=== PATIENT | male | born 1965 | race Caucasian/White ===

== ENCOUNTER 2024-07-12 13:35 | Inpatient (IN) ==
[2024-07-12 14:04] LABS: iSTAT Creatinine 1.4 mg/dl (0.6-1.3); iSTAT Hemoglobin 15.6 g/dl (14.0-18.0); iSTAT Ionized Calcium 1.17 mmol/l (1.12-1.32); iSTAT Potassium 4.3 mmol/L (3.3-5.0)
--- NOTE | 2024-07-12 14:11 | CT Scan Report ---
CT head/brain wo con CLINICAL HISTORY: seizures. TECHNIQUE: Multiple axial CT images of the head were obtained without contrast. A dose lowering tech nique was utilized adhering to the principles of ALARA. CT DOSE: 625.8 mGy.cm COMPARISON: 09/01/2015 FINDINGS: There is a 5 cm area of high density centered in the region of a prior right-sided choroid plexus mass or AVM. The hypodensity likely represents a combination of embolization coils, glue, and calcification. This causes extensive spray artifact at that level, limiting evaluation. No intracrani al hemorrhage seen. No mass effect, midline shift, or hydrocephalus. No skull fracture seen. There is a mucous retention cyst in the left maxillary sinus. IMPRESSION: No acute findings seen. ACT 112: Negative or not required by law. The above report was generated using voice recognition software. It may contain grammatical, syntax o r spelling errors. Electronically signed by: Nixon Sales M.D. 07/12/2024 2:09 PM
[2024-07-12 14:29] LABS: Basophils # (auto) 0.03 K/uL (0.00-0.20); Basophils % (auto) 0.4 %; Eosinophils # (auto) 0.01 K/uL (0.00-0.50); Eosinophils % (auto) 0.1 %; Hematocrit (blood only) 45.5 % (42.0-52.0); Hemoglobin 15.2 g/dl (14.0-18.0); Immature Granulocytes # (auto) 0.03 K/uL (0.01-0.20); Immature Granulocytes % (auto) 0.4 %; Lymphocytes # (auto) 0.68 K/uL (1.20-3.40); Lymphocytes % (auto) 9.6 %; Mean Corpuscular Hemoglobin 26.7 pg (25.0-34.0); Mean Corpuscular Hgb Conc 33.4 g/dL (32.0-36.0); Mean Corpuscular Volume 79.8 fL (80.0-100.0); Monocytes # (auto) 0.36 K/uL (0.11-0.59); Monocytes % (auto) 5.1 %; Neutrophils # (auto) 5.99 K/uL (1.40-6.50); Neutrophils % (auto) 84.4 %; Platelet Count 165 K/uL (130-400); RDW Coefficient of Variation 13.6 % (11.5-14.5); RDW Standard Deviation 38.5 fL (36.4-46.3)
[2024-07-12 14:46] LABS: Base Excess VBG -8.2 mEq/L; HCO3 VBG 16 mmol/L; Oxygen Saturation VBG 95.1 %; PCO2 VBG 30 mmHg (38-50); PO2 VBG 71 mmHg; pH VBG 7.34 (7.36-7.41)
[2024-07-12 14:47] LABS: Albumin Globulin Ratio 1.2 (0.9-2); Albumin Level 4.1 gm/dl (3.4-5.0); BUN Creatinine Ratio 23.1 (10-20); Bilirubin,Total 1.1 mg/dl (0.2-1.0); Calcium 9.5 mg/dl (8.6-10.3); Creatinine Clr Calc Pharmacy 61.4 ml/min; Globulin 3.3 gm/dl (2.5-4.0); Potassium 4.5 mmol/L (3.5-5.1); Total Protein 7.4 gm/dl (6.0-8.3)
--- NOTE | 2024-07-12 15:12 | Emergency Department Note ---
Impression & Plan Seizure, Acute confusion, High anion gap metabolic acidosis ED Provider Note NAME: JIMY MAKI AGE: 59 SEX: M : 1965 ARRIVES VIA: Ambulance INFORMANT: Patient, ED PROVIDER(S): Sadaf Zarco MD CHIEF COMPLAINT: Seizure HPI: This is a 59-year-old male presenting for seizure. Patient is with his stepfather who states that he has had previous AVM and seizure disorder. He notes that he has not had a seizure in over 6 years until the last 1 week. He notes he has had multiple seizure the past few days. Last seizure was last night. Patient been confused throughout the day. Unable to walk at this time. Does not follow commands ROS: See above HPI for pertinent positives & negatives. A total of 10 systems reviewed and were otherwise negative. PAST MEDICAL HISTORY: See Below PAST SURGICAL HISTORY: See Below FAMILY HISTORY: See Below SOCIAL HISTORY: See Below HOME MEDICATIONS: See Below ALLERGIES: See Below VITALS: See Below PHYSICAL EXAMINATION: General: resting comfortably in no acute distress Head: Normocephalic and atraumatic Eyes: Normal inspection Ear, nose, throat: Normal external exam Neck: Normal range of motion Respiratory: lungs clear to auscultation bilaterally Cardiovascular: Regular rate/rhythm, no murmur GI: soft, nontender, no guarding or rebound Extremities: nontender, moves all extremities Neuro: Patient is awake, arousable, does not follow commands, moves right upper and lower extremity spontaneously, some movement of the left upper and lower extremity Skin: Warm, dry, and intact MEDICAL DECISION MAKING: This is a 59-year-old male presenting for possible seizure. Patient at this time does appear altered, not moving left side is much as right side. He does not follow commands. Will do screening head CT, basic blood work. -No leukocytosis or anemia noted. VBG shows 7.34/30. Electrolytes within normal limits however there is an anion gap of over 22. Creatinine 1.43. Will get a respiratory panel, lactic acid level. -Consider seizure, stroke, Tate's paralysis -Vital signs are reviewed and are surprisingly within normal limits -Respiratory panel shows rhino/enterovirus -CTs of the head, CTA head/neck do not reveal acute process -ECG independently interpreted by me with normal sinus rhythm, rate of 98, normal axis, normal [place], normal QRS, normal QTc, no ST segment elevations consistent with STEMI criteria -Overall patient's workup here is reassuring however he still is altered with possible left lower extremity weakness. Will admit for further seizure/stroke/TIA workup. Differential diagnosis: Seizure, status elliptica's, stroke, TIA, Tate's paralysis, meningitis Independent History obtained from: Stepfather Diagnostics interpreted by me: ECG: See above Cardiac Monitoring: An order was placed for continuous cardiac monitoring. The monitor shows a rate of 92 with sinus rhythm. Past Med/Surg History Problem List (Updated 07/12/24 @ 20:46 by Sadaf Zarco MD) High anion gap metabolic acidosis (Acute) Acute confusion (Acute) Seizure (Acute) Metabolic acidosis AVM (arteriovenous malformation) Breakthrough seizure Tinea pedis Status post partial amputation of foot Loss of sensation History of diabetic ulcer of foot Diabetic peripheral neuropathy associated with type 2 diabetes mellitus Acute renal failure (ARF) (Acute) H/O repair of right rotator cuff (Chronic) Amputated toe (Chronic) "right great toe due to osteomyelitis" Dyslipidemia (Chronic) HTN (hypertension) (Chronic) Diabetes mellitus (Chronic) Medical History Hx of diabetic foot ulcer Gait instability uses cane and walker "due to mobility issues from my AVM" History of seizure "only happened once, this is when they found out he had an AVM" Shakes "due to his AVM" Sleep apnea does not use his device anymore AVM (arteriovenous malformation) brain does not f/u w/specialist Neuropathy Anxiety Diabetes mellitus, type 2 Dyslipidemia Hypertension Surgical History Hx of repair of right rotator cuff History of amputation of toe rt great toe History of bronchoscopy Hx of blepharoplasty bilateral Social History Smoking Status: Never smoker Second Hand Exposure: No; Do You Dip or Chew Tobacco: No; Hx Alcohol Use: Yes Alcohol type: beer Hx Substance Use: No Preferred Language: Yakut Communication Ability: Effective Market Reporter Required: No Beliefs That Will Affect Care: None Current Living Situation: Parent Feels Safe at Home: Yes Assistive Devices: Cane, Glasses and Walker Allergies Allergies Allergy/AdvReac Type Severity Reaction Status Date / Time No Known Drug Allergies Allergy Unknown DENIES Verified 09/01/23 07:03 ALLERGIES Home Meds Home Medications Medication Instructions Recorded Confirmed aspirin 81 mg capsule 81 mg PO QPM 08/30/23 07/12/24 empagliflozin 25 mg tablet 25 mg PO DAILY 07/12/24 07/12/24 (Jardiance) Results & Data (ED) Vital Signs Vital Signs - 24 hr 07/12/24 13:43 07/12/24 13:51 07/12/24 14:05 Temperature 37.1 C Temperature Source Oral Pulse Rate 94 H 98 H Pulse Rate [Apical] Respiratory Rate 16 Respiratory Effort / Characteristics Blood Pressure 118/79 Blood Pressure [Right Arm] Blood Pressure Mean 92 Blood Pressure Mean [Right Arm] Blood Pressure Position [Right Arm] Pulse Oximetry 97 97 Oxygen Delivery Method Room Air Room Air Sepsis Recent Fever Within 48 Hours No Sepsis New/Unexplained Change in Mental Status N/A Sepsis Action Taken by Nursing No Action Required 07/12/24 14:05 07/12/24 16:00 07/12/24 17:41 Temperature 37.1 C Temperature Source Oral Pulse Rate 101 H Pulse Rate [Apical] 95 H 100 H Respiratory Rate 15 22 Respiratory Effort / Characteristics Non-Labored Spontaneous Non-Labored Spontaneous Blood Pressure Blood Pressure [Right Arm] 118/79 136/84 Blood Pressure Mean Blood Pressure Mean [Right Arm] 92 101 Blood Pressure Position [Right Arm] Lying Lying Pulse Oximetry 96 95 Oxygen Delivery Method Room Air Room Air Sepsis Recent Fever Within 48 Hours Sepsis New/Unexplained Change in Mental Status Sepsis Action Taken by Nursing Laboratory Data 07/12/24 13:47 07/12/24 13:47 Lab Results 07/12/24 07/12/24 07/12/24 Range/Units 13:47 13:52 14:40 WBC 7.10 (4.8-10.8) K/ul RBC 5.70 (4.70-6.10) M/uL Hgb 15.2 (14.0-18.0) g/dl POC Hgb 15.6 (14.0-18.0) g/dl Hct 45.5 (42.0-52.0) % POC Hct 46 (42-52) % MCV 79.8 L (80.0-100.0) fL MCH 26.7 (25.0-34.0) pg MCHC 33.4 (32.0-36.0) g/dL RDW Std Deviation 38.5 (36.4-46.3) fL RDW Coeff of Brain 13.6 (11.5-14.5) % Plt Count 165 (130-400) K/uL MPV 9.0 L (9.4-12.4) fL Immature Gran % (Auto) 0.4 % Neut % (Auto) 84.4 % Lymph % (Auto) 9.6 % [place] % (Auto) 5.1 % Eos % (Auto) 0.1 % Baso % (Auto) 0.4 % Neut # (Auto) 5.99 (1.40-6.50) K/uL Lymph # (Auto) 0.68 L (1.20-3.40) K/uL [place] # (Auto) 0.36 (0.11-0.59) K/uL Eos # (Auto) 0.01 (0.00-0.50) K/uL Baso # (Auto) 0.03 (0.00-0.20) K/uL Immature Gran # (Auto) 0.03 (0.01-0.20) K/uL VBG pH 7.34 L (7.36-7.41) VBG pCO2 30 L (38-50) mmHg VBG pO2 71 mmHg VBG HCO3 16 mmol/L VBG O2 Saturation 95.1 % VBG Base Excess -8.2 mEq/L POC Sodium 138 (135-144) mmol/L Sodium 140 (136-145) mmol/L POC Potassium 4.3 (3.3-5.0) mmol/L Potassium 4.5 (3.5-5.1) mmol/L POC Chloride 103 (101-112) mmol/L Chloride 100 (98-107) mmol/L Carbon Dioxide 18 L (21-32) mmol/L POC Total CO2 19 L (24-31) mmol/L Anion Gap 22 H (3-11) POC Anion Gap 21.0 (16-25) mmol/L POC BUN 34 H (7-18) mg/dl BUN 33 H (6-23) mg/dl Creatinine 1.43 H (0.6-1.4) mg/dl POC Creatinine 1.4 H (0.6-1.3) mg/dl Est Cr Clr Drug Dosing 61.4 ml/min eGFR 56.44 BUN/Creatinine Ratio 23.1 H (10-20) Glucose 198 H (70-99(Fasting)) mg/dl POC Glucose (other) 207 H (70-99) mg/dl Lactate (0.4-2.0) mmol/L Calcium 9.5 (8.6-10.3) mg/dl POC Ioniz Calcium Eric 1.17 (1.12-1.32) mmol/l Total Bilirubin 1.1 H (0.2-1.0) mg/dl AST 18 (13-39) U/L ALT 9 (7-52) U/L Alkaline Phosphatase 84 (34-104) U/L Total Protein 7.4 (6.0-8.3) gm/dl Albumin 4.1 (3.4-5.0) gm/dl Globulin 3.3 (2.5-4.0) gm/dl Albumin/Globulin Ratio 1.2 (0.9-2) Ethyl Alcohol mg/dL (<10.0) mg/dl Adenovirus (PCR) (NotDetected) B. pertussis DNA (PCR) (NotDetected) B.parapertussis DNA PCR (NotDetected) C. pneumoniae DNA (PCR) (NotDetected) Coronavirus OC43 (PCR) (NotDetected) Coronavirus HKU1 (PCR) (NotDetected) Coronavirus 229E (PCR) (NotDetected) SARS-CoV-2 (PCR) (NotDetected) Coronavirus NL63 (PCR) (NotDetected) Human Metapneumovir PCR (NotDetected) Influenza Type A (PCR) (NotDetected) Influenza Type B (PCR) (NotDetected) M. pneumoniae (PCR) (NotDetected) Parainfluenza 1 (PCR) (NotDetected) Parainfluenza 2 (PCR) (NotDetected) Parainfluenza 3 (PCR) (NotDetected) Parainfluenza 4 (PCR) (NotDetected) RSV (PCR) (NotDetected) Entero/Rhino (PCR) (NotDetected) 07/12/24 07/12/24 Range/Units 15:09 15:26 WBC (4.8-10.8) K/ul RBC (4.70-6.10) M/uL Hgb (14.0-18.0) g/dl POC Hgb (14.0-18.0) g/dl Hct (42.0-52.0) % POC Hct (42-52) % MCV (80.0-100.0) fL MCH (25.0-34.0) pg MCHC (32.0-36.0) g/dL RDW Std Deviation (36.4-46.3) fL RDW Coeff of Brain (11.5-14.5) % Plt Count (130-400) K/uL MPV (9.4-12.4) fL Immature Gran % (Auto) % Neut % (Auto) % Lymph % (Auto) % [place] % (Auto) % Eos % (Auto) % Baso % (Auto) % Neut # (Auto) (1.40-6.50) K/uL Lymph # (Auto) (1.20-3.40) K/uL [place] # (Auto) (0.11-0.59) K/uL Eos # (Auto) (0.00-0.50) K/uL Baso # (Auto) (0.00-0.20) K/uL Immature Gran # (Auto) (0.01-0.20) K/uL VBG pH (7.36-7.41) VBG pCO2 (38-50) mmHg VBG pO2 mmHg VBG HCO3 mmol/L VBG O2 Saturation % VBG Base Excess mEq/L POC Sodium (135-144) mmol/L Sodium (136-145) mmol/L POC Potassium (3.3-5.0) mmol/L Potassium (3.5-5.1) mmol/L POC Chloride (101-112) mmol/L Chloride (98-107) mmol/L Carbon Dioxide (21-32) mmol/L POC Total CO2 (24-31) mmol/L Anion Gap (3-11) POC Anion Gap (16-25) mmol/L POC BUN (7-18) mg/dl BUN (6-23) mg/dl Creatinine (0.6-1.4) mg/dl POC Creatinine (0.6-1.3) mg/dl Est Cr Clr Drug Dosing ml/min eGFR BUN/Creatinine Ratio (10-20) Glucose (70-99(Fasting)) mg/dl POC Glucose (other) (70-99) mg/dl Lactate 1.6 (0.4-2.0) mmol/L Calcium (8.6-10.3) mg/dl POC Ioniz Calcium Eric (1.12-1.32) mmol/l Total Bilirubin (0.2-1.0) mg/dl AST (13-39) U/L ALT (7-52) U/L Alkaline Phosphatase (34-104) U/L Total Protein (6.0-8.3) gm/dl Albumin (3.4-5.0) gm/dl Globulin (2.5-4.0) gm/dl Albumin/Globulin Ratio (0.9-2) Ethyl Alcohol mg/dL < 10.0 (<10.0) mg/dl Adenovirus (PCR) Not Detected (NotDetected) B. pertussis DNA (PCR) Not Detected (NotDetected) B.parapertussis DNA PCR Not Detected (NotDetected) C. pneumoniae DNA (PCR) Not Detected (NotDetected) Coronavirus OC43 (PCR) Not Detected (NotDetected) Coronavirus HKU1 (PCR) Not Detected (NotDetected) Coronavirus 229E (PCR) Not Detected (NotDetected) SARS-CoV-2 (PCR) Not Detected (NotDetected) Coronavirus NL63 (PCR) Not Detected (NotDetected) Human Metapneumovir PCR Not Detected (NotDetected) Influenza Type A (PCR) Not Detected (NotDetected) Influenza Type B (PCR) Not Detected (NotDetected) M. pneumoniae (PCR) Not Detected (NotDetected) Parainfluenza 1 (PCR) Not Detected (NotDetected) Parainfluenza 2 (PCR) Not Detected (NotDetected) Parainfluenza 3 (PCR) Not Detected (NotDetected) Parainfluenza 4 (PCR) Not Detected (NotDetected) RSV (PCR) Not Detected (NotDetected) Entero/Rhino (PCR) DETECTED A (NotDetected) Administered Medications Sodium Bicarbonate 75 meq/ (Dextrose) 1,075 mls @ 80 mls/hr IV .[id number] MARIANO Stop: 07/13/24 09:26 Last Admin: 07/12/24 20:31 Dose: 80 mls/hr Documented By: SYDNEY Levetiracetam (Levetiracetam 500 Mg/5 Ml Vial) 500 mg IV Q12H MARIANO Stop: 08/11/24 18:59 Last Admin: 07/12/24 19:41 Dose: 500 mg Documented By: AN Discontinued Medications Sodium Chloride (Nss) 1,000 mls @ 999 mls/hr IV .[id number] ONE Stop: 07/12/24 17:00 Last Infusion: 07/12/24 18:27 Dose: Infused Documented By: Admin: 07/12/24 16:15 Dose: 999 mls/hr Documented By: IZABEL Ioversol (Optiray 320 125ml) 120 ml IV ONCE ONE Stop: 07/12/24 15:59 Last Admin: 07/12/24 15:59 Dose: 120 ml Documented By: ADELAIDE Levetiracetam (Levetiracetam 500 Mg/5 Ml Vial) 500 mg IV NOW STA Stop: 07/12/24 20:08 Last Admin: 07/12/24 20:30 Dose: 500 mg Documented By: AN Imaging Data Radiologist's Impression: Head CT 07/12/24 13:49 CT head/brain wo con CLINICAL HISTORY: seizures. TECHNIQUE: Multiple axial CT images of the head were obtained without contrast. A dose lowering technique was utilized adhering to the principles of ALARA. CT DOSE: 625.8 mGy.cm COMPARISON: 09/01/2015 FINDINGS: There is a 5 cm area of high density centered in the region of a prior right-sided choroid plexus mass or AVM. The hypodensity likely represents a combination of embolization coils, glue, and calcification. This causes extensive spray artifact at that level, limiting evaluation. No intracranial hemorrhage seen. No mass effect, midline shift, or hydrocephalus. No skull fracture seen. There is a mucous retention cyst in the left maxillary sinus. IMPRESSION: No acute findings seen. ACT 112: Negative or not required by law. The above report was generated using voice recognition software. It may contain grammatical, syntax or spelling errors. Electronically signed by: Nixon Sales M.D. 07/12/2024 2:09 PM Head CTA 07/12/24 15:12 Technique: Axial computed tomography images were obtained of the brain after the administration of intravenous contrast according to the CT angiogram protocol Comparison is made to the head CT dated 09/01/2015 Findings: Again seen is an apparent large vascular malformation within the right parietal lobe and right lateral vertical, with numerous embolization coils within it that produced surrounding artifact. There are some enlarged feeder vessels in the right vertex There is mild calcified plaque within the cavernous and supraclinoid segments of the internal carotid arteries bilaterally, without stenosis No definite stenosis is seen of the anterior, middle, or posterior cerebral artery circulations. 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 The remainder of the right anterior cerebral artery is supplied through the anterior communicating artery. The visualized vertebral arteries and the basilar artery appear unremarkable Impression: 1. No definite change in a large vascular malformation involving the right parietal lobe and right lateral ventricle, likely an arteriovenous malformation 2. No definite stenosis of the intracranial arteries Electronically signed by Maikel Farmer 07-12-2024 4:07 PM Neck CTA 07/12/24 15:12 Technique: Axial computed tomography images were obtained of the neck after the administration of intravenous contrast according to the CT angiogram protocol Findings: There are mild stenoses of the distal common carotid arteries bilaterally. There is a mild stenosis of the proximal right internal carotid artery with approximately 30% diameter narrowing. The remainder of the internal carotid arteries appear patent bilaterally. No stenosis of the external carotid arteries is seen The vertebral arteries are patent bilaterally with no significant stenosis seen. 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 Impression: Mild stenoses of the distal CCA and of the proximal right ICA Electronically signed by Maikel Farmer 07-12-2024 4:09 PM Discharge Plan Visit Data Chief Complaint: Seizure Stated Complaint: SEIZURE ED Provider: Sadaf Zarco Discharge Problem: Seizure, Acute confusion, High anion gap metabolic acidosis Patient Disposition: Admitted As Inpatient Discharge Instructions Interventions: ED Discharge Assessment Last Done: 07/12/24 19:55
[2024-07-12] MEDS: OPTIRAY 320 125ml IV ONE (15:59)
--- NOTE | 2024-07-12 16:07 | CT Scan Report ---
Technique: Axial computed tomography images were obtained of the brain after the administration of intravenous contrast according to the CT angiogram protocol Comparison is made to the head CT dated 09/01/2015 Findings: Again seen is an apparent large vascular malformation within the right parietal lobe and right lateral vertical, with numerous embolization coils within it that produced surrounding artifact. There are some enlarged feeder vessels in the right vertex There is mild calcified plaque within the cavernous and supraclinoid segments of the internal carotid arteries bilaterally, without stenosis No definite stenosis is seen of the anterior, middle, or posterior cerebral artery circulations. 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 The remainder of the right anterior cerebral artery is supplied through the anterior communicating artery. The visualized vertebral arteries and the basilar artery appear unremarkable Impression: 1. No definite change in a large vascular malformation involving the right parietal lobe and right lateral ventricle, likely an arteriovenous malformation 2. No definite stenosis of the intracranial arteries Electronically signed by Maikel Farmer 07-12-2024 4:07 PM
--- NOTE | 2024-07-12 16:10 | CT Scan Report ---
Technique: Axial computed tomography images were obtained of the neck after the administration of intravenous contrast according to the CT angiogram protocol Findings: There are mild stenoses of the distal common carotid arteries bilaterally. There is a mild stenosis of the proximal right internal carotid artery with approximately 30% diameter narrowing. The remainder of the internal carotid arteries appear patent bilaterally. No stenosis of the external carotid arteries is seen The vertebral arteries are patent bilaterally with no significant stenosis seen. 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 Impression: Mild stenoses of the distal CCA and of the proximal right ICA Electronically signed by Maikel Farmer 07-12-2024 4:09 PM
[2024-07-12] MEDS: SODIUM CHLORIDE 0.9% 1,000 ML IV ONE (16:15)
[2024-07-12 16:20] LABS: Adenovirus PCR Not Detected (NotDetected); Bordetella parapertussis PCR Not Detected (NotDetected); Bordetella pertussis PCR Not Detected (NotDetected); Chlamydia pneumoniae PCR Not Detected (NotDetected); Coronavirus 229E PCR Not Detected (NotDetected); Coronavirus CoV-2 (COVID19)PCR Not Detected (NotDetected); Coronavirus HKU1 PCR Not Detected (NotDetected); Coronavirus NL63 PCR Not Detected (NotDetected); Coronavirus OC43PCR Not Detected (NotDetected); Human Metapneumovirus PCR Not Detected (NotDetected); Influenza A PCR Not Detected (NotDetected); Influenza B PCR Not Detected (NotDetected); Mycoplasma pneumoniae PCR Not Detected (NotDetected); Parainfluenza Virus 1 PCR Not Detected (NotDetected); Parainfluenza Virus 2 PCR Not Detected (NotDetected); Parainfluenza Virus 3 PCR Not Detected (NotDetected); Parainfluenza Virus 4 PCR Not Detected (NotDetected); Respiratory Syncytial VirusPCR Not Detected (NotDetected); Rhinovirus/Enterovirus PCR DETECTED (NotDetected)
--- NOTE | 2024-07-12 18:39 | History & Physical Report ---
Date of Service July 12, 2024 Assessment & Plan (1) Breakthrough seizure: (2) AVM (arteriovenous malformation): (3) Metabolic acidosis: Plan: 59-year-old male with history of AVM, seizure, diabetes type 2, CKD stage III, interstitial lung disease, obstructive sleep apnea presenting with breakthrough seizures since yesterday. Breakthrough seizure AVM Not on any antiseizure medications at home CTA chest showing 5 cm hypodensity, right choroid plexus, consistent with AVM Brain MRI ordered EEG ordered Keppra 1 g IV now Keppra 500 Milligrams IV twice daily starting tomorrow Neurology consulted N.p.o. for now Seizure precautions Metabolic acidosis with high anion gap pH 7.3, CO2 30, pO2 71, bicarb 16 Lactic acid normal, BSG 201, alcohol negative Discussed with electrician telephone Dr. Gagnon, likely secondary to seizure Although lactic acid is normal, may take a while to rise as per nephro Recommend to start D5 water with 75 mmol of bicarb Repeat BMP tomorrow History of diabetes type 2 Patient reports he is not taking Jardiance or any other medications for diabetes Check A1c Insulin sliding scale for now CKD stage III Creatinine slightly elevated at 1.43 Monitor closely History of obstructive sleep apnea Interstitial lung disease Will verify if patient uses BiPAP DVT prophylaxis SCDs for now CODE STATUS Full code per patient Disposition Will need PT and OT evaluation Lives with family at home History of Present Illness Chief Complaint: Breakthrough seizures Since yesterday Primary Care Provider: David Nicole MD 59-year-old male with history of AVM, seizure, diabetes type 2, CKD stage III, interstitial lung disease, obstructive sleep apnea presenting with breakthrough seizures since yesterday. History obtained from patient's stepfather Sriram over the phone, permission obtained from patient who was trying to answer questions but was a poor historian. As per his stepfather, patient has been having more left-sided leg weakness lately. Leg weakness has been attributed to his right sided AVM. Weakness has progressed to the point that the patient fell twice on Wednesday as his leg gave out. Yesterday, patient while in bed was noted to have stiffening of the whole body, arms straightened up, and was shaking all of his extremities. This lasted for a few minutes. Patient was staring in space while the episode was occurring. He was tired, weak after the incident. Since that episode, patient was apparently noted to have multiple episodes, around 20 of generalized stiffening, and slurring of words. At the ER, patient was also noted to have 1 episode of generalized shaking which lasted for a few seconds. CT head showed a 5 cm area of high density in the right choroid plexus. CT angiogram head and neck showing mild stenosis of the distal CCA and proximal right ICA. On my exam, patient was seen resting in bed, sleeping but easily awakened, appears tired but trying to answer some questions. He was not oriented to place, but oriented to person. Denies headache, dizziness, chest pain, shortness of breath abdominal pain, focal weakness or numbness Allergies Allergy/AdvReac Type Severity Reaction Status Date / Time No Known Drug Allergies Allergy Unknown DENIES Verified 09/01/23 07:03 ALLERGIES Home Medications Medication Instructions Recorded Confirmed Type amlodipine 5 mg tablet 5 mg PO QPM 08/30/23 09/01/23 History aspirin 81 mg capsule 81 mg PO QPM 08/30/23 09/01/23 History atorvastatin 40 mg tablet 40 mg PO HS 08/30/23 09/01/23 History empagliflozin 12.5 mg-metformin 1 tab PO BID 08/30/23 09/01/23 History 1,000 mg tablet (Synjardy) escitalopram oxalate 10 mg tablet 10 mg PO QPM 08/30/23 09/01/23 History (Lexapro) gabapentin 400 mg capsule 400 mg PO TID 08/30/23 09/01/23 History insulin aspart U-100 100 unit/mL 4 unit subcut QPM 08/30/23 09/01/23 History (3 mL) subcutaneous pen (Novolog FlexPen U-100 Insulin aspart) insulin degludec 100 46 unit subcut HS 08/30/23 09/01/23 History unit-liraglutide 3.6 mg/mL(3 mL) subcutaneous pen (Xultophy 100/3.6) losartan 25 mg tablet 25 mg PO QPM 08/30/23 09/01/23 History nortriptyline 10 mg capsule 30 mg PO HS 08/30/23 09/01/23 History trazodone 100 mg tablet 100 mg PO HS PRN Sleep 08/30/23 09/01/23 History Past Med/Surg History Problem List (Updated 07/12/24 @ 18:48 by Bereket Cole MD) Metabolic acidosis AVM (arteriovenous malformation) Breakthrough seizure Tinea pedis Status post partial amputation of foot Loss of sensation History of diabetic ulcer of foot Diabetic peripheral neuropathy associated with type 2 diabetes mellitus Acute renal failure (ARF) (Acute) H/O repair of right rotator cuff (Chronic) Amputated toe (Chronic) "right great toe due to osteomyelitis" Dyslipidemia (Chronic) HTN (hypertension) (Chronic) Diabetes mellitus (Chronic) Medical History Hx of diabetic foot ulcer Gait instability uses cane and walker "due to mobility issues from my AVM" History of seizure "only happened once, this is when they found out he had an AVM" Shakes "due to his AVM" Sleep apnea does not use his device anymore AVM (arteriovenous malformation) brain does not f/u w/specialist Neuropathy Anxiety Diabetes mellitus, type 2 Dyslipidemia Hypertension Surgical History Hx of repair of right rotator cuff History of amputation of toe rt great toe History of bronchoscopy Hx of blepharoplasty bilateral Social History Smoking Status: Never smoker Second Hand Exposure: No; Do You Dip or Chew Tobacco: No; Hx Alcohol Use: Yes Alcohol type: beer Hx Substance Use: No Preferred Language: Bulgarian Communication Ability: Effective Hydro Excavation Operator Required: No Beliefs That Will Affect Care: None Current Living Situation: Parent Feels Safe at Home: Yes Assistive Devices: Cane, Glasses and Walker Review of Systems Review of Systems: all noted and negative except for above Physical Exam Physical Exam: General- oriented x 1-2, not in distress, speaks in sentences with no effort or accessory muscle use Appears weak Head- atraumatic Eyes- PERRL, EOMI, anicteric ENT- oropharynx clear Neck- supple, no JVD, no adenopathy, no thyromegaly; carotids +2/2, no bruits appreciated Lungs- clear to auscultation bilaterally, no rales/wheezes Heart- normal rate, regular rhythm; no murmur, no gallop, no rub appreciated Abdomen- normal bowel sounds, nondistended, soft, nontender, no masses or hepatosplenomegaly Extremities- no pretibial edema, no calf tenderness; peripheral pulses intact Right foot-absent great toe Neuro- Somewhat drowsy, oriented x 1-2; CN 2-12 grossly intact; motor 5/5 bilaterally;sensation 100% on all extremities; no other gross focal neurologic deficits Skin- warm & dry Results & Data Results & Data Vital Signs (Past 12 Hours) Vital Signs Temp Pulse Pulse Resp BP BP Pulse Ox 07/12/24 18:00 102 H 18 128/71 96 07/12/24 17:41 101 H 07/12/24 16:00 100 H 22 136/84 95 07/12/24 14:05 37.1 C 95 H 15 118/79 96 07/12/24 14:05 97 07/12/24 13:51 98 H 07/12/24 13:43 37.1 C 94 H 16 118/79 97 O2 Del Method 07/12/24 18:00 Room Air 07/12/24 17:41 07/12/24 16:00 Room Air 07/12/24 14:05 Room Air 07/12/24 14:05 Room Air 07/12/24 13:51 07/12/24 13:43 Room Air all noted and reviewed including below Code Status & VTE Plan VTE Prophylaxis Plan VTE Prophylaxis will be ordered: Yes
[2024-07-12] MEDS: levETIRAcetam 500 MG/5 ML VIAL IV SCH (19:41)
[2024-07-12] MEDS ORDERED: levETIRAcetam 500 MG/5 ML VIAL IV STA (19:55)
[2024-07-12] MEDS ORDERED: DEXTROSE 50% 50 ML SYRINGE IV PRN (19:55)
[2024-07-12] MEDS ORDERED: GLUCAGON FOR INJ 1 MG VIAL SQ PRN (19:55)
[2024-07-12] MEDS ORDERED: CARBOHYDRATES FOR HYPOGLYCEMIA PO PRN (19:55)
[2024-07-12] MEDS ORDERED: GLUCOSE 40% GEL 15 GM TUBE PO PRN (19:55)
[2024-07-12] MEDS ORDERED: LORazepam 2 MG/1 ML VIAL IV PRN (19:55)
[2024-07-12] MEDS ORDERED: GLUCOSE 10 TAB/TUBE PO PRN (19:55)
[2024-07-12 20:02] LABS: Appearance Urine Clear (Clear); Bacteria Urine Automated None Seen (None Seen); Bilirubin Urine Negative (Negative); Blood Urine Trace (Negative); Cast Urine Automated 0-2 /lpf (0-2); Color Urine Yellow; Epithelial Cell Urine Auto 0-2 /hpf (0-2); Glucose Urine UA 3+ (Negative); Ketones Urine 3+ (Negative); Leukocyte Esterase Urine Negative (Negative); Nitrite Urine Negative (Negative); Protein Urine 2+ (Negative); RBC Urine Automated 0-2 /hpf (0-2); Specific Gravity Urine > 1.045 (1.000-1.030); Urobilinogen Urine Negative (Negative); WBC Urine Automated 0-5 /hpf (0-5)
[2024-07-12] MEDS: levETIRAcetam 500 MG/5 ML VIAL IV STA (20:30)
[2024-07-12] MEDS: SODIUM BICARBONATE 8.4% 75 MEQ in DEXTROSE 5% 1,000 ML IV SCH (20:31)
[2024-07-12] MEDS: INSULIN ASPART PER UNIT CHARGE SC SCH (20:46)
[2024-07-12 21:26] LABS: Amphetamines+Metham, Urine Neg (Neg); Barbiturates, Urine Neg (Neg); Benzodiazepine, Urine Neg (Neg); Cocaine, Urine Neg (Neg); Fentanyl, Urine Neg (Neg); MDMA (Ecstacy), Urine Neg (Neg); Marijuana, Urine Neg (Neg); Methadone, Urine Neg (Neg); Opiate, Urine Neg (Neg); Phencyclidine, Urine Neg (Neg)
--- OUTSIDE RECORDS SUMMARY | 2024-07-12 22:18 | External Medical Summary ---
Author Name Unknown Address Unknown Organization [id number]:[facility] [place] - [address] [place] [address] Laboratory Report Ordering Provider Test Date Status STEPHANIE MENENDEZ 03/29/2024 14:29:24 Final Observation Date Value Abnormality Reference (Units ) Status HbA1C 03/29/2024 14:29:24 12.2 Above high normal 4. 0-5.6 (%) Final The use of HbA1c to monitor glycemic status is based on normal hemoglobin and HbA composition. This test should not be used in patients with abnormal hemoglobin that affects the half life of the red blood cell or the in vivo glycation rates. Glucose, estimated average 03/29/2024 14:29:24 303 Above high normal <126 (mg/dL) Antonino lemons Performing Location [facility] [place] - [address] [facility] [id number]
--- OUTSIDE RECORDS SUMMARY | 2024-07-12 22:18 | External Medical Summary | Summary of Care ---
Author Name Unknown Organization [facility] Address [address] [place] [address] Phone [phone] Care Team Providers Care Brand Mgr Name Role Phone David Nicole MD Primary Care Provider [phone] Reason for Visit * Reason Comments Return Visit 6 month return Encounter Details Date Type Department Care Team (Latest Contact Info) Description 03/29/2024 1:40 PM EDT Office Visit [facility] [address] [place] [address] David Nicole MD [address] [place] [phone] Type 2 diabetes mellitus with hemoglobin A1c goal of less than 7.0% ([facility])*; Diabetic polyneuropathy associated with type 2 diabetes mellitus ([facility]); Chronic kidney disease, stage 3a ([facility]); DM type 2 nursing care encounter ([facility]); 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 90 Tab 3 02/29/2020 Active Atorvastatin Calcium 40 MG Oral Tablet (Lipitor) Take 1 Tablet by mouth in the morning. 90 Tablet 3 09/27/2023 Active OneTouch Verio w/Device Kit Use up to 4 times a day E11.9 1 Kit 10/27/2023 Active OneTouch Verio In Vitro Strip (Glucose Blood) Use up to 4 times a day E11.9 100 Strip 11 10/27/2023 Active Empagliflozin 25 MG Oral Tablet (Jardiance)Indica tions:Type 2 diabetes mellitus with hemoglobin A1c goal of less than 7.0% (HCC) Take 1 Tablet by mouth in the morning. 90 Tablet 3 03/29/2024 Active Synjardy XR 12.5-1000 MG Oral Tablet Extended Release 24 Hour (Empagliflozin-me tFORMIN HCl ER) Take 1 Tablet by mouth in the morning and 1 Tablet before bedtime. 180 Tablet 3 09/27/2023 03/29/2024 Discontinued (Discharged) documented as of this encounter (statuses as of 03/30/2024) Active Problems Problem Noted Date Diagnosed Date Depression with anxiety 09/27/2023 Chronic kidney disease, stage 3a 12/17/2020 Overview: Per CKD protocol ILD (interstitial lung disease) 11/03/2020 Flaccid hemiplegia 11/03/2020 Diabetic polyneuropathy asso ciated with type 2 diabetes mellitus 11/03/2020 Acquired absence of right great toe 12/05/2018 MEETA on CPAP 11/11/2015 Overview: CPAP 9-15 cwp [facility] Cerebral AVM 09/02/2015 Type 2 diabetes mellitus wit h hemoglobin A1c goal of less than 8.0% 07/04/2014 Overview: ICD-10 update of inactive term HTN, goal below 130/80 07/04/2014 Dyslipidemia 07/04/2014 documented as of this encounter (statuses as of 03/30/2024) Resolved Problems Problem Noted Date Diagnosed Date Resolved Date Type 2 diabetes mellitus wit h stage 3a chronic kidney disease and hypertension 11/12/2020 09/26/2023 Overview: Per CKD protocol Recurrent major depressive disorder 02/29/2020 09/27/2023 Hypertension in stage 3 lunchroom mother carmita kidney disease due to type 2 diabetes mellitus 09/12/2018 11/14/2020 Overview: Per CKD protocol #1 DM type 2 with diabetic peripheral neuropathy 08/29/19 19 09/26/2023 Type 2 diabetes mellitus wit h chronic kidney disease and hypertension 08/29/2018 09/13/2018 Overview: Per CKD protocol #1 Severe obesity with body mas s index (BMI) of 35.0 to 39.9 with serious comorbidity 04/05/2017 Overview: Per Obesity protocol #1 ICD-10 update of inactive diagnosis AVM (arteriovenous malformation) 10/30/2015 03/24/2017 Overview: S/p stage II embolization Kidney disease, chronic, sta ge III (GFR 30-59 ml/min) 09/09/2015 10/12/2018 Overview: Per CKD protocol #1 Seizure 09/01/2015 12/18/2016 Brain lesion 09/01/2015 03/24/2017 Obesity, Class II, BMI 35-39 .9, isolated (see actual BMI) 03/10/2015 09/27/2023 Overview: Per Obesity protocol #1 Diabetic neuropathy 10/02/2014 08/29/19 19 Lagophthalmos, unspecified 05/22/2005 0 03/24/2017 documented as of this encounter (statuses as of 03/30/2024) Immunizations Name Administration Dates Next Due Hepatitis B, 20+ yrs 06/21/2017,03/24/2017,12/18 Pneumococcal Polysaccharide PPV23 (Pneumovax) 10/02/2014 Seasonal Influenza, PF, 6 M & above, IM , (FluLaval or Fluzone) 03/20/2021,02/29/2020,07/13/2019,05/23,06/24/2017 TDAP (age 10 and older)(Boostrix) 07/04/2014 documented as of this encounter Social History Tobacco Use Types Packs/Day Years Used Date Smoking Tobacco: Never Smokeless Tobacco: Never Tobacco Cessation:Counseling Given: Not Answered Alcohol Use Standard Drinks/Week Comments No 0 (1 standard drink = 0.6 oz pur e alcohol) PHQ-2 Answer Date Recorded PHQ-2 Score 0 02/29/2020 Hunger Vital Sign Answer Date Recorded Worried About Running Out of Food in the Last Ye ar Never true 02/29/2020 Ran Out of Food in the Last Year Never true 02/29/2020 Utilities Answer Date Recorded Do you have trouble paying y our heating, water, or electric bill? (Adult - for ages 18 years and over) Not on file 12/21/2023 Is your family able to pay t he heat, water, or electric bill? (Household - for ages 0-17 years) Not on file 12/21/2023 Does your family have access to good internet? (Household - for ages 0-17 years) Not on file 12/21/2023 Social Connections Answer Date Recorded How often do you feel lonely or isolated from those around you? (Adult - for ages 18 years and over) Not on file 12/21/2023 Sex and Gender Information Value Date Recorded Sex Assigned at Male 03/29/2024 1:52 PM EDT Gender Identity Male 03/29/2024 1:52 PM EDT Sexual Orientation Straight 03/29/2024 1: 52 PM EDT Job Start Date Occupation Industry Not on file Not on file Not on file documented as of this encounter Last Filed Vital Signs Vital Sign Reading Time Taken Comments Blood Pressure 110/72 03/29/2024 1:49 PM EDT Pulse 94 03/29/2024 1:49 PM EDT Temperature - - Respiratory Rate 16 03/29/2024 1:49 PM EDT Oxygen Saturation 99% 03/29/2024 1:49 PM EDT Inhaled Oxygen Concentration - - Weight - - Height - - Body Mass Index - - documented in this encounter Functional Status Functional Status Response Date of Assess ment Are you deaf or do you have serious difficulty h earing? No 03/02/2016 Are you blind or do you have serious difficulty seeing, even when wearing glasses? No 03/02/2016 Do you have serious difficul ty walking or climbing stairs? (5 years old or older) No 03/02/2016 Do you have difficulty dress ing or bathing? (5 years old or older) No 03/02/2016 Because of a physical, menta l, or emotional condition, do you have difficulty doing errands alone such as visiting a doctor s office or shopping? (15 years old or older) No 03/02/20 16 Cognitive Status Response Date of Assessm ent Because of a physical, menta l, or emotional condition, do you have serious difficulty concentrating, remembering, or making decisions? (5 years old or older) No 03/02/2016 documented as of this encounter Patient Instructions * Patient Instructions* Adalberto CORTES Mathews - 03/29/2024 2:20 PM EDT Diabetes: Keeping Feet Healthy Inspect your feet every day for signs of a problem. Diabetes can damage nerves in your feet and cause neuropathy. This condition makes it hard for you to feel injuries or sore spots. Diabetes can also change blood flow, making it harder for small problems, like a blister, to heal properly. In fact, minor injuries can quickly become serious infections that send you to the hospital. Practice self-care to protect your feet and keep them healthy. Take Special Care Inspect your feet daily for problems such as redness, blisters, cracks, dry skin, or numbness. Use a mirror to see the bottoms of your feet. Or, ask for help. Manage your diabetes. Monitor and control your blood sugar. Take all your medications as prescribed. Avoid walking barefoot, even indoors. Wash your feet with warm water and mild soap. Dry well, especially between toes. Dont treat corns or calluses yourself. Talk to your doctor or improvement intern (a doctor who specializes in foot care) if you need assistance trimming your toenails. Use moisturizing cream or lotion if you have dry skin, but dont use it between toes. Dont use heating pads on your feet. If you have neuropathy, you could get a burn and not feel it. Stop smoking. Smoking restricts blood flow and can make it harder for wounds to heal. Have Regular Checkups Foot problems can develop quickly. So be sure to follow your healthcare teams schedule for regular checkups. During office visits, take off your shoes and socks as soon as you get in the exam room. Ask your healthcare provider to examine your feet for problems. This will make it easier to find and treat small skin irritations before they get worse. Regular checkups can also help keep track of the blood flow and feeling in your feet. If you have neuropathy, you may need to have checkups more often. Wear Proper Footwear Wearing proper footwear is very important. If areas of your feet have been damaged by too much pressure, your healthcare provider may recommend changing your footwear. In some cases, avoiding high heels or tight work boots may be all thats needed. Or, your healthcare provider may recommend special shoes or custom inserts. These help protect your feet and keep existing irritations from getting worse. If you need special footwear, ask your healthcare provider if you qualify for [facility] diabetic shoe program. Make Sure Shoes and Socks Fit Any pair of shoes--new or old--should feel comfortable as soon as you put them on. There shouldnt be any rubbing when you walk. Wear the right shoe for any activity. For instance, a running shoe is designed to keep your feet injury-free while jogging. Buy shoes at the end of the day, when your feet are larger. Make sure they provide support without feeling too loose. Make sure your socks fit, t oo. Wear soft, seamless, well-padded socks for activity. Cotton or microfiber socks are best to help to absorb sweat. To protect your feet, avoid shoes that are open-toed or open-heeled. If you have questions about what kinds of shoes and socks are best, talk to your healthcare team. Get Regular Exercise Regular exercise improves blood flow in your feet. It also increases foot strength and flexibility.Gentle exercises, like walking or riding a stationary bicycle, are best. You can also do special foot exercises. Just be sure to talk with your healthcare provider before starting any exercise program. Also mention if any exercise causes pain, redness, or other signs of foot problems. Note: If you have any kind of break in the skin of your foot or ankle, keep the area clean. Then call your doctor--especially if the area doesnt appear to be healing. [id number] [employer] [address] [place] [address], [place] [address]. All rights reserved. This information is not intended as a substitute for professional medical care. Always follow your healthcare professional's instructions. documented in this encounter Progress Notes * David Nicole MD - 03/30/2024 12:31 AM EDT SUBJECTIVE: Faisal Ghosh is a 58 year old male. Chief Complaint Patient presents with Return Visit 6 month return HPI: Medically complex disabled male in a wheelchair here for follow up. He stopped his diabetes medication awhile ago. He says that he can't have cataract surgery because they refused due to his A1c. He says that "the doctor got mad at me for drinking an iced tea and told me there was no way they wouldfix my cataracts. Feels fine. Needs updated labs today. BP at goal. Patient Active Problem List Diagnosis Type 2 diabetes mellitus with hemoglobin A1c goal of less than 8.0% ([facility]) HTN, goal below 130/80 Dyslipidemia Cerebral AVM MEETA on CPAP Acquired absence of right great toe ([facility]) ILD (interstitial lung disease) ([facility]) Flaccid hemiplegia ([facility]) Diabetic polyneuropathy associated with type 2 diabetes mellitus ([facility]) Chronic kidney disease, stage 3a ([facility]) Depression with anxiety Current Outpatient Medications Medication Sig Dispense Refill Empagliflozin 25 MG Oral Tablet (Jardiance) Take 1 Tablet by mouth in the morning. 90 Tablet 3 aspirin enteric coated 81 MG TBEC Take 1 Tab by mouth daily. 90 Tab 3 Atorvastatin Calcium 40 MG Oral Tablet (Lipitor) Take 1 Tablet by mouth in the morning. 90 Tablet 3 OneTouch Verio w/Device Kit Use up to 4 times a day E11.9 1 Kit 0 OneTouch Verio In Vitro Strip (Glucose Blood) Use up to 4 times a day E11.9 100 Strip 11 No current facility-administered medications for this visit. Allergy: Review of patient's allergies indicates: No Known Allergies OBJECTIVE: BP 110/72 | Pulse 94 | Resp 16 | SpO2 99% Gen: nad, in wheelchair, wearing sunglasses Lungs: ctab Heart: rrr, no mrg Ext: no c/c/e Skin: no rashes ASSESSMENT AND PLAN: (E11.9) Type 2 diabetes mellitus with hemoglobin A1c goal of less than 7.0% ([facility]) (primary encounter diagnosis) Plan: HEMOGLOBIN A1C, Empagliflozin 25 MG Oral Tablet (Jardiance) -check labs today (E11.42) Diabetic polyneuropathy associated with type 2 diabetes mellitus ([facility]) Plan: ALBUMIN / CREATININE RATIO, URINE (N18.31) Chronic kidney disease, stage 3a ([facility]) Plan: HGB, RENAL FUNCTION PANEL, CANCELED: PHOSPHORUS (E11.9) DM type 2 nursing care encounter ([facility]) Plan: DIABETES FOOT EXAM (I69.854) 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 No other complaints were offered at this time. David Nicole MD * Bisi Glover LPN - 03/29/2024 2:20 PM EDT DM Foot Exam completed today. Provider aware. Bisi Glover LPN Socks and Shoes Removed for Annual Diabetic Foot Screening RIGHT FOOT: No Reddened, Cracking, Or Open Areas Noted. RIGHT Dorsalis Pedis Pulse: Palpable RIGHT Posterior Tibial Pulse: Palpable RIGHT Monofilament:Patient reports feeling monofilament pressure on plantar surface of foot LEFT FOOT: No Reddened, Cracking or Open Areas Noted. LEFT Dorsalis Pedis Pulse: Palpable LEFT Posterior Tibial Pulse: Palpable LEFT Monofilament:Patient reports feeling monofilament pressure on plantar surface of foot Do you need diabetic shoes: No documented in this encounter Nursing Notes * Bisi Glover LPN - 03/29/2024 1:49 PM EDT The patient has been properly identified by confirmation of name and date of . Chief Complaint Patient presents with Return Visit 6 month return documented in this encounter Plan of Treatment Pending Results Name Type Priority Associated Diagnoses Date /Time RENAL FUNCTION PANEL Lab Routine Chronic kidney disease, stage 3a (HCC) 03/29/2024 2:29 PM EDT HEMOGLOBIN A1C Lab Routine Type 2 diabetes mellitus with hemoglobin A1c goal of less than 7.0% (HCC) 03/29/2024 2:29 PM EDT Scheduled Orders Name Type Priority Associated Diagnoses Orde r Schedule RENAL FUNCTION PANEL Lab Routine Chronic kidney disease, stage 3a (HCC) Expected: 03/29/2024 (Approximate), Expires: 03/29/2025 HEMOGLOBIN A1C Lab Routine Type 2 diabetes mellitus with hemoglobin A1c goal of less than 7.0% (HCC) Expected: 03/29/2024 (Approximate), Expires: 03/29/2025 Health Maintenance Due Date Last Done Comments Colonoscopy 2010 Fecal Occult Blood Test 2010 Sigmoidoscopy 2010 Pneumococcal Vaccine: Pediatrics (0 to 5 Years) and At-Risk Patients (6 to 64 Years) (2 of 2 - PCV) 10/03/2015 10/02/2014 Cologuard 07/09/2020 07/09/2017, 07/06/2017 Colorectal Cancer Screening 07/09/2020 CKD PHOS USE SMARTSET 10039 01/28/202201/03, 02/23/2020, 09/01/2018, Additional history exists Diabetic Eye Exam 03/20/2022 03/20/2021, , 01/30/2015, Additional history exists Influenza Vaccine (FLU shot) (#1) 2024 03/20/2021, 02/29/2020, 07/13/2019, Additional history exists GFR 03/29/2024 09/27/2023, 01/03, 10/30/2020, Additional history exists HbA1c 03/29/2024 09/27/2023, 01/03, 10/30/2020, Additional history exists DTap/Tdap Vaccines (2 - Td or Tdap) 07/04/2024 07/04/2014 B-12 09/26/2024 09/27/2023, 02/03, 09/01/2018, Additional history exists Albumin/Creatinine Ratio 03/29/2025 024, 10/29/2020, 07/13/2019, Additional history exists CKD HGB USE SMARTSET 85001 03/29/202503/29, 10/30/2020, 10/30/2020, Additional history exists Depression Monitoring 03/29/2025 03/29/2024, 020 Diabetic Foot Exam 03/29/2025 03/29/2024, 0 01/28/2021, 07/13/2019, Additional history exists Lipid Panel 01/28/2026 01/28/2021, 02/03, 07/13/2019, Additional history exists Hepatitis B Vaccine Completed 06/21/2017, 03/24/2017, 12/18/2016 COVID-19 Vaccine Discontinued HPV (Gardasil) Vaccine Aged Out No lo nger eligible based on patient's age to complete this topic MENINGOCOCCAL (MENACTRA/MENVEO) Aged Out No longer eligible based on patient's age to complete this topic Zoster Vaccines Discontinued documented as of this encounter Medical Devices Implanted Type Area Pack Worker Supervisor Device Identifier Shelf Expiration Date Model / Serial / Lot Ev3 Jamaal 18 Liquid Embo System Implanted:Qty : 1 on 04/22/2016 by Laith Rosales MD at OR [facility] Tissue - Non Human N/A: Head [employer] 09/20/2018 [id number] / [id number] / [id number] Ev3 Jamaal 18 Liquid Embo System Implanted:Qty : 1 on 04/22/2016 by Laith Rosales MD at OR [facility] [place] Tissue - Non Human N/A: Head [employer] 09/20/2018 [id number] / [id number] / [id number] Ev3, [place] 34, Liquid Embolic Material, 1.5ml Implanted:Qty : 2 on 09/30/2015 by Laith Rosales MD at OR [facility] Left: Head 06/04/2018 [id number] / [id number] / [id number] Description:Left TEREZA Ev3, [place] 18, Liquid Embolic Material, 1.5ml Implanted:Qty : 1 on 09/30/2015 by Laith Rosales MD at OR [facility] Left: Head 04/08/2018 [id number] / [id number] / [id number] Description:Left TEREZA Jamaal 18, 1.5 Ml Ev3, Liquid Embolic Material Implanted:Qty : 1 on 10/30/2015 by Laith Rosales MD at OR [facility] Right: Head 04/08/2018 [id number] / [id number] / [id number] Description:TEREZA [place] 18, 1.5 Ml Ev3, Liquid Embolic Material Implanted:Qty : 1 on 10/30/2015 by Laith Rosales MD at OR [facility] [place] Right: Head [employer] 04/21/2018 [id number] / [id number] / [id number] Description:TEREZA Jamaal 18, 1.5 Ml Ev3, Liquid Embolic Material Implanted:Qty : 1 on 10/30/2015 by Laith Rosales MD at OR [facility] Right: Head [employer] 04/21/2018 [id number] / [id number] / [id number] Description:TEREZA [employer], Jamaal Ev3 18, 1.5 Ml, Liquid Embolic Material, Implanted:Qty : 1 on 03/02/2016 by Laith Rosales MD at OR [facility] Right: Head 09/09/2018 [id number] / [id number] / [id number] Description:TEREZA documented as of this encounter Results * HGB (03/29/2024 2:29 PM EDT) [facility] HGB 14.3 14.0 - 16.8 g/dL 03/29/2024 2:39 PM EDT LABORATORY [facility] [address] Blood Venous blood specimen / Unknown Venipuncture / Unknown 03/29/2024 2:29 PM EDT 03/29/2024 2:29 PM EDT David Nicole MD LAB BLOOD ORDERAB LES LABORATORY [facility] [address] [place] [address] * (ABNORMAL) ALBUMIN / CREATININE RATIO, URINE (03/29/2024 2:29 PM EDT) Albumin, Random Urine 7.00 mg/dL 03/29/2024 11:10 PM EDT LABORATORY [facility] Creatinine, Random Urine 25 mg/dL 03/29/2024 11:10 PM EDT LABORATORY [facility] Albumin / Creatinine Ratio, Urine 280(H) <30 mg/g Creat 03/29/2024 11:10 PM EDT LABORATORY [facility] Urine Urine specimen / Unknown Non-blood Collection / Unknown 03/29/2024 2:29 PM EDT 03/29/2024 2:29 PM EDT Narrative LABORATORY [facility] - 03/29/2024 11:10 PM EDT Normal: <30 mg/g creatinine High: 30-300 mg/g creatinine Very High: >300 mg/g creatinine Nephrotic: >2200 mg/g creatinine David Nicole MD LAB URINE ORDERAB LES LABORATORY [facility] [address] [place] [address] documented in this encounter Visit Diagnoses Diagnosis Type 2 diabetes mellitus with hemoglobin A1c goal of less than 7.0% ([facility])- Primary Diabetic polyneuropathy associated with type 2 diabetes mellitus (HCC) Chronic kidney disease, stage 3a ([facility]) DM type 2 nursing care encounter ([facility]) Type II or unspecified type diabetes mellitus without mention of complication, not stated as uncontrolled 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 Question Answer Comments Discussion of Advance Directives occurred with: Patient * Full Code Date Activated Date Inactivated Comments 03/03/2016 1:59 AM 03/03/2016 2:41 PM This order r eflects the patients wishes and were consensually agreed upon. Question Answer Comments Discussion of Advance Directives occurred with: Patient Does the patient have a Living Will? No Does the patient have Health Care Power of Attor ana? No * Full Code Date Activated Date Inactivated Comments 10/30/2015 11:58 AM 10/31/2015 5:25 PM This order reflects the patients wishes and were consensually agreed upon. Question Answer Comments Discussion of Advance Directives occurred with: Not Discussed * Full Code Date Activated Date Inactivated Comments 09/30/2015 12:45 PM 10/01/2015 2:43 PM Question Answer Comments Discussion of Advance Directives occurred with: Not Discussed Does the patient have a Living Will? No Does the patient have Health Care Power of Attor ana? No * Full Code Date Activated Date Inactivated Comments 09/30/2015 10:54 AM 09/30/2015 12:45 PM This order reflects the patients wishes and were consensually agreed upon. Care Teams Brand Mgr Relationship Specialty Start Date End Date David Nicole MD [address] [facility] [place] [id number] PCP - General Family Medicine 09/27/23 documented as of this encounter
--- OUTSIDE RECORDS SUMMARY | 2024-07-12 22:18 | External Medical Summary ---
Author Name Unknown Address Unknown Organization [id number]:LABORATORY [facility] [address] [place] [id number] Laboratory Report Ordering Provider Test Date Status STEPHANIE MENENDEZ 03/29/2024 14:29:24 Final Observation Date Value Abnormality Reference (Units ) Status Hemoglobin 03/29/2024 14:29:24 14.3 14.0-16.8 (g/dL) Final Performing Location LABORATORY [place] [address] [place] [id number]
--- OUTSIDE RECORDS SUMMARY | 2024-07-12 22:18 | External Medical Summary | Summary of Care ---
Author Name Unknown Organization [facility] Address [address] [place] [address] Phone [phone] Care Team Providers Care Pet Walker Name Role Phone David Nicole MD Primary Care Provider [phone] Reason for Visit * Reason Comments Outpatient Testing Encounter Details Date Type Department Care Team (Late st Contact Info) Description 03/29/2024 2:20 PM EDT Laboratory Laboratory, [facility] [address] [place] [address] [facility] [address] [place] [address] Diabetic polyneuropathy associated with type 2 diabetes mellitus ([facility]); Chronic kidney disease, stage 3a ([facility]); Type 2 diabetes mellitus with hemoglobin A1c goal of less than 7.0% ([facility]) Allergies No known active allergiesdocumented as of this encounter (statuses as of 03/29/2024) Medications Medication Sig Dispensed Refills Start Date End Date Status aspirin enteric coated 81 MG TBECIndications:Joseph ication (HCC) Take 1 Tab by mouth daily. [...] 10/27/2023 Active Empagliflozin 25 MG Oral Tablet (Jardiance)Indication s:Type 2 diabetes mellitus with hemoglobin A1c goal of less than 7.0% (HCC) Take 1 Tablet by mouth in the morning. 90 Tablet 3 03/29/2024 Active documented as of this encounter (statuses as of 03/29/2024) Active Problems Problem Noted Date Diagnosed Date Depression with anxiety 09/27/2023 Chronic kidney disease, stage 3a 12/17/2020 Overview: Per CKD protocol ILD (interstitial lung disease) 11/03/2020 Flaccid hemiplegia 11/03/2020 Diabetic polyneuropathy asso ciated with type 2 diabetes mellitus 11/03/2020 Acquired absence of right great toe 12/05/2018 MEETA on CPAP 11/11/2015 Overview: CPAP 9-15 cwp C Cerebral AVM 09/02/2015 Type 2 diabetes mellitus wit h hemoglobin A1c goal of less than 8.0% 07/04/2014 Overview: ICD-10 update of inactive term HTN, goal below 130/80 07/04/2014 Dyslipidemia 07/04/2014 documented as of this encounter (statuses as of 03/29/2024) Resolved Problems Problem Noted Date Diagnosed Date Resolved Date Type 2 diabetes mellitus wit h stage 3a chronic kidney disease and hypertension 11/12/2020 09/26/2023 Overview: Per CKD protocol Recurrent major depressive disorder 02/29/2020 09/27/2023 Hypertension in stage 3 labor mediator carmita kidney disease due to type 2 [...] as of this encounter (statuses as of 03/29/2024) Immunizations Name Administration Dates Next Due Hepatitis B, 20+ yrs 06/21/2017,03/24/2017,12/18 Pneumococcal Polysaccharide PPV23 (Pneumovax) 10/02/2014 Seasonal Influenza, PF, 6 M & above, IM , (FluLaval or Fluzone) 03/20/2021,02/29/2020,07/13/2019,05/23,06/24/2017 TDAP (age 10 and older)(Boostrix) 07/04/2014 documented as of this encounter Social History Tobacco Use Types Packs/Day Years Used Date Smoking Tobacco: Never Smokeless Tobacco: Never Alcohol Use Standard Drinks/Week Comments No 0 [...] on file documented as of this encounter Functional Status Functional Status Response [...] No 03/02/2016 documented as of this encounter Plan of Treatment Pending Results Name Type Priority Associated Diagnoses Date /Time ALBUMIN / CREATININE RATIO, URINE Lab Routine Diabetic polyneuropathy associated with type 2 diabetes mellitus (HCC) 03/29/2024 2:29 PM EDT RENAL FUNCTION PANEL Lab Routine Chronic kidney disease, stage 3a ([facility]) 03/29/2024 2:29 PM EDT HEMOGLOBIN A1C Lab Routine Type 2 diabetes mellitus with hemoglobin A1c goal of less than 7.0% ([facility]) 03/29/2024 2:29 PM EDT Health Maintenance Due Date Last Done Comments Colonoscopy 2010 Fecal Occult Blood Test 2010 Sigmoidoscopy 2010 Pneumococcal Vaccine: Pediatrics (0 to 5 Years) and At-Risk Patients (6 to 64 Years) (2 of 2 - PCV) 10/03/2015 10/02/2014 Cologuard 07/09/2020 07/09/2017, 07/06/2017 Colorectal Cancer Screening 07/09/2020 Albumin/Creatinine Ratio 10/29/2021 021, 07/13/2019, 03/24/2017, Additional history exists CKD HGB USE SMARTSET 03542 10/30/202103/29, 10/30/2020, 10/30/2020, Additional history exists CKD PHOS USE SMARTSET 06347 01/28/2022 072 01/2021, 02/23/2020, 09/01/2018, Additional history exists Diabetic Eye Exam 03/20/2022 03/20/2021, , 01/30/2015, Additional history exists Influenza Vaccine (FLU shot) (#1) 2024 03/20/2021, 02/29/2020, 07/13/2019, Additional history exists GFR 03/29/2024 09/27/2023, 01/03, 10/30/2020, Additional history exists HbA1c 03/29/2024 09/27/2023, 01/03, 10/30/2020, Additional history exists DTap/Tdap Vaccines (2 - Td or Tdap) 07/04/2024 07/04/2014 B-12 09/26/2024 09/27/2023, 02/03, 09/01/2018, Additional history exists Depression Monitoring 03/29/2025 03/29/2024, [...] this encounter Medical Devices Implanted Type Area Concrete Bucket Hooker Device Identifier Shelf Expiration Date Model / Serial / Lot Ev3 Bailey 18 Liquid Embo System Implanted:Qty : 1 on 04/22/2016 by Laith Rosales MD at [place] [facility] [place] - Non Human N/A: Head [employer] 09/20/2018 [id number] / [id number] / [id number] Jamaal 18 Liquid Embo System Implanted:Qty : 1 on 04/22/2016 by Laith Rosales MD at [place] [facility] [place] Tissue - Non Human N/A: Head [employer] 09/20/2018 [id number] / [id number] / [id number] Ev3, Jamaal 34, Liquid Embolic Material, 1.5ml Implanted:Qty : 2 on 09/30/2015 by Laith Rosales MD at [place] [facility] [place] Left: Head 06/04/2018 [id number] / [id number] / [id number] Description:Left TEREZA Ev3, Bailey 18, Liquid Embolic Material, 1.5ml Implanted:Qty : 1 on 09/30/2015 by Laith Rosales MD at [place] [facility] [place] Left: Head 04/08/2018 [id number] / [id number] / [id number] Description:Left TEREZA Bailey 18, 1.5 Ml Ev3, Liquid Embolic Material Implanted:Qty : 1 on 10/30/2015 by Laith Rosales MD at [place] [facility] [place] Right: Head 04/08/2018 [id number] / [id number] / [id number] Description:TEREZA Bailey 18, 1.5 Ml Ev3, Liquid Embolic Material Implanted:Qty : 1 on 10/30/2015 by Laith Rosales MD at [place] [facility] [place] Right: Head [employer] 04/21/2018 [id number] / [id number] / [id number] Description:TEREZA Jamaal 18, 1.5 Ml Ev3, Liquid Embolic Material Implanted:Qty : 1 on 10/30/2015 by Laith Rosales MD at [place] [facility] [place] Right: Head [employer] 04/21/2018 [id number] / [id number] / [id number] Description:TEREZA [employer], Jamaal Ev3 18, 1.5 Ml, Liquid Embolic Material, Implanted:Qty : 1 on 03/02/2016 by Laith Rosales MD at [place] [facility] [place] Right: Head 09/09/2018 [id number] / [id number] / [id number] Description:TEREZA documented as of this encounter Procedures Procedure Name Priority Date/Time Associated Diagnosis Comments HGB Routine 03/29/2024 2:29 PM EDT Chronic kidney disease, stage 3a (HCC) documented in this encounter Results * HGB (03/29/2024 2:29 PM EDT) HGB 14.3 14.0 - 16.8 g/dL 03/29/2024 2:39 PM EDT [facility] Blood Venous blood specimen / Unknown Venipuncture / Unknown 03/29/2024 2:29 PM EDT 03/29/2024 2:29 PM EDT David Nicole MD LAB BLOOD ORDERAB LES LAB[facility]AT[facility] [address] [place] [address] documented in this encounter Visit Diagnoses Diagnosis Diabetic polyneuropathy associated with type 2 diabetes mellitus (HCC) Chronic kidney disease, stage 3a (HCC) Type 2 diabetes mellitus with hemoglobin A1c goal of less than 7.0% (HCC) documented in this encounter Advance Directives [...] and were consensually agreed upon. Care Teams Pet Walker Relationship Specialty Start Date End Date David Nicole MD [address] [facility] [place] [id number] PCP - General Family Medicine 09/27/23 documented as of this encounter
--- OUTSIDE RECORDS SUMMARY | 2024-07-12 22:18 | External Medical Summary ---
Author Name Unknown Address Unknown Organization [id number]:LABORATORY [facility] - [facility] [address] [facility] [address] Laboratory Report Ordering Provider Test Date Status STEPHANIE MENENDEZ 03/29/2024 14:29:24 Final Observation Date Value Abnormality Reference (Units ) Status BUN 03/29/2024 14:29:24 21 Above high normal 6-20 (mg/dL) Final Creatinine 03/29/2024 14:29:24 1.3 Above high normal 0.6-1.2 (mg/dL) Final Glomerular filtration rate/1.73 sq M.predicted [Volume Rate/Area] in Serum, Plasma or Blood by Creatinine-based formula (CKD-EPI) 03/29/2024 14:29:24 65 >=60 (mL/min) Final eGFR is calculated based on the CKD-EPI 2020 equation. Sodium 03/29/2024 14:29:24 130 Below low normal 135 -146 (mmol/L) Final Potassium 03/29/2024 14:29:24 4.9 3.5-5.1 (m mol/L) Final Cl 03/29/2024 14:29:24 94 Below low normal 98- 107 (mmol/L) Final CO2 03/29/2024 14:29:24 27 22-32 (mmo l/L) Final Anion gap 03/29/2024 14:29:24 9 7-15 (mmol /L) Final Glucose 03/29/2024 14:29:24 314 Above high normal 70 -120 (mg/dL) Final Calcium 03/29/2024 14:29:24 9.7 8.4-10.2 ( mg/dL) Final Albumin 03/29/2024 14:29:24 4.1 3.8-5.0 (g /dL) Final Phosphate 03/29/2024 14:29:24 3.9 2.5-4.8 (m g/dL) Final Performing Location [facility]ORY [facility] [address] [facility] [address]
--- OUTSIDE RECORDS SUMMARY | 2024-07-12 22:18 | External Medical Summary ---
Author Name Unknown Address Unknown Organization [id number]:LABORATORY [facility] - [address] [place] [address] Laboratory Report Ordering Provider Test Date Status STEPHANIE MENENDEZ 03/29/2024 14:29:24 Final Normal: <30 mg/g creatinine< br/>High: 30-300 mg/g creatinine
Very High: >300 mg/g creatinine
Nephrotic: >2200 mg/g creatinine Observation Date Value Abnormality Reference (Units ) Status Albumin, Urine 03/29/2024 14:29:24 7.00 (mg/dL) Final Creatinine, Urine 03/29/2024 14:29:24 25 (mg/dL) Final Albumin/Creatinine [Mass Ratio] in Urine 03/29/2024 14:29:24 280 Above high normal <30 (mg/g Creat) Final Performing Location LABORATORY [facility] - [address] [address]
[2024-07-13 07:33] LABS: Basophils # (auto) 0.03 K/uL (0.00-0.20); Basophils % (auto) 0.4 %; Eosinophils # (auto) 0.01 K/uL (0.00-0.50); Eosinophils % (auto) 0.1 %; Hematocrit (blood only) 40.8 % (42.0-52.0); Hemoglobin 13.7 g/dl (14.0-18.0); Immature Granulocytes # (auto) 0.05 K/uL (0.01-0.20); Immature Granulocytes % (auto) 0.6 %; Lymphocytes # (auto) 1.13 K/uL (1.20-3.40); Lymphocytes % (auto) 14.2 %; Mean Corpuscular Hemoglobin 26.7 pg (25.0-34.0); Mean Corpuscular Hgb Conc 33.6 g/dL (32.0-36.0); Mean Corpuscular Volume 79.5 fL (80.0-100.0); Mean Platelet Volume 9.1 fL (9.4-12.4); Monocytes # (auto) 0.68 K/uL (0.11-0.59); Monocytes % (auto) 8.5 %; Neutrophils # (auto) 6.08 K/uL (1.40-6.50); Neutrophils % (auto) 76.2 %; Platelet Count 177 K/uL (130-400); RDW Coefficient of Variation 13.8 % (11.5-14.5); RDW Standard Deviation 39.7 fL (36.4-46.3); Red Blood Count 5.13 M/uL (4.70-6.10); White Blood Count 7.98 K/ul (4.8-10.8)
[2024-07-13 07:38] LABS: Albumin Globulin Ratio 1.4 (0.9-2); Albumin Level 3.8 gm/dl (3.4-5.0); BUN Creatinine Ratio 30.3 (10-20); Bilirubin,Total 1.1 mg/dl (0.2-1.0); Calcium 8.9 mg/dl (8.6-10.3); Creatinine Clr Calc Pharmacy 54.2 ml/min; Globulin 2.8 gm/dl (2.5-4.0); Magnesium 2.4 mg/dl (1.7-2.4); Potassium 3.9 mmol/L (3.5-5.1); Total Protein 6.6 gm/dl (6.0-8.3)
--- NOTE | 2024-07-13 07:45 | Electrocardiogram Report ---
Test Reason : Blood Pressure : */* mmHG Vent. Rate : 98 BPM Atrial Rate : 98 BPM P-R Int : 174 ms QRS Dur : 86 ms QT Int : 356 ms P-R-T Axes : 47 48 73 degrees QTcB Int : 454 ms Poor data quality, interpretation may be adversely affected Normal sinus rhythm Normal ECG When compared with ECG of 01-Sep-2015 03:54, Premature ventricular complexes are no longer Present Confirmed by Walter Kang ([id number]) on 07/13/2024 7:44:54 AM Referred By: REFERRED SELF Confirmed By: Walter Kang
[2024-07-13 09:00] LABS: Estimated Average Glucose 318 mg/dl; Hemoglobin A1C 12.7 % (4.5-5.6)
[2024-07-13] MEDS: ACETAMINOPHEN 325 MG TAB PO PRN (09:12)
[2024-07-13] MEDS: GABAPENTIN 100 MG CAP PO ONE (12:24)
--- NOTE | 2024-07-13 15:08 | Hospitalist Progress Note ---
Date of Service July 13, 2024 Assessment & Plan (1) Breakthrough seizure: (2) AVM (arteriovenous malformation): (3) Metabolic acidosis: Plan: 59-year-old male with history of AVM, seizure, diabetes type 2, CKD stage III, interstitial lung disease, obstructive sleep apnea presenting with breakthrough seizures since 1 day ago PR[employer]. Patient has been noticing left-sided leg weakness for few months, gradually progressive, attributed to his right AVM per patient's stepfather. He is being managed for the following: Breakthrough seizure AVM History of noncompliance Not on any antiseizure medications at home, Patient reports he was on seizure medication in the past, appears noncompliant, lost to follow-up with his previous neurology. 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 Brain MRI can't be done safely in this patient give CT and CTA head finding per radiology. EEG ordered, read pending. s/p loading dose Keppra at Presentation, continue with 500 mg twice a day Keppra. Neurology consulted, await further recommendation. Seizure precaution.Monitor and replete electrolytes. Patient will need to maintain follow-up with neurology and medication compliance upon discharge. Metabolic acidosis with high anion gap pH 7.3, CO2 30, pO2 71, bicarb 16 , lactic acid normal, BSG 201, alcohol negat liam at presentation. Admitting team discussed with utilities manager Dr. Gagnon, likely secondary to seizure status post IV fluid with bicarb, improving. Labs in AM. Rhinovirus URTI: Continue droplet precaution, continue supportive management, patient on room air. LUTS obstructive symptoms: started tamsulosin, if no improvement consider uro as inpt or OP. Likely chronic neuropathic pain x LLE: start gabapentin, uptitrate as appropriate. Other chronic medical conditions: Continue with/resume home meds as and when able Uncontrolled diabetes: Patient noncompliant with home medication, he is not taking Jardiance. A1c of 12.7. adult educator consult. Patient will need insulin, and resuming Jardiance at the time of discharge with close follow-up with diabetic clinic upon discharge. Sliding scale insulin while inpatient. CKD stage III: Baseline unknown, creatinine appears to be around 1.4-1.5 so far, which might be his baseline. Continue to follow labs. Obstructive sleep apnea/Interstitial lung disease: Patient noncompliant with BPAP. continue with BPAP as able. DVT prophylaxis: SCDs CODE STATUS: Full code Disposition: PT/OT, CM to assist with DC planning. Admission and Anticipated Discharge Date Admission Date: July 12, 2024 Subjective Patient was seen and examined at bedside. Patient was lying in bed, on room air, appears to be having neuropathic pain LLE. Patient complaints improving weakness of left limbs, continues to feel numb and tingly and painful LLE. Per RN, no new seizures after the ones witnessed in the ED. Will resume diet that patient is back to his baseline mentation. Patient denies sore throat/cough/chest pain. Patient's stepfather Galen Weiss was present at bedside who was also updated on plan of care. Patient appears to have followed up with [facility] salvador many years ago, he was on some seizure medications at that time, he stopped taking medications after some time by himself, he lost to follow-up with neurology after that. He appears to be noncompliant with his medications per patient's stepfather at bedside. Physical Exam Physical Exam: General- oriented x 3, not in distress, speaks in sentences with no effort or accessory muscle use Appears weak Head- atraumatic Eyes- PERRL, EOMI, anicteric ENT- oropharynx clear Neck- supple, no JVD, no adenopathy, no thyromegaly; carotids +2/2, no bruits appreciated Lungs- clear to auscultation bilaterally, no rales/wheezes Heart- normal rate, regular rhythm; no murmur, no gallop, no rub appreciated Abdomen- normal bowel sounds, nondistended, soft, nontender, no masses or hepatosplenomegaly Extremities- no pretibial edema, no calf tenderness; peripheral pulses intact Right foot-absent great toe Neuro- CN 2-12 grossly intact; motor 4/5 Lt limbs and 5/5 right limbs;sensation 100% on all extremities Skin- warm & dry Results & Data Results & Data Vital Signs (Past 12 Hours) Vital Signs Temp Pulse Pulse Resp BP Pulse Ox O2 Del Method 07/13/24 11:41 36.4 C L 85 18 112/71 95 Room Air 07/13/24 11:39 Room Air 07/13/24 07:48 36.8 C 82 16 110/70 96 Room Air 07/13/24 05:31 66 07/13/24 03:04 36.7 C 92 H 16 109/72 96 Room Air
[2024-07-13] MEDS: TAMSULOSIN HCL 0.4 MG CAP PO ONE (16:17)
[2024-07-13] MEDS: GABAPENTIN 100 MG CAP PO SCH (21:06)
[2024-07-14 06:06] LABS: Hematocrit (blood only) 39.6 % (42.0-52.0); Hemoglobin 13.4 g/dl (14.0-18.0); Mean Corpuscular Hemoglobin 27.2 pg (25.0-34.0); Mean Corpuscular Hgb Conc 33.8 g/dL (32.0-36.0); Mean Corpuscular Volume 80.5 fL (80.0-100.0); Platelet Count 148 K/uL (130-400); RDW Coefficient of Variation 13.5 % (11.5-14.5); RDW Standard Deviation 39.3 fL (36.4-46.3); Red Blood Count 4.92 M/uL (4.70-6.10)
[2024-07-14 06:27] LABS: BUN Creatinine Ratio 30.2 (10-20); Calcium 8.9 mg/dl (8.6-10.3); Creatinine Clr Calc Pharmacy 63.8 ml/min; Magnesium 2.4 mg/dl (1.7-2.4); Phosphorus 3.6 mg/dl (2.5-4.9); Potassium 3.4 mmol/L (3.5-5.1)
[2024-07-14] MEDS: POTASSIUM CHLORIDE CRTAB 20 MEQ TABCR PO STA (09:28)
[2024-07-14] MEDS: TAMSULOSIN HCL 0.4 MG CAP PO SCH (09:29)
--- NOTE | 2024-07-14 14:28 | Discharge Summary ---
Date of Service July 14, 2024 Admission HPI Per Admitting Provider 59-year-old male with history of AVM, seizure, diabetes type 2, CKD stage III, interstitial lung disease, obstructive sleep apnea presenting with breakthrough seizures since yesterday. History obtained from patient's stepfather Sriram over the phone, permission obtained from patient who was trying to answer questions but was a poor historian. As per his stepfather, patient has been having more left-sided leg weakness lately. Leg weakness has been attributed to his right sided AVM. Weakness has progressed to the point that the patient fell twice on Wednesday as his leg gave out. Yesterday, patient while in bed was noted to have stiffening of the whole body, arms straightened up, and was shaking all of his extremities. This lasted for a few minutes. Patient was staring in space while the episode was occurring. He was tired, weak after the incident. Since that episode, patient was apparently noted to have multiple episodes, around 20 of generalized stiffening, and slurring of words. At the ER, patient was also noted to have 1 episode of generalized shaking which lasted for a few seconds. CT head showed a 5 cm area of high density in the right choroid plexus. CT angiogram head and neck showing mild stenosis of the distal CCA and proximal right ICA. On my exam, patient was seen resting in bed, sleeping but easily awakened, appears tired but trying to answer some questions. He was not oriented to place, but oriented to person. Denies headache, dizziness, chest pain, shortness of breath abdominal pain, focal weakness or numbness Admission Exam Per Admitting Provider General- oriented x 1-2, not in distress, speaks in sentences with no effort or accessory muscle use Appears weak Head- atraumatic Eyes- PERRL, EOMI, anicteric ENT- oropharynx clear Neck- supple, no JVD, no adenopathy, no thyromegaly; carotids +2/2, no bruits appreciated Lungs- clear to auscultation bilaterally, no rales/wheezes Heart- normal rate, regular rhythm; no murmur, no gallop, no rub appreciated Abdomen- normal bowel sounds, nondistended, soft, nontender, no masses or hepatosplenomegaly Extremities- no pretibial edema, no calf tenderness; peripheral pulses intact Right foot-absent great toe Neuro- Somewhat drowsy, oriented x 1-2; CN 2-12 grossly intact; motor 5/5 bilaterally;sensation 100% on all extremities; no other gross focal neurologic deficits Skin- warm & dry Principal Diagnosis Breakthrough seizure AVM History of noncompliance Rhinovirus URTI Metabolic acidosis with high anion gap, resolved Discharge Exam General- oriented x 3, not in distress, speaks in sentences with no effort or accessory muscle use Appears weak Head- atraumatic Eyes- PERRL, EOMI, anicteric ENT- oropharynx clear Neck- supple, no JVD, no adenopathy, no thyromegaly; carotids +2/2, no bruits appreciated Lungs- clear to auscultation bilaterally, no rales/wheezes Heart- normal rate, regular rhythm; no murmur, no gallop, no rub appreciated Abdomen- normal bowel sounds, nondistended, soft, nontender, no masses or hepatosplenomegaly Extremities- no pretibial edema, no calf tenderness; peripheral pulses intact Right foot-absent great toe Neuro- CN 2-12 grossly intact; motor 4/5 Lt limbs and 5/5 right limbs;sensation 100% on all extremities Skin- warm & dry Discharge Data Allergies Allergy/AdvReac Type Severity Reaction Status Date / Time No Known Drug Allergies Allergy Unknown DENIES Verified 09/01/23 07:03 ALLERGIES Consultations 07/12/24 17:25 ED Decision to Admit Stat 07/12/24 19:55 Consult Neurology Routine 07/12/24 20:10 HIM [Consult Health Information Management] Routine Ordered Studies 07/12/24 13:49 CT head/brain wo con Stat 07/12/24 15:12 CTA head w con [CT angio head w con] Stat CTA neck with con [CT angio neck with con] Stat Hospital Course (1) Breakthrough seizure: (2) AVM (arteriovenous malformation): (3) Metabolic acidosis: 59-year-old male with history of AVM, seizure, diabetes type 2, CKD stage III, interstitial lung disease, obstructive sleep apnea presenting with breakthrough seizures since 1 day ago [employer]. Patient has been noticing left-sided leg weakness for few months, gradually progressive, attributed to his right AVM per patient's stepfather. He is being managed for the following: Breakthrough seizure AVM History of noncompliance Not on any antiseizure medications at home, Patient reports he was on seizure medication in the past, appears noncompliant, lost to follow-up with his previous neurology. 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 Brain MRI can't be done safely in this patient give CT and CTA head finding per radiology. EEG ordered, read pending. s/p loading dose Keppra at presentation, continue with 500 mg twice a day Keppra. Neurology consulted, d/w neurology 07/14 recommends Transfer to tertiary [facility] for neurosurgery evaluation. Seizure precaution.Monitor and replete electrolytes. No new seizures after the ones noted in ED presentation. [place] [facility] spoke with transfer line and discussed the case with neurosurgery on-call, patient has been accepted, paperwork done, patient awaiting transfer to [facility] Patient and his stepfather are aware. Patient will need to maintain follow-up with neurology and medication compliance upon discharge. Metabolic acidosis with high anion gap: Noted at presentation, likely secondary to seizure. Status post IV fluid with bicarb. Resolved. Rhinovirus URTI: Continue droplet precaution, continue supportive management, patient on room air. LUTS obstructive symptoms: started tamsulosin, straight cath prn, usg bladder q6h or prn, if no improvement consider uro as inpt or OP. Likely chronic neuropathic pain x LLE: start gabapentin, uptitrate as appropriate.pt reports improvement in LLE numb/tingling pain today. Other chronic medical conditions: Continue with/resume home meds as and when able Uncontrolled diabetes: Patient noncompliant with home medication, he is not taking Jardiance. A1c of 12.7. wellness educator consult. Patient will need insulin, and resuming Jardiance at the time of discharge with close follow-up with diabetic clinic upon discharge. Sliding scale insulin while inpatient. CKD stage III: Baseline unknown, creatinine appears to be around 1.4-1.5 so far, which might be his baseline. Continue to follow labs. Obstructive sleep apnea/Interstitial lung disease: Patient noncompliant with BPAP. continue with BPAP as able. DVT prophylaxis: SCDs CODE STATUS: Full code Disposition: awaiting transfer to [facility] Paperwork was done. Home Health Attestation I certify that this patient is under my care and that I, or a physicians oral surgery assistant working with me, had a face to-face encounter that meets the home health [id number] encounter requirements with this patient. The encounter with the patient was in whole, or in part, for the following medical condition, which is the primary reason for home health care (list medical condition): I certify that, based on my findings, the following services are medically necessary home health services: My clinical findings support the need for the above services because: Further, I certify that my clinical findings support that this patient is homebound (i.e. absences from home require considerable and taxing effort and are for medical reasons or rastafari services or infrequently or of short duration when for other reasons) because: Certification for Home Health Services: Based on the above findings, I certify that this patient is confined to the home and needs intermittent fci care, physical therapy and/or speech therapy or continues to need occupational therapy. The patient is under my care, and I have initiated the establishment of the plan of care. This patient will be followed by a physician who will periodically review the plan of care. Total Time Total Time Spent Total Time Spent (In Minutes): 55 Discharge Plan Discharge Items Patient Disposition: Transfer Acute Care Hospital Reason For Visit: BREAKTHROUGH SEIZURE Discharge Diagnosis: Breakthrough seizure AVM History of noncompliance Rhinovirus URTI Metabolic acidosis with high anion gap, resolved Activity: As commented below Activity Comment: As per tertiary [facility] recommendation. Non-emergency contact: Primary Care Provider Call non-emergency contact if: you have any medication questions Follow-up/Referrals: David Nicole MD [Primary Care Provider] - Diet: Carb Consistent or DM2 Diet Texture: Dental soft (bite-sized) Addtl Attending Provider Instructions: You are being discharged to [facility] for neurosurgical evaluation. Your prior to arrival home medication will be continued as it is in the med rec, your current inpatient medications will be copied and pasted here for the sake of comparison at [facility]. Current Inpatient Medications Acetaminophen (Acetaminophen 325 Mg Tab) 650 mg PO Q4H PRN PRN Reason: Pain or Fever Stop: 08/11/24 19:54 Last Admin: 07/13/24 09:12 Dose: 650 mg Dextrose (Dextrose 50% 50 Ml Syringe) 25 - 50 ml IV UD PRN; Protocol PRN Reason: Hypoglycemia Protocol Stop: 08/11/24 19:54 Gabapentin (Gabapentin 100 Mg Cap) 100 mg PO TID [facility] Stop: 08/12/24 20:59 Last Admin: 07/14/24 09:29 Dose: 100 mg Glucagon (Glucagon For Inj 1 Mg Vial) 1 mg SQ UD PRN; Protocol PRN Reason: Hypoglycemia Protocol Stop: 08/11/24 19:54 Glucose (Glucose 40% Gel 15 Gm Tube) 15 - 30 gm PO UD PRN; Protocol PRN Reason: Hypoglycemia Protocol Stop: 08/11/24 19:54 Glucose (Glucose 10 Tab/Tube) 4 - 8 tab PO UD PRN; Protocol PRN Reason: Hypoglycemia Protocol Stop: 08/11/24 19:54 Insulin Aspart (Insulin Aspart Per Unit Charge) 0 units SC ACHS MARIANO Stop: 08/11/24 20:59 Last Admin: 07/14/24 13:02 Dose: 4 units Levetiracetam (Levetiracetam 500 Mg/5 Ml Vial) 500 mg IV Q12H MARIANO Stop: 08/11/24 18:59 Last Admin: 07/14/24 06:28 Dose: 500 mg Lorazepam (Lorazepam 2 Mg/1 Ml Vial) 1 mg IV Q4H PRN PRN Reason: seizure Stop: 08/11/24 19:54 Miscellaneous (Carbohydrates For Hypoglycemia ) 15 - 30 gm PO UD PRN PRN Reason: Hypoglycemia Protocol Stop: 08/11/24 19:54 Tamsulosin HCl (Tamsulosin Hcl 0.4 Mg Cap) 0.4 mg PO QAM [facility] Stop: 08/13/24 08:59 Last Admin: 07/14/24 09:29 Dose: 0.4 mg Pending Studies at Discharge: No Stand-Alone Forms: [facility] Skilled Items Patient informed of condition?: Yes DNR: No Discharge Level of Care: Other Communicable Disease: No Discharge Prognosis: Other Lines: Peripheral IV Urinary Catheter: No Medications and DC Order Prescriptions: Continued aspirin 81 mg Capsule 81 mg PO QPM Jardiance 25 mg tablet 25 mg PO DAILY Discharge Orders: Discharge Order (Routine); Ordered 07/14/24 Ordered By: Aries Lewis Admission Data Admit Date/Time: 07/12/24 17:57 Attending Provider: Aries Lewis Admit Provider: Bereket Cole Primary Care Provider: Bonnie,David J. Other Providers: Bereket Cole; Purvi Willis; Drew Otero; Purvi Molina; Nixon Saunders; Balbir Yap; Christiano Mares; David Gong; Wilma Roth; Raheem Carlisle; Davi Pavon; Maurice Lopez; Mustapha Brambila; Marisela Bell; Alessandra Pascal; David Melendez; Bisi Miranda
--- NOTE | 2024-07-14 14:56 | Neurology Consultation ---
Date of Consultation July 14, 2024 Assessment & Plan (1) Seizure: Recommend continue Keppra BID Recommend EEG Provide seizure precautions Utilize benzodiazepines emergently for any breakthrough clinical seizure like activity Continue frequent neurological assessments Obtain stat CT brain without contrast for any acute neurological decline Continue to monitor/control blood pressure & blood glucose Continue to monitor telemetry closely Continue to monitor renal and hepatic function, keep euvolemic OK from neurology perspective for VTE prophylaxis PT/OT/SLT to eval and treat No Driving Per [place] state law following seizure (2) AVM (arteriovenous malformation): Hx AVM in Right Parietal lobe Recommend NSG/endovascular consultation (3) Stroke-like symptom: Reports ongoing LLE weakness Possibly secondary to intracranial pathology surrounding AVM Unable to obtain MRI Recommend DAPT for at least 3 weeks Recommend high dose statin therapy indefinitely if tolerated Telehealth Consultation Telehealth Information Telehealth Information: I performed this visit using a real-time telehealth connection between my location and the patients location ([facility]). After connecting through interactive tele-video, patient was identified by name and date of and/or wristband check.Patient (or authorized healthcare goodwill representative) was informed that this was a telemedicine visit and it was being conducted confidentially over secure lines. My office door was closed and no one else was present in the room with me.Patient (or authorized healthcare goodwill representative) provided consent to proceed with the visit, expressed an understanding of privacy and security of the telemedicine visit, and gave permission to have a hospital goodwill representative in the room in order to assist with the visit and to conduct portions of the visit, as needed. I informed the patient (or authorized healthcare goodwill representative) that I reviewed their record a nd presented the opportunity for them to ask any questions regarding the visit today. The patient agreed to participate. History of Present Illness Reason for Consultation: Seizure Requesting Physician: Dr. Lewis Attending Physician: Aries Lewis MD History of Present Illness 59yo male with known hx of AVM seizure DM, CKD MEETA presented following episode of seizure. He was reportedly on anti seizure medicine in the past but was not recently taking antiseizure meds prior to admission. He has been initiated on Keppra. He reports ongoing LLE weakness, his family believes may be secondary to his known AVM. He has undergone CT brain without contrast, personally reviewed, revealing no overt evidence of hemorrhage. CT angiographic studies of head and neck, also personally reviewed, reveal no overt evidence of large vessel occlusion or significant/flow limiting stenosis. There is large area approx 5cm AVM right parietal lobes with evidence of coiling. He is unable to undergo MRI. I have performed televideo consultation. He is alert & oriented; able to answer all questions appropriately, name objects on televideo monitor, repeat phrases and perform complex/embedded commands without deficit. Noted LLE weakness. He denies SI/HI. He is agreeable to continue Keppra and follow up outpatient Neurology. Family at bedside seeking NSG/endovascular consultation at [facility]. All questions answered. Allergies Allergy/AdvReac Type Severity Reaction Status Date / Time No Known Drug Allergies Allergy Unknown DENIES Verified 09/01/23 07:03 ALLERGIES Home Medications Medication Instructions Recorded Confirmed Type aspirin 81 mg capsule 81 mg PO QPM 08/30/23 07/12/24 History empagliflozin 25 mg tablet 25 mg PO DAILY 07/12/24 07/12/24 History (Jardiance) Patient History Medical History Hx of diabetic foot ulcer Gait instability uses cane and walker "due to mobility issues from my AVM" History of seizure "only happened once, this is when they found out he had an AVM" Shakes "due to his AVM" Sleep apnea does not use his device anymore AVM (arteriovenous malformation) brain does not f/u w/specialist Neuropathy Anxiety Diabetes mellitus, type 2 Dyslipidemia Hypertension Surgical History Hx of repair of right rotator cuff History of amputation of toe rt great toe History of bronchoscopy Hx of blepharoplasty bilateral Social History Smoking Status: Never smoker Second Hand Exposure: No; Do You Dip or Chew Tobacco: No; Hx Alcohol Use: Yes Alcohol type: beer Hx Substance Use: No Preferred Language: Jamaican Communication Ability: Effective Parent Educator Required: No Beliefs That Will Affect Care: None Current Living Situation: Family Current Living Situation Comment: step-son Galen Feels Safe at Home: Yes Assistive Devices: Cane and Walker Physical Exam Neurological Examination: Mental Status: Awake and alert. Oriented to person, place, and time. Fluency naming repetition and comprehension appear grossly intact. Affect remains appropriate. CN testing: I: Denies changes in ability to smell II:Reports no changes in visual acuity III/IV/: No evidence of gaze preference, hippus, nystagmus or roving eye movements V: Facial sensation reportedly grossly intact to light touch bilaterally VII: Facial movements appear without evidence of asymmetry VIII: Hearing appears grossly intact to loud voice bilaterally IX/X: Palate appears to elevate symmetrically XI: Shoulder shrug appears symmetric/ grossly intact bilaterally XII: Tongue protrudes midline without evidence of biting Motor exam: Strength appears grossly intact/symmetric in all extremities Sensory: Sensation is reportedly grossly intact throughout Coordination: Deferred Reflexes: Deferred Gait: Deferred Results & Data Vital Signs (Past 12 Hours) Vital Signs Temp Pulse Pulse Resp BP Pulse Ox O2 Del Method 07/14/24 11:10 36.3 C L 83 20 141/74 H 97 Room Air 07/14/24 07:48 36.6 C 85 20 132/78 97 Room Air 07/14/24 07:14 79 Laboratory Results Abnormal lab results 07/13/24 07/13/24 07/14/24 Range/Units 16:54 20:48 05:48 Hgb 13.4 L (14.0-18.0) g/dl Hct 39.6 L (42.0-52.0) % MPV 9.0 L (9.4-12.4) fL Potassium 3.4 L (3.5-5.1) mmol/L BUN 39 H (6-23) mg/dl BUN/Creatinine Ratio 30.2 H (10-20) Glucose 151 H (70-99(Fasting)) mg/dl POC Glucose 176 H 211 H (70-99) mg/dl 07/14/24 07/14/24 Range/Units 08:05 11:54 Hgb (14.0-18.0) g/dl Hct (42.0-52.0) % MPV (9.4-12.4) fL Potassium (3.5-5.1) mmol/L BUN (6-23) mg/dl BUN/Creatinine Ratio (10-20) Glucose (70-99(Fasting)) mg/dl POC Glucose 154 H 263 H (70-99) mg/dl Medications Administered Home Medications Medication Instructions Recorded Confirmed Last Taken aspirin 81 mg capsule 81 mg PO QPM 08/30/23 07/12/24 07/11/24 empagliflozin 25 mg tablet 25 mg PO DAILY 07/12/24 07/12/24 Unknown (Jardiance) Active Medications Generic Name Dose Route Start Last Admin Trade Name Adrian PRN Reason Stop Dose Admin Acetaminophen 650 mg 07/12/24 19:55 07/13/24 09:12 Acetaminophen 325 Mg Tab PO 08/11/24 19:54 650 mg Q4H PRN Administration Pain or Fever Gabapentin 100 mg 07/13/24 21:00 07/14/24 09:29 Gabapentin 100 Mg Cap PO 08/12/24 20:59 100 mg TID MARIANO Administration Insulin Aspart 0 units 07/12/24 21:00 07/14/24 13:02 Insulin Aspart Per Unit Charge SC 08/11/24 20:59 4 units ACHS MARIANO Administration Levetiracetam 500 mg 07/12/24 19:00 07/14/24 06:28 Levetiracetam 500 Mg/5 Ml Vial IV 08/11/24 18:59 500 mg Q12H MARIANO Administration Tamsulosin HCl 0.4 mg 07/14/24 09:00 07/14/24 09:29 Tamsulosin Hcl 0.4 Mg Cap PO 08/13/24 08:59 0.4 mg QAM MARIANO Administration
== END 2024-07-14 17:02 | disposition short-term general hospital (02) | DRG 100 ==
LOC: ED 13:35 → EDINP 17:57 → SUATTDRO 17:57 → 2N 19:55

== ENCOUNTER 2025-03-12 16:11 | Inpatient (IN) ==
[2025-03-12 17:06] LABS: Hematocrit (blood only) 35.9 % (42.0-52.0); Hemoglobin 12.0 g/dl (14.0-18.0); Immature Granulocytes # (auto) 0.01 K/uL (0.01-0.20); Immature Granulocytes % (auto) 0.2 %; Mean Corpuscular Hemoglobin 26.0 pg (25.0-34.0); Mean Corpuscular Volume 77.9 fL (80.0-100.0); Platelet Count 177 K/uL (130-400); RDW Standard Deviation 39.6 fL (36.4-46.3); Red Blood Count 4.61 M/uL (4.70-6.10); White Blood Count 4.59 K/ul (4.8-10.8)
[2025-03-12 17:43] LABS: Alanine Aminotransferase 12 U/L (7-52); Albumin Globulin Ratio 1.0 (0.9-2); Alkaline Phosphatase 102 U/L (34-104); Anion Gap 7 (3-11); Bilirubin,Total 0.7 mg/dl (0.2-1.0); Blood Urea Nitrogen 25 mg/dl (6-23); Calcium 8.9 mg/dl (8.6-10.3); Carbon Dioxide 26 mmol/L (21-32); Chloride 92 mmol/L (98-107); Globulin 3.6 gm/dl (2.5-4.0); Glucose 457 mg/dl (70-99(Fasting)); Potassium 4.8 mmol/L (3.5-5.1); Sodium 125 mmol/L (136-145); Total Protein 7.3 gm/dl (6.0-8.3)
--- NOTE | 2025-03-12 19:00 | XRay Report ---
Exam: X-ray right toes limited to the right fourth toe. Reason for exam: Fourth digit toe ulceration. Previous studies: None FINDINGS: There is marked soft tissue swelling. There is active bone destruction of the distal phalanx consistent with acute osteomyelitis and overlying soft tissue ulceration. The middle and proximal phalanges appear intact at this time. IMPRESSION: Extensive acute osteomyelitis involving the distal phalanx of the right fourth toe. Electronically signed by Nixon Art 03-12-2025 6:59 PM
[2025-03-12] MEDS ORDERED: VANCOMYCIN CONSULT ACTIVE PRN (19:24)
[2025-03-12] MEDS: PIPERACILLIN/TAZOBACTAM 4.5 GM/100 ML BAG IV ONE (20:14)
[2025-03-12] MEDS: SODIUM CHLORIDE 0.9% 1,000 ML IV ONE ×2 (20:52→22:52)
[2025-03-12] MEDS: VANCOMYCIN HCL 1,750 MG in SODIUM CHLORIDE 0.9% 500 ML IV ONE (20:52)
--- NOTE | 2025-03-12 21:34 | History & Physical Report ---
Date of Service March 12, 2025 Assessment & Plan (1) Acute hyponatremia: (2) Diabetic peripheral neuropathy associated with type 2 diabetes mellitus: (3) Osteomyelitis: Plan 59 y/o male with PMH of HTN, DM2, anxiety/depression, seizures here due to acute right fourth toe osteomyelitis #Osteomyelitis - right distal phalanx of the fourth toe - Patient with history of uncontrolled DM. Patient with right 4th toe ulceration. Noticed toe going black 2 days ago. hx of osteomyelitis s/p amputation on right toe - Foot Xray - Extensive acute osteomyelitis - No leukocytosis, Hgb low at 12.0, sodium 125 , Cr 1.15 - continue Vancomycin IV and Zosyn IV - Blood culture ordered - Podiatry consulted - NPO at midnight - CBC, CMP, PT/ INR am #Hypotonic hyponatremia? - Pseudohyponatremia - Sodium on admission- 125, corrected sodium- 135 - Serum/urine osmolality ordered - s/p 1 L NSS, will give another bolus - continue hydration LR 125 ml/hr - Labs am DM 2 - Last A1C: 13.9 on 12/27. sugars on 400 on admission. - Home regimen: Lantus 23 units daily - Previously on Jardiance- pt non complaint - SSI CF 50 CR 20 - Pharmacy consulted #Seizures - continue Keppra 1,00 BID and gabapentin - past history of right cerebral AVM HTN - continue losartan and amlodipine - On aspirin, will held for now for possible surgical intervention History of CKD creatinine baseline around 1.3 -Creatinine at baseline on admission Hyperlipidemia Continue statin Anxiety continue Lexapro DVT prophylaxis: SCDs Disposition: Medsurge History of Present Illness Primary Care Provider: David Nicole MD 59 y/o male with PMH of HTN, DM2, anxiety/depression, seizures here due to acute right fourth toe osteomyelitis. Patient have history of diabetes, on Lantus 23units. Patient states he is complaint to medications. He noticed the toe turned black two days ago. Denied any pain to the toe. Denied any trauma. Denied any fevers, any chills. Denied any chest pain, SOB, palpitations. Denied any abdominal pain, nausea or vomiting. He was discharge from hospital on 12/2024 to SNF due to seizures. Denied any recent seizures. Ed course: placed on IV zosyn/ IV vancomycin. 1 L NSS Allergies Allergy/AdvReac Type Severity Reaction Status Date / Time No Known Allergies Allergy Verified 03/12/25 19:46 Home Medications Medication Instructions Recorded Confirmed Type aspirin 81 mg capsule 81 mg PO DAILY 08/30/23 03/12/25 History acetaminophen 325 mg tablet 650 mg PO DAILY 12/08/24 03/12/25 History amlodipine 5 mg tablet 5 mg PO DAILY 12/08/24 03/12/25 History calcium carbonate 500 mg PO DAILY 12/08/24 03/12/25 History docusate sodium 50 mg capsule 50 mg PO DAILY 12/08/24 03/12/25 History escitalopram oxalate 10 mg tablet 10 mg PO DAILY 12/08/24 03/12/25 History (Lexapro) levetiracetam 500 mg tablet 1,000 mg PO BID 12/08/24 03/12/25 History (Keppra) losartan 25 mg tablet 25 mg PO DAILY 12/08/24 03/12/25 History nortriptyline 10 mg capsule 10 mg PO HS 12/08/24 03/12/25 History sennosides 8.6 mg capsule (senna) 8.6 mg PO HS 12/08/24 03/12/25 History trazodone 100 mg tablet 100 mg PO HS 12/08/24 03/12/25 History ferrous gluconate 324 mg (38 mg 324 mg PO BIDM #30 tabs 12/15/24 03/12/25 Rx iron) tablet insulin glargine 100 unit/mL 28 unit (0.28 mL) subcut QAM #10 mL 12/15/24 03/12/25 Rx subcutaneous solution (Lantus U-100 Insulin) ascorbic acid (vitamin C) 500 mg 500 mg PO BID 03/12/25 03/12/25 History tablet (Vitamin C) atorvastatin 80 mg tablet 80 mg PO HS 03/12/25 03/12/25 History diclofenac sodium 1 % topical gel 4 g topical TID PRN Pain 03/12/25 03/12/25 History gabapentin 300 mg capsule 300 mg PO TID 03/12/25 03/12/25 History zinc acetate 50 mg (zinc) capsule 50 mg PO DAILY 03/12/25 03/12/25 History Past Med/Surg History Problem List (Updated 03/12/25 @ 22:18 by Clint Allen MD) Osteomyelitis Axillary abscess Acute hyponatremia (Acute) Acute hyperglycemia (Acute) Seizure (Acute) Stroke-like symptom Acute confusion (Acute) Seizure (Acute) Metabolic acidosis Breakthrough seizure Tinea pedis Status post partial amputation of foot Loss of sensation History of diabetic ulcer of foot Diabetic peripheral neuropathy associated with type 2 diabetes mellitus Acute renal failure (ARF) (Acute) H/O repair of right rotator cuff (Chronic) Amputated toe (Chronic) "right great toe due to osteomyelitis" Dyslipidemia (Chronic) HTN (hypertension) (Chronic) Medical History Hx of diabetic foot ulcer Gait instability uses cane and walker "due to mobility issues from my AVM" History of seizure "only happened once, this is when they found out he had an AVM" Shakes "due to his AVM" Sleep apnea does not use his device anymore AVM (arteriovenous malformation) brain does not f/u w/specialist Neuropathy Anxiety Diabetes mellitus, type 2 Dyslipidemia Hypertension Surgical History Hx of repair of right rotator cuff History of amputation of toe rt great toe History of bronchoscopy Hx of blepharoplasty bilateral Social History Smoking Status: Never smoker Second Hand Exposure: No; Do You Dip or Chew Tobacco: No; Hx Alcohol Use: Yes Alcohol type: beer Hx Substance Use: No Preferred Language: Polish Communication Ability: Effective Sugar Presser Required: No Beliefs That Will Affect Care: None Current Living Situation: Family Current Living Situation Comment: pt lives with step dad Other Information That Helps Us Care for You: No Feels Safe at Home: Yes Safety Concerns: Feels Safe At This Time Assistive Devices: Glasses Review of Systems Review of Systems: as per hpi Physical Exam Constitutional: well developed and well nourished; no acute distress Eyes: PERRL, conjunctivae normal, anicteric sclerae Respiratory: normal respiratory effort, lungs clear to auscultation Cardiovascular: RRR, no murmur, no edema Gastrointestinal (Abdomen): normal bowel sounds, soft, nontender, no hepatosplenomegaly Musculoskeletal: Extremities: extremities normal to inspection, strength 5/5 throughout and + foot abnormality (right fourth toe w ulceration, gangrenous) Right Results & Data Results & Data Vital Signs (Past 12 Hours) Vital Signs Temp Pulse Resp BP Pulse Ox O2 Del Method 03/12/25 16:14 36.7 C 88 18 121/73 96 Room Air Code Status & VTE Plan VTE Prophylaxis Plan VTE Prophylaxis will be ordered: Yes Supervising Physician Co-Signing Physician Notes Attending addendum: I have physically seen this patient, have supervised the medical residents activities, and agree with the H&P unless as otherwise noted. Assessment and Plan: The patient is a 59-year-old male with past medical history including hypertension, uncontrolled diabetes mellitus, anxiety/depression, seizures, diabetic peripheral neuropathy, history of acute renal failure, history of amputated toe, dyslipidemia, and hypertension. He presents to the emergency department with complaint of a discolored right fourth toe that he noted turning black 2 days ago Acute osteomyelitis right fourth toe distal phalanx- X-ray of right foot shows extensive osteomyelitis involving the right fourth toe distal phalanx Continue vancomycin IV and Zosyn IV begun in the ED Follow blood culture and sensitivity N.p.o. after midnight Serial CBC with differential, CMP and coags in the a.m. Consult podiatry Uncontrolled diabetes mellitus- Most recent hemoglobin A1c on 12/27 was 13.9 Glucose on admission 457 Continue Lantus 23 units subcu daily Sliding scale as noted Pharmacy consult placed Hyponatremia/pseudohyponatremia- Sodium 125 on admission Corrected sodium 135 Serum and urine osmolality ordered and pending Status post 1 L normal saline bolus from the ED Will receive another 1 L bolus Maintenance fluids of LR at 125 mL/h Repeat laboratories in a.m. Seizure disorder/history of right cerebral AVM- Continue Keppra and gabapentin Hypertension/CKD- Continue losartan and amlodipine, and aspirin Creatinine stable at 1.3, his baseline Follow serially Hyperlipidemia- Continue atorvastatin Anxiety/depression- Continue trazodone, nortriptyline, gabapentin, Lexapro Resident Activity Tracking Resident Involvement: Resident Care Provided Care Provided: Adult Hospital Medicine
--- NOTE | 2025-03-12 22:46 | Emergency Department Note ---
Impression & Plan Acute osteomyelitis of toe, Acute hyponatremia ED Provider Note NAME: JIMY MAKI AGE: 59 SEX: M : 1965 ARRIVES VIA: Walk-In INFORMANT: Patient, ED PROVIDER(S): Sadaf Zarco MD CHIEF COMPLAINT: Right third toe wound HPI: This is a 59-year-old male history of diabetes, diabetic neuropathy with previous amputation of toes presenting for right fourth toe wound. Patient notes that he was feeling well until yesterday. He notes the toe is now black. He has history of diabetic neuropathy and does not feel the pain. He reports no fevers, chills, nausea, vomiting. Reports no trauma ROS: See above HPI for pertinent positives & negatives. A total of 10 systems reviewed and were otherwise negative. PAST MEDICAL HISTORY: See Below PAST SURGICAL HISTORY: See Below FAMILY HISTORY: See Below SOCIAL HISTORY: See Below HOME MEDICATIONS: See Below ALLERGIES: See Below VITALS: See Below PHYSICAL EXAMINATION: General: resting comfortably in no acute distress, disheveled, chronically unwell appearing Head: Normocephalic and atraumatic Eyes: Normal inspection, extraocular muscles intact Ear, nose, throat: Normal external exam Neck: Normal range of motion Respiratory: lungs clear to auscultation bilaterally Cardiovascular: Regular rate/rhythm, no murmur GI: soft, nontender, no guarding or rebound Extremities: nontender, moves all extremities, necrotic appearing right fourth toe with right great toe Neuro: The patient awake and alert, appropriately conversive, no focal deficits, symmetric faces Skin: Warm, dry, and intact MEDICAL DECISION MAKING: This is a 59-year-old male presenting for right fourth toe wound. This toe appears necrotic with black eschar. It is slightly red as well. Concern for infection at this time. - No significant leukocytosis currently. Mild anemia is noted. Patient's blood work is concerning for hyponatremia to 125. - Hyperglycemia to 457 without DKA. - Extensive osteomyelitis involving the distal phalanx of the right fourth toe - Will start vancomycin and Zosyn - Care discussed with admitting hospitalist team for admission, Dr. Padilla Differential diagnosis: Osteomyelitis, cellulitis, abscess Diagnostics interpreted by me: ECG: None Cardiac Monitoring: An order was placed for continuous cardiac monitoring. The monitor shows a rate of 77 with sinus rhythm. Past Med/Surg History Problem List (Updated 03/13/25 @ 16:57 by Sadaf Zarco MD) Acute hyponatremia (Acute) Acute osteomyelitis of toe (Acute) Diabetic ulcer of toe of right foot with necrosis of bone Osteomyelitis Axillary abscess Acute hyponatremia (Acute) Acute hyperglycemia (Acute) Seizure (Acute) Stroke-like symptom Acute confusion (Acute) Seizure (Acute) Metabolic acidosis Breakthrough seizure Tinea pedis Status post partial amputation of foot Loss of sensation History of diabetic ulcer of foot Diabetic peripheral neuropathy associated with type 2 diabetes mellitus Acute renal failure (ARF) (Acute) H/O repair of right rotator cuff (Chronic) Amputated toe (Chronic) "right great toe due to osteomyelitis" Dyslipidemia (Chronic) HTN (hypertension) (Chronic) Medical History (Updated 03/13/25 @ 16:57 by Sadaf Zarco MD) Encounter for pre-operative examination Essential hypertension Chronic kidney disease, stage III (moderate) AVM (arteriovenous malformation) Diabetes mellitus Hx of diabetic foot ulcer Gait instability uses cane and walker "due to mobility issues from my AVM" History of seizure "only happened once, this is when they found out he had an AVM" Shakes "due to his AVM" Sleep apnea does not use his device anymore AVM (arteriovenous malformation) brain does not f/u w/specialist Neuropathy Anxiety Diabetes mellitus, type 2 Dyslipidemia Hypertension Surgical History Hx of repair of right rotator cuff History of amputation of toe rt great toe History of bronchoscopy Hx of blepharoplasty bilateral Social History Smoking Status: Never smoker Second Hand Exposure: No; Do You Dip or Chew Tobacco: No; Hx Alcohol Use: Yes Alcohol type: beer Hx Substance Use: No Preferred Language: Jamaican Communication Ability: Effective Eyeglass Lens Generator Required: No Beliefs That Will Affect Care: None Current Living Situation: Family Current Living Situation Comment: pt lives with step dad Other Information That Helps Us Care for You: No Feels Safe at Home: Yes Safety Concerns: Feels Safe At This Time Assistive Devices: Glasses Allergies Allergies Allergy/AdvReac Type Severity Reaction Status Date / Time No Known Allergies Allergy Verified 03/12/25 19:46 Home Meds Home Medications Medication Instructions Recorded Confirmed aspirin 81 mg capsule 81 mg PO DAILY 08/30/23 03/12/25 acetaminophen 325 mg tablet 650 mg PO DAILY 12/08/24 03/12/25 amlodipine 5 mg tablet 5 mg PO DAILY 12/08/24 03/12/25 calcium carbonate 500 mg PO DAILY 12/08/24 03/12/25 docusate sodium 50 mg capsule 50 mg PO DAILY 12/08/24 03/12/25 escitalopram oxalate 10 mg tablet 10 mg PO DAILY 12/08/24 03/12/25 (Lexapro) levetiracetam 500 mg tablet 1,000 mg PO BID 12/08/24 03/12/25 (Keppra) losartan 25 mg tablet 25 mg PO DAILY 12/08/24 03/12/25 nortriptyline 10 mg capsule 10 mg PO HS 12/08/24 03/12/25 sennosides 8.6 mg capsule (senna) 8.6 mg PO HS 12/08/24 03/12/25 trazodone 100 mg tablet 100 mg PO HS 12/08/24 03/12/25 ascorbic acid (vitamin C) 500 mg 500 mg PO BID 03/12/25 03/12/25 tablet (Vitamin C) atorvastatin 80 mg tablet 80 mg PO HS 03/12/25 03/12/25 diclofenac sodium 1 % topical gel 4 g topical TID PRN Pain 03/12/25 03/12/25 gabapentin 300 mg capsule 300 mg PO TID 03/12/25 03/12/25 zinc acetate 50 mg (zinc) capsule 50 mg PO DAILY 03/12/25 03/12/25 Previous Rx's Medication Instructions Recorded ferrous gluconate 324 mg (38 mg 324 mg PO BIDM #30 tabs 12/15/24 iron) tablet insulin glargine 100 unit/mL 28 unit (0.28 mL) subcut QAM #10 mL 12/15/24 subcutaneous solution (Lantus U-100 Insulin) Results & Data (ED) Vital Signs Vital Signs - 24 hr 03/12/25 16:14 03/12/25 21:36 Temperature 36.7 C Temperature Source Temporal Artery Scan Pulse Rate 88 83 Respiratory Rate 18 Respiratory Effort / Characteristics Non-Labored Respiratory Depth Normal Blood Pressure 121/73 Blood Pressure Mean 89 Pulse Oximetry 96 Oxygen Delivery Method Room Air Sepsis Recent Fever Within 48 Hours No Sepsis New/Unexplained Change in Mental Status No Sepsis Action Taken by Nursing No Action Required Laboratory Data 03/13/25 06:50 03/13/25 06:50 Lab Results 03/12/25 03/12/25 03/12/25 Range/Units 16:34 16:43 19:08 WBC 4.59 L (4.8-10.8) K/ul RBC 4.61 L (4.70-6.10) M/uL Hgb 12.0 L (14.0-18.0) g/dl Hct 35.9 L (42.0-52.0) % MCV 77.9 L (80.0-100.0) fL MCH 26.0 (25.0-34.0) pg MCHC 33.4 (32.0-36.0) g/dL RDW Std Deviation 39.6 (36.4-46.3) fL RDW Coeff of Brain 14.1 (11.5-14.5) % Plt Count 177 (130-400) K/uL MPV 8.8 L (9.4-12.4) fL Immature Gran % (Auto) 0.2 % Neut % (Auto) 65.6 % Lymph % (Auto) 18.7 % [place] % (Auto) 10.0 % Eos % (Auto) 4.8 % Baso % (Auto) 0.7 % Neut # (Auto) 3.01 (1.40-6.50) K/uL Lymph # (Auto) 0.86 L (1.20-3.40) K/uL [place] # (Auto) 0.46 (0.11-0.59) K/uL Eos # (Auto) 0.22 (0.00-0.50) K/uL Baso # (Auto) 0.03 (0.00-0.20) K/uL Immature Gran # (Auto) 0.01 (0.01-0.20) K/uL Sodium 125 L (136-145) mmol/L Potassium 4.8 (3.5-5.1) mmol/L Chloride 92 L (98-107) mmol/L Carbon Dioxide 26 (21-32) mmol/L Anion Gap 7 (3-11) BUN 25 H (6-23) mg/dl Creatinine 1.15 (0.6-1.4) mg/dl Est Cr Clr Drug Dosing Not Reportable eGFR 73.31 BUN/Creatinine Ratio 21.7 H (10-20) Glucose 457 H* (70-99(Fasting)) mg/dl POC Glucose 370 H* (70-99) mg/dl Osmolality 294 (280-300) mOsm/kg Calcium 8.9 (8.6-10.3) mg/dl Total Bilirubin 0.7 (0.2-1.0) mg/dl AST 14 (13-39) U/L ALT 12 (7-52) U/L Alkaline Phosphatase 102 (34-104) U/L Total Protein 7.3 (6.0-8.3) gm/dl Albumin 3.7 (3.4-5.0) gm/dl Globulin 3.6 (2.5-4.0) gm/dl Albumin/Globulin Ratio 1.0 (0.9-2) Administered Medications Acetaminophen (Acetaminophen 500 Mg Tab) 1,000 mg PO Q8H MARIANO Stop: 04/12/25 03:29 Last Admin: 03/13/25 12:03 Dose: 1,000 mg Documented By: jorge alberto Admin: 03/13/25 03:24 Dose: 1,000 mg Documented By: RUTH Amlodipine Besylate (Amlodipine Besylate 5 Mg Tab) 5 mg PO DAILY MARIANO Stop: 04/12/25 08:59 Last Admin: 03/13/25 09:49 Dose: 5 mg Documented By: jorge alberto Ascorbic Acid (Ascorbic Acid 500 Mg Tab) 500 mg PO BID MARIANO Stop: 04/12/25 00:29 Last Admin: 03/13/25 09:50 Dose: 500 mg Documented By: jorge alberto Admin: 03/13/25 01:55 Dose: 500 mg Documented By: MARQUISE Atorvastatin Calcium (Atorvastatin 40 Mg Tab) 80 mg PO HS MARIANO Stop: 04/12/25 00:29 Last Admin: 03/13/25 01:55 Dose: 80 mg Documented By: MARQUISE Calcium Carbonate (Calcium Carbonate 1250mg Tab) 1 tab PO DAILY MARIANO Stop: 04/12/25 08:59 Last Admin: 03/13/25 09:51 Dose: 1 tab Documented By: jorge alberto Docusate Sodium (Docusate Sodium Syrup 100 Mg/10 Ml c) 50 mg PO DAILY MARIANO Stop: 04/12/25 08:59 Last Admin: 03/13/25 09:50 Dose: 50 mg Documented By: jorge alberto Escitalopram Oxalate (Escitalopram Oxalate 10 Mg Tab) 10 mg PO DAILY MARIANO Stop: 04/12/25 08:59 Last Admin: 03/13/25 09:50 Dose: 10 mg Documented By: jorge alberto Ferrous Gluconate (Ferrous Gluconate 324 Mg Tab) 324 mg PO BIDM [facility] Stop: 04/12/25 07:59 Last Admin: 03/13/25 09:49 Dose: 324 mg Documented By: jorge alberto Gabapentin (Gabapentin 300 Mg Cap) 300 mg PO TID MARIANO Stop: 04/12/25 00:29 Last Admin: 03/13/25 14:02 Dose: 300 mg Documented By: jorge alberto Admin: 03/13/25 09:48 Dose: 300 mg Documented By: jorge alberto Admin: 03/13/25 01:55 Dose: 300 mg Documented By: MARQUISE Vancomycin HCl 1,000 mg/ (Sodium Chloride) 270 mls @ 200 mls/hr IV Q12H [facility] Stop: 04/24/25 08:59 Last Infusion: 03/13/25 10:00 Dose: Infused Documented By: jorge alberto Admin: 03/13/25 08:40 Dose: 200 mls/hr Documented By: jorge alberto Piperacillin Sod/Tazobactam Sod (Zosyn) 4.5 gm in 100 mls @ 25 mls/hr IV Q8H [facility]; Protocol Stop: 04/24/25 02:59 Last Infusion: 03/13/25 16:07 Dose: Infused Documented By: Admin: 03/13/25 12:04 Dose: 25 mls/hr Documented By: jorge alberto Infusion: 03/13/25 06:09 Dose: Infused Documented By: Admin: 03/13/25 02:43 Dose: 25 mls/hr Documented By: MARQUISE Levetiracetam (Levetiracetam 500 Mg Tab) 1,000 mg PO BID MARIANO Stop: 04/12/25 00:29 Last Admin: 03/13/25 09:48 Dose: 1,000 mg Documented By: jorge alberto Admin: 03/13/25 01:55 Dose: 1,000 mg Documented By: MARQUISE Losartan Potassium (Losartan Potassium 25 Mg Tab) 25 mg PO DAILY [facility] Stop: 04/12/25 08:59 Last Admin: 03/13/25 09:49 Dose: 25 mg Documented By: jorge alberto Melatonin (Melatonin 3 Mg Tab) 3 mg PO HS PRN PRN Reason: Sleep Stop: 04/12/25 00:29 Last Admin: 03/13/25 01:55 Dose: 3 mg Documented By: MARQUISE Nortriptyline HCl (Nortriptyline Hcl 10 Mg Cap) 10 mg PO HS [facility] Stop: 04/12/25 00:29 Last Admin: 03/13/25 02:44 Dose: 10 mg Documented By: MARQUISE Sennosides (Senna 8.6 Mg Tab) 8.6 mg PO HS MARIANO Stop: 04/12/25 00:29 Last Admin: 03/13/25 01:55 Dose: 8.6 mg Documented By: MARQUISE Trazodone HCl (Trazodone Hcl 100 Mg Tab) 100 mg PO HS MARIANO Stop: 04/12/25 00:29 Last Admin: 03/13/25 01:55 Dose: 100 mg Documented By: MARQUISE Zinc Sulfate (Zinc Sulfate 220 Mg Capsule) 220 mg PO DAILY MARIANO Stop: 04/12/25 08:59 Last Admin: 03/13/25 09:49 Dose: 220 mg Documented By: wnt Discontinued Medications Vancomycin HCl 1,750 mg/ (Sodium Chloride) 535 mls @ 200 mls/hr IV NOW ONE Stop: 03/12/25 22:04 Last Infusion: 03/13/25 00:02 Dose: Infused Documented By: Admin: 03/12/25 20:52 Dose: 200 mls/hr Documented By: BHARGAVI Piperacillin Sod/Tazobactam Sod (Zosyn) 4.5 gm in 100 mls @ 200 mls/hr IV NOW ONE; Protocol Stop: 03/12/25 19:53 Last Infusion: 03/12/25 20:50 Dose: Infused Documented By: Admin: 03/12/25 20:14 Dose: 200 mls/hr Documented By: BHARGAVI Sodium Chloride (Nss) 1,000 mls @ 999 mls/hr IV .Q1H1M ONE Stop: 03/12/25 21:30 Last Infusion: 03/12/25 22:15 Dose: Infused Documented By: Admin: 03/12/25 20:52 Dose: 999 mls/hr Documented By: BHARGAVI Sodium Chloride (Nss) 1,000 mls @ 999 mls/hr IV .Q1H1M ONE Stop: 03/12/25 22:35 Last Infusion: 03/13/25 00:02 Dose: Infused Documented By: Admin: 03/12/25 22:52 Dose: 999 mls/hr Documented By: BHARGAVI Lactated Ringer's (Lr) 1,000 mls @ 125 mls/hr IV .Q8H MARIANO Stop: 03/13/25 08:29 Last Infusion: 03/13/25 10:00 Dose: Infused Documented By: jorge alberto Admin: 03/13/25 01:59 Dose: 125 mls/hr Documented By: MARQUISE Insulin Aspart (Insulin Aspart Per Unit Charge) 0 units SC Q6 MARIANO Stop: 04/12/25 01:44 Last Admin: 03/13/25 12:03 Dose: 4 units Documented By: jorge alberto Co-signed By: MARINE Admin: 03/13/25 06:11 Dose: 3 units Documented By: MARQUISE Co-signed By: RUTH Admin: 03/13/25 01:55 Dose: 8 units Documented By: MARQUISE Co-signed By: ARELI Insulin Glargine (Lantus Per Unit Charge) 14 units SQ DAILY MARIANO Stop: 04/12/25 08:59 Last Admin: 03/13/25 08:41 Dose: 14 units Documented By: jorge alberto Co-signed By: MARINE Miscellaneous (Patient's Height &/Or Weight Needed) 1 each N/A Q2H STA Stop: 03/13/25 00:42 Last Admin: 03/13/25 02:01 Dose: 1 each Documented By: MARQUISE Imaging Data Radiologist's Impression: Toe X-Ray 03/12/25 16:19 Exam: X-ray right toes limited to the right fourth toe. Reason for exam: Fourth digit toe ulceration. Previous studies: None FINDINGS: There is marked soft tissue swelling. There is active bone destruction of the distal phalanx consistent with acute osteomyelitis and overlying soft tissue ulceration. The middle and proximal phalanges appear intact at this time. IMPRESSION: Extensive acute osteomyelitis involving the distal phalanx of the right fourth toe. Electronically signed by Nixon Art 03-12-2025 6:59 PM Discharge Plan Visit Data Chief Complaint: Toe Injury/Pain Stated Complaint: NECROSIS ON THIRD TOE ON RT FOOT ED Provider: Sadaf Zarco Discharge Problem: Acute osteomyelitis of toe, Acute hyponatremia Patient Disposition: Admitted As Inpatient Condition: Serious Discharge Instructions Interventions: ED Discharge Assessment Last Done: 03/13/25 00:31 Discharge Problem: Acute osteomyelitis of toe Qualifiers: Laterality: right Qualified Code(s): M86.171 - Other acute osteomyelitis, right ankle and foot
[2025-03-13] MEDS ORDERED: GLUCAGON FOR INJ 1 MG VIAL SQ PRN (00:30)
[2025-03-13] MEDS ORDERED: ONDANSETRON INJ 2 MG/ML 2 ML VIAL IV PRN ×2 (00:30→15:57)
[2025-03-13] MEDS ORDERED: GLUCOSE 10 TAB/TUBE PO PRN (00:30)
[2025-03-13] MEDS ORDERED: DEXTROSE 50% 50 ML SYRINGE IV PRN (00:30)
[2025-03-13] MEDS ORDERED: VANCOMYCIN CONSULT ACTIVE PRN (00:30)
[2025-03-13] MEDS ORDERED: PHARMACY GLYCEMIC MGMT CONSULT PRN (00:30)
[2025-03-13] MEDS ORDERED: GLUCOSE 40% GEL 15 GM TUBE PO PRN (00:30)
[2025-03-13] MEDS ORDERED: CARBOHYDRATES FOR HYPOGLYCEMIA PO PRN (00:30)
[2025-03-13] MEDS: levETIRAcetam 500 MG TAB PO SCH (01:55)
[2025-03-13] MEDS: GABAPENTIN 300 MG CAP PO SCH (01:55)
[2025-03-13] MEDS: SENNA 8.6 MG TAB PO SCH (01:55)
[2025-03-13] MEDS: INSULIN ASPART PER UNIT CHARGE SC SCH ×2 (01:55→18:23)
[2025-03-13] MEDS: MELATONIN 3 MG TAB PO PRN (01:55)
[2025-03-13] MEDS: ASCORBIC ACID 500 MG TAB PO SCH (01:55)
[2025-03-13] MEDS: ATORVASTATIN 40 MG TAB PO SCH (01:55)
[2025-03-13] MEDS: LACTATED RINGER'S 1,000 ML IV SCH (01:59)
[2025-03-13] MEDS: Patient's HEIGHT &/or WEIGHT Needed STA (02:01)
[2025-03-13] MEDS: PIPERACILLIN/TAZOBACTAM 4.5 GM/100 ML BAG IV SCH (02:43)
[2025-03-13] MEDS: NORTRIPTYLINE HCL 10 MG CAP PO SCH (02:44)
[2025-03-13] MEDS: ACETAMINOPHEN 500 MG TAB PO SCH (03:24)
--- NOTE | 2025-03-13 05:26 | Billing Data ---
Date of Service March 13, 2025 Coding Level of Care Code 58186 INT INP/OBS CARE
[2025-03-13 07:34] LABS: Hematocrit (blood only) 32.8 % (42.0-52.0); Hemoglobin 10.9 g/dl (14.0-18.0); Immature Granulocytes # (auto) 0.01 K/uL (0.01-0.20); Immature Granulocytes % (auto) 0.3 %; Mean Corpuscular Hemoglobin 26.4 pg (25.0-34.0); Mean Corpuscular Volume 79.4 fL (80.0-100.0); Platelet Count 153 K/uL (130-400); RDW Standard Deviation 40.7 fL (36.4-46.3); Red Blood Count 4.13 M/uL (4.70-6.10); White Blood Count 3.32 K/ul (4.8-10.8)
[2025-03-13 08:01] LABS: Alanine Aminotransferase 11.0 U/L (7-52); Albumin Globulin Ratio 1.0 (0.9-2); Alkaline Phosphatase 80.0 U/L (34-104); Anion Gap 5.0 (3-11); Bilirubin,Total 0.7 mg/dl (0.2-1.0); Blood Urea Nitrogen 23.0 mg/dl (6-23); Calcium 8.7 mg/dl (8.6-10.3); Carbon Dioxide 28.0 mmol/L (21-32); Chloride 103.0 mmol/L (98-107); Creatinine Clr Calc Pharmacy 74.2 ml/min; Globulin 3.1 gm/dl (2.5-4.0); Glucose 209.0 mg/dl (70-99(Fasting)); INR 1.0 (0.9-1.1); Magnesium 2.1 mg/dl (1.7-2.4); Partial Thromboplastin Time 27 Seconds (21-31); Potassium 3.8 mmol/L (3.5-5.1); Prothrombin Time 11.0 Seconds (9.0-12.0); Sodium 136.0 mmol/L (136-145); Total Protein 6.2 gm/dl (6.0-8.3)
[2025-03-13 08:28] LABS: Hemoglobin A1C 13.6 % (4.5-5.6)
--- NOTE | 2025-03-13 08:30 | Hospitalist Progress Note ---
Date of Service March 13, 2025 Assessment & Plan (1) Osteomyelitis: (2) Diabetic peripheral neuropathy associated with type 2 diabetes mellitus: Plan 59 y/o male with PMH of poorly controlled T2DM, diabetic peripheral neuropathy, HTN, hyperlipidemia, anxiety/depression, seizures, and history of treated right- sided cerebral AVM. He presented to the ED due to discoloration of his right fourth toe that he noticed turned black 2 days prior to admission. X-ray on admission revealed extensive acute osteomyelitis of the distal right fourth toe. He was admitted for management of such. #Osteomyelitis - right distal phalanx of the fourth toe - Patient with history of uncontrolled DM. Patient with right 4th toe ulceration. Noticed toe going black 2 days ago. Hx of osteomyelitis s/p amputation on right toe - Continue Vancomycin IV and Zosyn IV - Blood cultures pending - Podiatry consulted - going to the OR for right fourth toe amputation today 03/[address] Landers #Hypotonic hyponatremia | Pseudohyponatremia - Sodium on admission- 125, corrected sodium for hyperglycemia- 135. Serum osmolality normal, urine osmolality low - consistent with pseudohyponatremia - S/p 2 L NSS - Sodium improved and now WNL at 136 #T2DM - Home regimen of Lantus 28 units daily; patient reports compliance - BSG 457 on admission - A1c remains significantly elevated at 13.6% - Previously on Jardiance - pt non complaint - Pharmacy consulted - Requires significant blood sugar control especially in setting of acute wound to promote healing #Microcytic anemia-mild, stable from previous - Follow CBC, check iron studies - Takes oral iron supplement - Needs GI workup as an outpatient if not done previously #HTN - continue losartan and amlodipine - On aspirin, will held for now for possible surgical intervention #Seizures - past history of right cerebral AVM - continue Keppra 1,00 BID and gabapentin #History of CKD - Creatinine baseline around 1.3 - Renal function at baseline. Avoid nephrotoxic agents when possible #Hyperlipidemia - continue statin #Anxiety - continue Lexapro DVT prophylaxis: SCDs Disposition: Pending podiatry's input Admission and Anticipated Discharge Date Admission Date: March 12, 2025 Supervising Physician Co-Signing Physician Notes RANDI Supervision Note: I did not personally see or examine the patient today, but I verified all dunn points of RANDI Herrera's assessment and plan with the following exceptions/additions: None Subjective Patient seen and evaluated at bedside. He denies any pain in his right foot. We discussed his significantly elevated A1c of 13.6%. He states he takes both "insulin and pills" at home and reports compliance. We also discussed the results of his x-ray showing significant osteomyelitis and his antibiotic regimen. He has yet to be seen by podiatry but we discussed that he will likely require amputation of this toe. He is understanding. He denies any nausea, abdominal pain, chest pain, shortness of breath, headache. No acute complaints or concerns at this time. Review of Systems Review of Systems: All systems reviewed & are unremarkable except as noted in HPI & below Physical Exam Physical Exam: General: No acute distress, nondiaphoretic, well-developed, well-nourished. Skin: Warm, dry. No rashes or peripheral edema noted. Extremities: Right fourth distal toe with scaled gangrenous ulceration; no drainage noted. Cardiac: Regular rate and rhythm without murmurs gallops or rubs. Pulm: Clear to auscultation bilaterally without wheezes, rales or rhonchi. Normal respiratory effort. 97% on room air. Abdominal: Soft, nontender, nondistended. Bowel sounds present. Neuro: A&O x3. No focal neurological deficits. Results & Data Results & Data Vital Signs (Past 12 Hours) Vital Signs Temp Pulse Pulse Resp BP BP BP 03/13/25 07:35 97.3 F L 71 10 L 97/60 L 03/13/25 01:20 03/13/25 01:20 97.9 F 89 16 156/87 H 03/12/25 23:21 87 16 162/90 H 03/12/25 22:30 80 14 03/12/25 22:00 81 22 146/115 H 03/12/25 21:36 83 03/12/25 21:30 82 25 H 144/86 H Pulse Ox O2 Del Method 03/13/25 07:35 97 Room Air 03/13/25 01:20 Room Air 03/13/25 01:20 98 Room Air 03/12/25 23:21 98 Room Air 03/12/25 22:30 97 03/12/25 22:00 97 03/12/25 21:36 03/12/25 21:30 98 Room Air Laboratory Results Reviewed CBC with differential Reviewed coags Reviewed CMP, chemistries Reviewed urine studies Reviewed blood cultures Diagnostic Findings Reviewed toe x-ray PG Care Time/CCT Total # of Minutes Spent Total Time Spent with Patient: Total time spent is greater than 50% in coordination of care (as documented) at patient's floor/unit and/or counseling patient: Coding Level of Care Code 27541 SUB INP/OBS CARE 3/50MIN Diagnoses Osteomyelitis M86.9 Diabetic peripheral neuropathy associated with type 2 diabetes mellitus E11.42
[2025-03-13] MEDS: VANCOMYCIN HCL 1,000 MG in SODIUM CHLORIDE 0.9% 250 ML IV SCH (08:40)
[2025-03-13] MEDS: LANTUS PER UNIT CHARGE SQ SCH ×2 (08:41→18:22)
[2025-03-13] MEDS ORDERED: ACETAMINOPHEN 325 MG TAB PO SCH (09:00)
[2025-03-13] MEDS: FERROUS GLUCONATE 324 MG TAB PO SCH (09:49)
[2025-03-13] MEDS: LOSARTAN POTASSIUM 25 MG TAB PO SCH (09:49)
[2025-03-13] MEDS: ZINC SULFATE 220 MG CAPSULE PO SCH (09:49)
[2025-03-13] MEDS: DOCUSATE SODIUM SYRUP 100 MG/10 ML UDC PO SCH (09:50)
[2025-03-13] MEDS: ESCITALOPRAM OXALATE 10 MG TAB PO SCH (09:50)
[2025-03-13] MEDS: CALCIUM CARBONATE 1250MG TAB PO SCH (09:51)
--- NOTE | 2025-03-13 10:07 | Pharmacy Report ---
Pharmacy PK ABX Note - Date of Service March 13, 2025 - Assessment and Plan Assessment 59 year old M receiving vancomycin and zosyn for toe osteomyelitis. Hx of osteomyelitis s/p amputation of right toe. NPO for possible intervention. Blood cultures pending. Plan Vancomycin * Loading dose: 1750 mg IV x 1 * Maintenance dose: 1000 mg IV every 12 hours * Regimen is predicted to achieve target AUC/DONNA of 400-600 mg/L.hr * Random level ordered tomorrow AM Pharmacy will continue to follow and will adjust dose/frequency as necessary. Thank you. Pharmacy has transitioned to AUC monitoring for vancomycin. AUC/DONNA is the preferred PK/PD target and is associated with decreased risk of nephrotoxicity compared to traditional trough targets.
--- NOTE | 2025-03-13 14:49 | Pharmacy Report ---
Pharmacy Glycemic Short Note 2 - Date of Service March 13, 2025 - Glycemic Short BSG Results (Last 24 hours): 03/12/25 03/12/25 03/13/25 16:34 19:08 01:22 Glucose 457 H* POC Glucose 370 H* 339 H* 03/13/25 03/13/25 03/13/25 06:09 06:50 11:55 Glucose 209 H POC Glucose 207 H 222 H OUTPATIENT ANTIDIABETIC REGIMEN: * Lantus 28 units once daily ASSESSMENT: * 59 year old admitted with toe osteomyelitis. Type 2 diabetic - pharmacy consulted for glycemic management. NPO this AM for possible intervention. Lantus 14 units (50%) given this AM for NPO status. BSG >200 fasting. Diet starting with dinner - will add on an additional Lantus 5 units with dinner. Plan to trial Lantus 20 units once daily starting tomorrow AM PLAN FOR INPATIENT GLYCEMIC CONTROL: * Hold outpatient oral diabetes medications * Basal insulin * Lantus 20 units daily * Bolus insulin * NovoLog per scale ACHS or Q6hrs while NPO * Goal Range: Low 110 mg/dL - High 140 mg/dL * Correction Factor: 20 mg/dL/unit * Nutritional / Prandial insulin per carb ratio of 1 unit per 8 grams CHO consumed
--- NOTE | 2025-03-13 15:20 | Podiatry Consultation ---
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 - Patient has been n.p.o. since midnight. History of Present Illness Reason for Consultation: Osteomyelitis of the right fourth toe Attending Physician: Marilu Camejo MD History of Present Illness Patient reports emergency department on 03/12/2025 with diabetic ulceration to the right fourth toe. Past medical history significant for type 2 diabetes with diabetic peripheral neuropathy and history of right hallux amputation for treatment of osteomyelitis secondary to diabetic foot ulceration. Plain film radiographs reveal osteomyelitis of the distal phalanx of the right fourth toe. He is initiated on IV vancomycin and Zosyn. Allergies Allergy/AdvReac Type Severity Reaction Status Date / Time No Known Allergies Allergy Verified 03/12/25 19:46 Home Medications Medication Instructions Recorded Confirmed Type aspirin 81 mg capsule 81 mg PO DAILY 08/30/23 03/12/25 History acetaminophen 325 mg tablet 650 mg PO DAILY 12/08/24 03/12/25 History amlodipine 5 mg tablet 5 mg PO DAILY 12/08/24 03/12/25 History calcium carbonate 500 mg PO DAILY 12/08/24 03/12/25 History docusate sodium 50 mg capsule 50 mg PO DAILY 12/08/24 03/12/25 History escitalopram oxalate 10 mg tablet 10 mg PO DAILY 12/08/24 03/12/25 History (Lexapro) levetiracetam 500 mg tablet 1,000 mg PO BID 12/08/24 03/12/25 History (Keppra) losartan 25 mg tablet 25 mg PO DAILY 12/08/24 03/12/25 History nortriptyline 10 mg capsule 10 mg PO HS 12/08/24 03/12/25 History sennosides 8.6 mg capsule (senna) 8.6 mg PO HS 12/08/24 03/12/25 History trazodone 100 mg tablet 100 mg PO HS 12/08/24 03/12/25 History ferrous gluconate 324 mg (38 mg 324 mg PO BIDM #30 tabs 12/15/24 03/12/25 Rx iron) tablet insulin glargine 100 unit/mL 28 unit (0.28 mL) subcut QAM #10 mL 12/15/24 03/12/25 Rx subcutaneous solution (Lantus U-100 Insulin) ascorbic acid (vitamin C) 500 mg 500 mg PO BID 03/12/25 03/12/25 History tablet (Vitamin C) atorvastatin 80 mg tablet 80 mg PO HS 03/12/25 03/12/25 History diclofenac sodium 1 % topical gel 4 g topical TID PRN Pain 03/12/25 03/12/25 History gabapentin 300 mg capsule 300 mg PO TID 03/12/25 03/12/25 History zinc acetate 50 mg (zinc) capsule 50 mg PO DAILY 03/12/25 03/12/25 History Patient History Medical History Hx of diabetic foot ulcer Gait instability uses cane and walker "due to mobility issues from my AVM" History of seizure "only happened once, this is when they found out he had an AVM" Shakes "due to his AVM" Sleep apnea does not use his device anymore AVM (arteriovenous malformation) brain does not f/u w/specialist Neuropathy Anxiety Diabetes mellitus, type 2 Dyslipidemia Hypertension Surgical History Hx of repair of right rotator cuff History of amputation of toe rt great toe History of bronchoscopy Hx of blepharoplasty bilateral Social History Smoking Status: Never smoker Second Hand Exposure: No; Do You Dip or Chew Tobacco: No; Hx Alcohol Use: Yes Alcohol type: beer Hx Substance Use: No Preferred Language: [place] Communication Ability: Effective Mender Kn[employer] Goods Required: No Beliefs That Will Affect Care: None Current Living Situation: Family Current Living Situation Comment: pt lives with step dad Other Information That Helps Us Care for You: No Feels Safe at Home: Yes Safety Concerns: Feels Safe At This Time Assistive Devices: Glasses Review of Systems Review of Systems: Patient denies nausea, vomiting, fever, chills, shortness of breath, chest pain. Denies pain in the right foot. All other systems reviewed and negative unless detailed in HPI. Physical Exam Physical Exam: Const: Appears well developed and well nourished. No signs of acute distress present. CV: Extremities: No cyanosis or edema. Capillary refill time is less than 2 seconds all digits of the bilateral foot. Posterior tibial and dorsalis pedis pulses are palpable bilateral. Lymph: No palpable or visible regional lymphadenopathy. Skin: No scars, rashes, lesions or ecchymosis. Neuro: Loss of protective sensation in the bilateral foot and ankle Psych: Mood/Affect: Mood is normal. Affect is normal. Cognition: Orientation is intact to person, place and time. Focused lower extremity musculoskeletal exam: Leg: No pain with compression of the calf muscle. Ankles: Normal to inspection and palpation. No swelling bilaterally. No tenderness bilaterally. Motor strength is intact. Range of motion pain-free and unlimited. Feet:No obvious instability. History of right hallux amputation with well-healed cicatrix. Ulceration to the distal aspect of the right fourth toe extending to the level of bone of the distal phalanx. Erythema and edema most prominent at the distal aspect of the right fourth toe with erythema extending to the base of the digit. Mild malodor noted. Scant purulent drainage on probing of the wound. Results & Data Vital Signs (Past 12 Hours) Vital Signs Temp Pulse Resp BP BP Pulse Ox O2 Del Method 03/13/25 12:20 Room Air 03/13/25 09:45 14 119/72 96 Room Air 03/13/25 09:00 14 106/65 03/13/25 08:14 36.7 C 95/61 L 03/13/25 07:35 36.3 C L 71 10 L 97/60 L 97 Room Air PG Care Time/CCT Total # of Minutes Spent Total Time Spent with Patient: Total time spent is greater than 50% in coordination of care (as documented) at patient's floor/unit and/or counseling patient: Coding Level of Care Code 11485 INT INP/OBS CARE 2/55MIN Diagnoses Diabetic ulcer of toe of right foot associated with type 2 diabetes mellitus, with necrosis of bone E11.621; L97.514 Diabetes mellitus type: type 2 Diabetic peripheral neuropathy associated with type 2 diabetes mellitus E11.42
[2025-03-13] MEDS ORDERED: ONDANSETRON INJ 2 MG/ML 2 ML VIAL ONE (15:37)
[2025-03-13] MEDS ORDERED: LIDOCAINE 2% 2 ML VIAL/AMP(20MG/ML) INFIL ONE (15:37)
[2025-03-13] MEDS ORDERED: MIDAZOLAM HCL 1 MG/ML 2ML VIAL ONE (15:37)
[2025-03-13] MEDS ORDERED: PROPOFOL IV EMULSION 10 MG/ML 20 ML VIAL IV ONE (15:37)
--- NOTE | 2025-03-13 15:55 | Anesthesiology Consultation ---
Date of Service March 13, 2025 Assessment & Plan (1) Encounter for pre-operative examination: Chart Review Chart Review: Acceptable Risk for Surgery and Patient NOT seen in Pre Admission Testing Consults Requested none History Surgery Operation Date: 03/13/25 09:30 Proposed Procedures p Right Fourth Toe Amputation - Major Landers DPM Height/Weight Height: 5 ft 8 in Weight: 97 kg Allergies Allergy/AdvReac Type Severity Reaction Status Date / Time No Known Allergies Allergy Verified 03/12/25 19:46 Medications Home Medications Medication Instructions Recorded Confirmed Last Taken aspirin 81 mg capsule 81 mg PO DAILY 08/30/23 03/12/25 03/12/25 acetaminophen 325 mg tablet 650 mg PO DAILY 12/08/24 03/12/25 03/12/25 amlodipine 5 mg tablet 5 mg PO DAILY 12/08/24 03/12/25 03/12/25 calcium carbonate 500 mg PO DAILY 12/08/24 03/12/25 03/12/25 docusate sodium 50 mg capsule 50 mg PO DAILY 12/08/24 03/12/25 03/12/25 escitalopram oxalate 10 mg tablet 10 mg PO DAILY 12/08/24 03/12/25 03/12/25 (Lexapro) levetiracetam 500 mg tablet 1,000 mg PO BID 12/08/24 03/12/25 03/12/25 08:00 (Keppra) losartan 25 mg tablet 25 mg PO DAILY 12/08/24 03/12/25 03/12/25 nortriptyline 10 mg capsule 10 mg PO HS 12/08/24 03/12/25 03/11/25 sennosides 8.6 mg capsule (senna) 8.6 mg PO HS 12/08/24 03/12/25 03/11/25 trazodone 100 mg tablet 100 mg PO HS 12/08/24 03/12/25 03/11/25 ferrous gluconate 324 mg (38 mg 324 mg PO BIDM #30 tabs 12/15/24 03/12/25 03/12/25 08:00 iron) tablet insulin glargine 100 unit/mL 28 unit (0.28 mL) subcut QAM #10 mL 12/15/24 03/12/25 03/12/25 subcutaneous solution (Lantus U-100 Insulin) ascorbic acid (vitamin C) 500 mg 500 mg PO BID 03/12/25 03/12/25 03/12/25 08:00 tablet (Vitamin C) atorvastatin 80 mg tablet 80 mg PO HS 03/12/25 03/12/25 03/11/25 diclofenac sodium 1 % topical gel 4 g topical TID PRN Pain 03/12/25 03/12/25 Unknown gabapentin 300 mg capsule 300 mg PO TID 03/12/25 03/12/25 03/12/25 12:00 zinc acetate 50 mg (zinc) capsule 50 mg PO DAILY 03/12/25 03/12/25 03/12/25 Active Medications Generic Name Dose Route Start Last Admin Trade Name Freq PRN Reason Stop Dose Admin Acetaminophen 1,000 mg 03/13/25 03:30 03/13/25 12:03 Acetaminophen 500 Mg Tab PO 04/12/25 03:29 1,000 mg Q8H MARIANO Administration Amlodipine Besylate 5 mg 03/13/25 09:00 03/13/25 09:49 Amlodipine Besylate 5 Mg Tab PO 04/12/25 08:59 5 mg DAILY MARIANO Administration Ascorbic Acid 500 mg 03/13/25 00:30 03/13/25 09:50 Ascorbic Acid 500 Mg Tab PO 04/12/25 00:29 500 mg BID MARIANO Administration Atorvastatin Calcium 80 mg 03/13/25 00:30 03/13/25 01:55 Atorvastatin 40 Mg Tab PO 04/12/25 00:29 80 mg HS MARIANO Administration Calcium Carbonate 1 tab 03/13/25 09:00 03/13/25 09:51 Calcium Carbonate 1250mg Tab PO 04/12/25 08:59 1 tab DAILY MARIANO Administration Docusate Sodium 50 mg 03/13/25 09:00 03/13/25 09:50 Docusate Sodium Syrup 100 Mg/10 Ml Udc PO 04/12/25 08:59 50 mg DAILY MARIANO Administration Escitalopram Oxalate 10 mg 03/13/25 09:00 03/13/25 09:50 Escitalopram Oxalate 10 Mg Tab PO 04/12/25 08:59 10 mg DAILY MARIANO Administration Ferrous Gluconate 324 mg 03/13/25 08:00 03/13/25 09:49 Ferrous Gluconate 324 Mg Tab PO 04/12/25 07:59 324 mg BIDM MARIANO Administration Gabapentin 300 mg 03/13/25 00:30 03/13/25 14:02 Gabapentin 300 Mg Cap PO 04/12/25 00:29 300 mg TID MARIANO Administration Vancomycin HCl 1,000 mg/ 270 mls @ 200 mls/hr 03/13/25 09:00 03/13/25 10:00 Sodium Chloride IV 04/24/25 08:59 Infused Q12H MARIANO Infusion Piperacillin Sod/Tazobactam Sod 4.5 gm in 100 mls @ 25 mls/hr 03/13/25 03:00 03/13/25 12:04 Zosyn IV 04/24/25 02:59 25 mls/hr Q8H MARIANO Administration Protocol Levetiracetam 1,000 mg 03/13/25 00:30 03/13/25 09:48 Levetiracetam 500 Mg Tab PO 04/12/25 00:29 1,000 mg BID MARIANO Administration Losartan Potassium 25 mg 03/13/25 09:00 03/13/25 09:49 Losartan Potassium 25 Mg Tab PO 04/12/25 08:59 25 mg DAILY MARIANO Administration Melatonin 3 mg 03/13/25 00:30 03/13/25 01:55 Melatonin 3 Mg Tab PO 04/12/25 00:29 3 mg HS PRN Administration Sleep Nortriptyline HCl 10 mg 03/13/25 00:30 03/13/25 02:44 Nortriptyline Hcl 10 Mg Cap PO 04/12/25 00:29 10 mg HS MARIANO Administration Sennosides 8.6 mg 03/13/25 00:30 03/13/25 01:55 Senna 8.6 Mg Tab PO 04/12/25 00:29 8.6 mg HS MARIANO Administration Trazodone HCl 100 mg 03/13/25 00:30 03/13/25 01:55 Trazodone Hcl 100 Mg Tab PO 04/12/25 00:29 100 mg HS MARIANO Administration Zinc Sulfate 220 mg 03/13/25 09:00 03/13/25 09:49 Zinc Sulfate 220 Mg Capsule PO 04/12/25 08:59 220 mg DAILY MARIANO Administration NPO Date Last Intake of Fluids: 03/13/25 Time Last Intake of Fluids: 14:00 Last Intake of Fluids Comment: sips Date Last Intake of Solids: 03/12/25 Past Medical History Medical History (Updated 03/13/25 @ 15:56 by Jesse England MD) Encounter for pre-operative examination Essential hypertension Chronic kidney disease, stage III (moderate) AVM (arteriovenous malformation) Diabetes mellitus Hx of diabetic foot ulcer Gait instability uses cane and walker "due to mobility issues from my AVM" History of seizure "only happened once, this is when they found out he had an AVM" Shakes "due to his AVM" Sleep apnea does not use his device anymore AVM (arteriovenous malformation) brain does not f/u w/specialist Neuropathy Anxiety Diabetes mellitus, type 2 Dyslipidemia Hypertension Exercise / Class Metabolic Activity II 4-5 Yardwork/Stairs/Walk up hill Past Surgical History Surgical History Hx of repair of right rotator cuff History of amputation of toe rt great toe History of bronchoscopy Hx of blepharoplasty bilateral Social History Smoking Status: Never smoker Do You Dip or Chew Tobacco: No Hx Alcohol Use: Yes Alcohol type: beer alcohol intake frequency: a few times a week Alcohol Intake Frequency Comment: 6-12 pack every weekend, last drink was Wednesday03/09/2025 Hx Substance Use: No substance use type: does not use Physical Exam Vital Signs Last Vital Signs Temp 36.1 C L 03/13/25 15:43 Pulse 77 03/13/25 15:43 Resp 14 03/13/25 15:43 BP 128/74 03/13/25 15:43 Pulse Ox 94 03/13/25 15:43 O2 Del Method Room Air 03/13/25 15:43 Testing Laboratory Results 03/13/25 06:50 03/13/25 06:50 PT 11.0 Seconds (9.0-12.0) 03/13/25 06:50 INR 1.0 (0.9-1.1) 03/13/25 06:50 APTT 27 Seconds (21-31) 03/13/25 06:50 Hemoglobin A1c 13.6 % (4.5-5.6) H 03/13/25 06:50 03/13/25 03/13/25 11:55 06:09 POC Glucose 222 H 207 H Electrocardiogram Date: 12/08/24 DICTATED BY: Justen Reis MD Test Reason : Blood Pressure : */* mmHG Vent. Rate : 107 BPM Atrial Rate : 107 BPM P-R Int : 196 ms QRS Dur : 86 ms QT Int : 338 ms P-R-T Axes : -26 -11 1 degrees QTcB Int : 451 ms Sinus tachycardia possible Inferior infarct , age undetermined Abnormal ECG When compared with ECG of 12-Jul-2024 13:43, Inferior infarct is now Present ST no longer elevated in Inferior leads Nonspecific T wave abnormality now evident in Inferior leads Confirmed by Justen Reis ([id number]) on 12/10/2024 7:08:14 AM
[2025-03-13] MEDS ORDERED: PROMETHAZINE HCL 6.25 MG in SODIUM CHLORIDE 0.9% 50 ML IV PRN (15:57)
[2025-03-13] MEDS ORDERED: ATROPINE SULFATE 0.1 MG/ML 10ML SYR IV PRN (15:57)
[2025-03-13] MEDS ORDERED: ePHEDrine sulfate 50 MG/5 ML SYR ONE (16:33)
[2025-03-13] MEDS ORDERED: PHENYLEPHRINE HCL 10 MG/ML VIAL ONE (16:36)
--- NOTE | 2025-03-13 16:46 | Post Operative Brief Note ---
PG Immediate Post Op with CF Date of Surgery March 13, 2025 Pre & Post Diagnosis Operation Date: 03/13/25 09:30 Osteomyelitis right fourth toe I identified the patient and participated in the time-out.: Yes Procedure Operation Date: 03/13/25 09:30 Amputation right fourth toe Surgeon JOHNATHON DiazM Salesperson Meats none Estimated Blood Loss 5 Findings Consistent with Post-Op Diagnosis Specimens Specimen Description: A: Right 4th toe B: Proximal Margin Right 4th toe Culture #1- Right 4th toe tissue Complications none
[2025-03-13] MEDS: BUPIVACAINE 0.5 % 5 MG/1 ML MPF 30ML VIAL ONE (16:54)
--- NOTE | 2025-03-13 17:01 | Operative Report ---
PG Post Operative Report Pre & Post Diagnosis Operation Date: 03/13/25 09:30 Pre-Op Diagnosis: Right 4th toe Osteomyelitis Post-Op Diagnosis: Right 4th toe Osteomyelitis I identified the patient and participated in the time-out.: Yes Procedure Operation Date: 03/13/25 09:30 Actual Procedures p Right Fourth Toe Amputation(Right) - Major Landers DPM Surgeon Major Landers DPM Building Services Supervisor none Estimated Blood Loss 5 Findings Consistent with Post-Op Diagnosis Specimens Proximal margin pathology right fourth toe Right fourth toe for pathology Bone culture right fourth toe Drains None Complications None Description of Procedure Patient is brought in the operating room placed on the operating table in supine position. Timeout is held confirming correct patient, side, site, procedure with all necessary parties confirming. Following IV sedation local anesthesia is obtained about patient's right fourth ray in a modified Germain block fashion utilizing a total of 8 cc of 0.5% Marcaine plain in a modified Germain block fashio n. A well-padded nonsterile ankle tourniquet was placed about the patient's right ankle utilizing adequate cast padding protect soft tissues. The lower extremity was scrubbed prepped and draped to the level of the ankle tourniquet. Attention was directed to the right fourth digit which is noted to be erythematous with ulceration to the distal aspect of the toe. Tourniquet is inflated to 250 mmHg without exsanguination. A teardrop shaped incision is planned with a Skin Skribe at the base of the toe attempting to maintain adequate soft tissue for primary closure. 15 blade is utilized to create an incision which is carried deep to the level of bone. Soft tissue surrounding the proximal aspect of the proximal phalanx was freed with a dunn elevator. Sagittal saw was utilized to resect the fourth toe perpendicular to the long axis of the bone. On the back table proximal margin is collected from the cut end of the proximal phalanx and sent for pathology. Tourniquet was released and a prompt hyperemic response is noted to all remaining digits. Surgical wound is flushed with copious amounts of normal sterile saline. Tendinous structures within the surgical wound are pulled distally cut and allowed to retract into proximal soft tissues. Surgical wound is evaluated and noted to be free of any necrotic tissue. Wound is again flushed copious amounts of normal sterile saline. Deep soft tissue structures were reapproximated with a 3-0 Vicryl in simple interrupted fashion. Wound edges were reapproximated and closed with a 3-0 nylon in simple interrupted fashion. Foot is cleansed with normal sterile saline dried and dressed with Adaptic nonadherent gauze 4 x 4 fluff gauze ABD pad to the dorsum of the foot to protect soft tissue structures clean and lightly applied Coban to hold dressings in place. Patient tolerated procedure and anesthesia well. He was transferred to recovery room with vital signs stable and vascular status intact to the remaining digits of the operative foot. Following a brief period about postoperative monitoring recovery room patient will be transferred back to his bed on the medical floor for continued IV antibiotics and medical management. Patient to remain nonweightbearing to the surgical foot until further notice. Will reevaluate wound at first dressing change and adjust weightbearing status at that time. I attest to the content of the Intraoperative Record and any orders documented therein. Any exceptions are noted below.
--- NOTE | 2025-03-13 18:04 | Anesthesiology Progress Note ---
Date of Service March 13, 2025 Anesthesia Post Procedure Vital Signs Vital Signs: Temp Pulse Pulse Pulse Resp BP BP 03/13/25 17:36 36.2 C L 77 17 03/13/25 17:15 36.2 C L 75 12 03/13/25 17:05 74 12 03/13/25 16:55 74 12 03/13/25 16:49 36.2 C L 69 16 03/13/25 15:43 36.1 C L 77 14 128/74 03/13/25 12:20 03/13/25 09:45 14 119/72 03/13/25 09:00 14 03/13/25 08:14 36.7 C 03/13/25 07:35 36.3 C L 71 10 L 97/60 L 03/13/25 01:20 03/13/25 01:20 36.6 C 89 16 03/12/25 23:21 87 16 03/12/25 22:30 80 14 03/12/25 22:00 81 22 146/115 H 03/12/25 21:36 83 03/12/25 21:30 82 25 H 144/86 H BP Pulse Ox O2 Del Method O2 Flow Rate 03/13/25 17:36 122/71 98 Room Air 03/13/25 17:15 103/66 94 Room Air 03/13/25 17:05 108/66 95 Room Air 03/13/25 16:55 110/64 98 Oxymask 3 03/13/25 16:49 103/59 L 96 Oxymask 3 03/13/25 15:43 94 Room Air 03/13/25 12:20 Room Air 03/13/25 09:45 96 Room Air 03/13/25 09:00 106/65 03/13/25 08:14 95/61 L 03/13/25 07:35 97 Room Air 03/13/25 01:20 Room Air 03/13/25 01:20 156/87 H 98 Room Air 03/12/25 23:21 162/90 H 98 Room Air 03/12/25 22:30 97 03/12/25 22:00 97 03/12/25 21:36 03/12/25 21:30 98 Room Air Pain Intensity Right Foot: Pain Intensity: 6 Transfer of Care Handoff Completed per policy Notes Mental Status: alert / awake / arousable and participated in evaluation Patient Amnestic to Procedure: Yes Nausea / Vomiting: adequately controlled Pain: adequately controlled Airway Patency, RR, SpO2: stable & adequate BP & HR: stable & adequate Hydration State: stable & adequate Anesthetic Complications: no major complications apparent and Pt Satisfied with anesthetic care
[2025-03-14 07:47] LABS: Hematocrit (blood only) 35.5 % (42.0-52.0); Hemoglobin 11.5 g/dl (14.0-18.0); Mean Corpuscular Hemoglobin 26.0 pg (25.0-34.0); Mean Corpuscular Volume 80.3 fL (80.0-100.0); Platelet Count 142 K/uL (130-400); RDW Standard Deviation 42.0 fL (36.4-46.3); Red Blood Count 4.42 M/uL (4.70-6.10); White Blood Count 3.55 K/ul (4.8-10.8)
[2025-03-14 08:04] LABS: Anion Gap 3.0 (3-11); Blood Urea Nitrogen 17.0 mg/dl (6-23); Calcium 9.0 mg/dl (8.6-10.3); Carbon Dioxide 30.0 mmol/L (21-32); Chloride 106.0 mmol/L (98-107); Creatinine Clr Calc Pharmacy 73.6 ml/min; Glucose 174.0 mg/dl (70-99(Fasting)); Iron 35.0 mcg/dl (35-175); Potassium 4.3 mmol/L (3.5-5.1); Sodium 139.0 mmol/L (136-145); Total Iron Binding Cap Calc 263.0 mcg/dl (250-450); Transferrin 188.0 mg/dl (200-360); Transferrin (FE) Percent Satur 13.0 % (20-50)
[2025-03-14 08:23] LABS: Ferritin 80.3 ng/ml (8-388)
[2025-03-14] MEDS: VANCOMYCIN LEVEL ONE (08:36)
--- NOTE | 2025-03-14 08:39 | Hospitalist Progress Note ---
"Date of Service March 14, 2025 Assessment & Plan (1) Osteomyelitis: (2) Diabetic peripheral neuropathy associated with type 2 diabetes mellitus: (3) Urinary retention: Plan 59 y/o male with PMH of poorly controlled T2DM, diabetic peripheral neuropathy, HTN, hyperlipidemia, anxiety/depression, seizures, and history of treated right- sided cerebral AVM. He presented to the ED due to discoloration of his right fourth toe that he noticed turned black 2 days prior to admission. X-ray on admission revealed extensive acute osteomyelitis of the distal right fourth toe. He was admitted for management of such. #Osteomyelitis - right distal phalanx of the fourth toe - Patient with history of uncontrolled DM. Patient with right 4th toe ulceration. Noticed toe going black 2 days ago. Hx of osteomyelitis s/p amputation on right toe - Podiatry consulted - s/p right fourth toe amputation on 03/[address] Landers. EBL 5 cc. No complications noted. - Intraoperative right foot culture growing 2 species of Staph aureus, Gram stain not showing any gram-negatives - Continue Vancomycin IV. Zosyn IV now discontinued - Surgical pathology pending. Blood cultures negative x 24 hours - Will need PT/OT evaluations once nonweightbearing restriction is lifted #Urinary retention - patient reports this is an ongoing issue for him - Bladder scanned 1436 cc - Nolasco catheter placed on 03/13 - Start Flomax 0.4 mg daily #T2DM - Home regimen of Lantus 28 units daily; patient reports compliance - A1c remains significantly elevated at 13.6% - Previously on Jardiance - pt non complaint - Pharmacy consulted - Requires significant blood sugar control especially in setting of acute wound to promote healing #Microcytic anemia - mild, stable from previous - Iron panel most consistent with inflammatory anemia - Takes oral iron supplement - continue - Needs GI workup as an outpatient if not done previously #HTN - continue losartan and amlodipine - On aspirin, on HOLD for now in perioperative period #Insomnia - with difficulty falling asleep and staying asleep - Has tried melatonin without much benefit - Will try Benadryl 25 mg HS #Hypotonic hyponatremia | Pseudohyponatremia - Sodium on admission- 125, corrected sodium for hyperglycemia- 135. Serum osmolality normal, urine osmolality low - consistent with pseudohyponatremia - S/p 2 L NSS. Sodium improved and now WNL #Seizures - past history of right cerebral AVM - continue Keppra 1,00 BID and gabapentin #History of CKD - Creatinine baseline around 1.3 - Renal function at baseline. Avoid nephrotoxic agents when possible #Hyperlipidemia - continue statin #Anxiety - continue Lexapro DVT prophylaxis: SCDs Disposition: Pending PT/OT evaluations when NWB status is lifted Started Flomax Started Benadryl Discontinued Zosyn Discussed discharge planning with case management Admission and Anticipated Discharge Date Admission Date: March 12, 2025 Supervising Physician Co-Signing Physician Notes PA Supervision Note: I did not personally see or examine the patient today, but I verified all dunn points of RANDI Herrera's assessment and plan with the following exceptions/additions: None Subjective Patient seen and evaluated bedside. He reports feeling well overall. He denies any pain in his right foot. He has been well tolerating his diet. He does have difficulty sleeping at night. He is agreeable to trying melatonin at bedtime tonight. We discussed that PT and OT will evaluate him after Dr. Landers sees him and lifts his nonweightbearing restriction. He denies any headache, chest pain, shortness of breath, abdominal pain. No additional complaints or concerns at this time. Physical Exam Physical Exam: General: No acute distress, nondiaphoretic, well-developed, well-nourished. Skin: Warm, dry. No rashes or peripheral edema noted. Extremities: Right lower extremity wrapped in postop dressing with mild blood shadowing above amputated digit. Cardiac: Regular rate and rhythm without murmurs gallops or rubs. Pulm: Clear to auscultation bilaterally without wheezes, rales or rhonchi. Normal respiratory effort. 97% on room air. Abdominal: Soft, nontender, nondistended. Bowel sounds present. Neuro: A&O x3. No focal neurological deficits. Results & Data Results & Data Vital Signs (Past 12 Hours) Vital Signs Temp Pulse Resp BP Pulse Ox O2 Del Method 03/14/25 08:32 97.7 F 84 18 129/75 97 Room Air 03/14/25 04:30 97.5 F L 81 16 126/71 97 Room Air 03/14/25 00:30 97.3 F L 77 18 126/73 97 Room Air Laboratory Results Reviewed CBC Reviewed BMP Reviewed iron panel PG Care Time/CCT Total # of Minutes Spent Total Time Spent with Patient: Total time spent is greater than 50% in coordination of care (as documented) at patient's floor/unit and/or counseling patient: Coding Level of Care Code 79882 SUB INP/OBS CARE MIN Diagnoses Osteomyelitis M86.9 Diabetic peripheral neuropathy associated with type 2 diabetes mellitus E11.42 Urinary retention R33.9"
[2025-03-14] MEDS: LANTUS PER UNIT CHARGE SQ SCH (08:41)
[2025-03-14] MEDS: TAMSULOSIN HCL 0.4 MG CAP PO SCH (10:17)
--- NOTE | 2025-03-14 10:17 | Pharmacy Report ---
Pharmacy Glycemic Short Note 2 - Date of Service March 14, 2025 - Glycemic Short BSG Results (Last 24 hours): 03/13/25 03/13/25 03/13/25 11:55 16:50 17:32 Glucose POC Glucose 222 H 200 H 195 H 03/13/25 03/14/25 03/14/25 20:40 07:28 07:41 Glucose 174 H POC Glucose 236 H 166 H OUTPATIENT ANTIDIABETIC REGIMEN: * Lantus 28 units once daily ASSESSMENT: 03/14: * Faisal received 44 units of insulin yesterday (19 units basal + 25 units bolus) * Fasting BSG of 166 mg/dL is above goal but trending down nicely. Continue dose of Lantus 20 units already ordered for today. * Post prandial BSG elevation. Will tighten carb coverage. 03/13: * 59 year old admitted with toe osteomyelitis. Type 2 diabetic - pharmacy consulted for glycemic management. NPO this AM for possible intervention. Lantus 14 units (50%) given this AM for NPO status. BSG >200 fasting. Diet starting with dinner - will add on an additional Lantus 5 units with dinner. Plan to trial Lantus 20 units once daily starting tomorrow AM PLAN FOR INPATIENT GLYCEMIC CONTROL: * Hold outpatient oral diabetes medications * Basal insulin * Lantus 20 units daily * Bolus insulin * NovoLog per scale ACHS or Q6hrs while NPO * Goal Range: Low 110 mg/dL - High 140 mg/dL * Correction Factor: 20 mg/dL/unit * Nutritional / Prandial insulin per carb ratio of 1 unit per 7 grams CHO consumed
--- NOTE | 2025-03-14 10:21 | Pharmacy Report ---
Pharmacy PK ABX Note - Date of Service March 14, 2025 - Assessment and Plan Assessment 03/14: Random vanco level resulted at 14.8 mcg/mL this am with predicted AUC/DONNA at goal of 400-600. POD #1 s/p right fourth toe amputation. Duration of antibiotics to be determined following further discussion with Podiatry (amputation curative vs. need for ongoing antibiotics for residual infection). 03/13: 59 year old M receiving vancomycin and zosyn for toe osteomyelitis. Hx of osteom yelitis s/p amputation of right toe. NPO for possible intervention. Blood cultures pending. Plan Vancomycin * Continue 1000 mg IV every 12 hours * Regimen is predicted to achieve target AUC/DONNA of 400-600 mg/L.hr * est. steady state AUC/DONNA = 522 Pharmacy will continue to follow and will adjust dose/frequency as necessary. Thank you. Pharmacy has transitioned to AUC monitoring for vancomycin. AUC/DONNA is the preferred PK/PD target and is associated with decreased risk of nephrotoxicity compared to traditional trough targets.
[2025-03-14] MEDS: diphenhydrAMINE Capsule 25 MG CAP PO SCH (20:15)
--- NOTE | 2025-03-15 07:33 | Podiatry Progress Note ---
Date of Service March 15, 2025 Assessment & Plan (1) Status post amputation of lesser toe of right foot: (2) Diabetic peripheral neuropathy associated with type 2 diabetes mellitus: Plan Postop day 2 status post right fourth digit amputation. Wound edges well- approximated with all sutures intact. -Okay to begin weightbearing as tolerated in postop shoe to the right foot. - Intraoperative pathology 03/13/2025: Pending - Intraoperative tissue culture 03/13/2025: Preliminary growing Staph aureus Wound edges well-approximated with all sutures intact. No active bleeding from the surgical site. Patient is okay to begin weightbearing in postoperative shoe to the right foot as tolerated. As amputation was carried out at the proximal aspect of the proximal phalanx I would consider this a surgical cure for osteomyelitis which was noted on plain film radiographs to the distal phalanx of the right fourth toe. Pending sensitivities, patient okay to discharge from podiatry standpoint on p.o. antibiotics for continued coverage of Staph aureus. Patient should follow-up in the diabetic foot clinic within 2 weeks of discharge Admission and Anticipated Discharge Date Admission Date: March 12, 2025 Review of Systems Review of Systems: Patient denies nausea, vomiting, fever, chills, shortness of breath, chest pain. Denies pain in the right foot. All other systems reviewed and negative unless detailed in HPI. Physical Exam Physical Exam: Const: Appears well developed and well nourished. No signs of acute distress present. CV: Extremities: No cyanosis or edema. Capillary refill time is less than 2 seconds all digits of the bilateral foot. Posterior tibial and dorsalis pedis pulses are palpable bilateral. Lymph: No palpable or visible regional lymphadenopathy. Skin: No scars, rashes, lesions or ecchymosis. Neuro: Loss of protective sensation in the bilateral foot and ankle Psych: Mood/Affect: Mood is normal. Affect is normal. Cognition: Orientation is intact to person, place and time. Focused lower extremity musculoskeletal exam: Leg: No pain with compression of the calf muscle. Ankles: Normal to inspection and palpation. No swelling bilaterally. No tenderness bilaterally. Motor strength is intact. Range of motion pain-free and unlimited. Feet:No obvious instability. History of right hallux amputation with well-healed cicatrix. Status post amputation of the right fourth toe: Postop day 2. Wound edges well- approximated with all sutures intact. Scant sanguinous drainage to dressing. Results & Data Results & Data Vital Signs (Past 12 Hours) Vital Signs Temp Pulse Resp BP Pulse Ox O2 Del Method 03/14/25 23:29 37.1 C 89 18 146/78 H 96 Room Air 03/14/25 19:30 Room Air Coding Level of Care Code 87080 SUB INP/OBS CARE 07/29MIN Diagnoses Status post amputation of lesser toe of right foot Z89.421 Diabetic peripheral neuropathy associated with type 2 diabetes mellitus E11.42
[2025-03-15 08:09] LABS: Hematocrit (blood only) 34.8 % (42.0-52.0); Hemoglobin 11.4 g/dl (14.0-18.0); Mean Corpuscular Hemoglobin 26.4 pg (25.0-34.0); Mean Corpuscular Volume 80.6 fL (80.0-100.0); Platelet Count 150 K/uL (130-400); RDW Standard Deviation 41.6 fL (36.4-46.3); Red Blood Count 4.32 M/uL (4.70-6.10); White Blood Count 5.12 K/ul (4.8-10.8)
[2025-03-15 08:24] LABS: Creatinine Clr Calc Pharmacy 66.5 ml/min
--- NOTE | 2025-03-15 08:38 | Hospitalist Progress Note ---
"Date of Service March 15, 2025 Assessment & Plan (1) Osteomyelitis: (2) Diabetic peripheral neuropathy associated with type 2 diabetes mellitus: (3) Urinary retention: Plan 59 y/o male with PMH of poorly controlled T2DM, diabetic peripheral neuropathy, HTN, hyperlipidemia, anxiety/depression, seizures, and history of treated right- sided cerebral AVM. He presented to the ED due to discoloration of his right fourth toe that he noticed turned black 2 days prior to admission. X-ray on admission revealed extensive acute osteomyelitis of the distal right fourth toe. He was admitted for management of such. #Osteomyelitis - right distal phalanx of the fourth toe - Patient with history of uncontrolled DM. Patient with right 4th toe ulceration. Noticed toe going black 2 days ago. Hx of osteomyelitis s/p amputation on right toe - Podiatry consulted - s/p right fourth toe amputation on 03/[address] Landers. This was considered a surgical cure for osteomyelitis, but podiatry is recommending oral antibiotics for continued coverage of Staph aureus pending intraoperative tissue culture - Intraoperative right foot culture growing 2 species of MRSA, sensitive to tetracyclines, final sensitivities pending. Gram stain not showing any gram-negatives - Initially treated with vancomycin and Zosyn IV. Now transition to PO doxycycline BID - Surgical pathology pending. Blood cultures negative > 48 hours - PT/OT consulted - can WBAT with postop shoe to R foot #Urinary retention - patient reports this is an ongoing issue for him - Bladder scanned 1436 cc - Nolasco catheter placed on 03/13 - Start Flomax 0.4 mg daily -Will need a trial of void 1 week after discharge #T2DM - Home regimen of Lantus 28 units daily; patient reports compliance. Discovered that patient was dialing 2.8 units instead of 28 units of his insulin pen. - A1c remains significantly elevated at 13.6% - now that Roberto is aware of how to correctly dial his insulin pen, anticipate his blood sugar values to improve with the correct dose - Previously on Jardiance - discontinued as it was too expensive - Pharmacy consulted - Requires significant blood sugar control especially in setting of acute wound to promote healing. special education paraeducator met with patient and recommended discharge regimen. Plan to discharge on his current insulin pen of 28 units daily, metformin ER 750 mg daily. He is now set up with Dexcom for closer blood sugar monitoring #Microcytic anemia - mild, stable from previous - Iron panel most consistent with inflammatory anemia - Takes oral iron supplement - continue - Needs GI workup as an outpatient if not done previously #HTN - continue losartan and amlodipine - On aspirin, on HOLD for now in perioperative period #Insomnia - with difficulty falling asleep and staying asleep - Has tried melatonin without much benefit - Tried Benadryl 25 mg last night, no improvement. Will increase to 50 mg HS tonight #Hypotonic hyponatremia | Pseudohyponatremia - Sodium on admission- 125, corrected sodium for hyperglycemia- 135. Serum osmolality normal, urine osmolality low - consistent with pseudohyponatremia - S/p 2 L NSS. Sodium improved and now WNL #Seizures - past history of right cerebral AVM. Continue Keppra 1,00 BID and gabapentin #History of CKD - Creatinine baseline around 1.3. Renal function at baseline. Avoid nephrotoxic agents when possible #Hyperlipidemia - continue statin #Anxiety - continue Lexapro DVT prophylaxis: SCDs Disposition: Pending PT/OT evaluations Consulted PT/OT Discontinued vancomycin and started doxycycline Increased Benadryl Discussed diabetic regimen with DM educator Admission and Anticipated Discharge Date Admission Date: March 12, 2025 Supervising Physician Co-Signing Physician Notes PA Supervision Note: I did not personally see or examine the patient today, but I verified all dunn points of RANDI Herrera's assessment and plan with the following exceptions/additions: As patient is already on trazodone and is having insomnia, I would favor increasing the dose of trazodone 150 mg p.o. at bedtime rather than giving Benadryl-Will change for tonight. With regards to his infection and being on antibiotics, will check CBC and BMP in the morning Subjective Patient seen and evaluated at bedside. He denies any pain in his right foot. He has the postop surgical shoe on his right foot. We discussed that Dr. Landers has lifted his nonweightbearing restriction so PT and OT can evaluate him now to help determine his disposition. We also discussed switching his antibiotics from IV vancomycin to oral doxycycline. He again did not sleep well overnight. He denies any additional complaints or concerns at this time. Physical Exam Physical Exam: General: No acute distress, nondiaphoretic, well-developed, well-nourished. Skin: Warm, dry. No rashes or peripheral edema noted. Extremities: Right lower extremity in dressing and postoperative surgical shoe. Cardiac: Well-perfused. Rate in 70s. Pulm: Normal respiratory effort. 94% on room air. Neuro: A&O x3. No focal neurological deficits. Results & Data Results & Data Vital Signs (Past 12 Hours) Vital Signs Temp Pulse Resp BP Pulse Ox O2 Del Method 03/15/25 08:20 98.2 F 79 18 129/72 97 Room Air 03/14/25 23:29 98.8 F 89 18 146/78 H 96 Room Air Laboratory Results Reviewed CBC Reviewed chemistries Reviewed intraoperative tissue culture Reviewed intraoperative pathology Reviewed blood cultures PG Care Time/CCT Total # of Minutes Spent Total Time Spent with Patient: Total time spent is greater than 50% in coordination of care (as documented) at patient's floor/unit and/or counseling patient: Coding Level of Care Code 65208 SUB INP/OBS CARE 3/50MIN Diagnoses Osteomyelitis M86.9 Diabetic peripheral neuropathy associated with type 2 diabetes mellitus E11.42 Urinary retention R33.9"
[2025-03-15] MEDS: DOXYCYCLINE HYCLATE 100 MG CAP PO SCH (11:07)
[2025-03-15] MEDS ORDERED: diphenhydrAMINE Capsule 25 MG CAP PO SCH (21:00)
[2025-03-16] MEDS ORDERED: VANCOMYCIN LEVEL ONE (07:00)
[2025-03-16 07:53] LABS: Hematocrit (blood only) 36.8 % (42.0-52.0); Hemoglobin 12.4 g/dl (14.0-18.0); Immature Granulocytes # (auto) 0.02 K/uL (0.01-0.20); Immature Granulocytes % (auto) 0.5 %; Mean Corpuscular Hemoglobin 27.4 pg (25.0-34.0); Mean Corpuscular Volume 81.4 fL (80.0-100.0); Platelet Count 152 K/uL (130-400); RDW Standard Deviation 42.0 fL (36.4-46.3); Red Blood Count 4.52 M/uL (4.70-6.10); White Blood Count 3.76 K/ul (4.8-10.8)
[2025-03-16 08:08] LABS: Anion Gap 5.0 (3-11); Blood Urea Nitrogen 19.0 mg/dl (6-23); Calcium 9.3 mg/dl (8.6-10.3); Carbon Dioxide 31.0 mmol/L (21-32); Chloride 103.0 mmol/L (98-107); Creatinine Clr Calc Pharmacy 79.5 ml/min; Glucose 149.0 mg/dl (70-99(Fasting)); Potassium 4.6 mmol/L (3.5-5.1); Sodium 139.0 mmol/L (136-145)
--- NOTE | 2025-03-16 08:36 | Hospitalist Progress Note ---
"Date of Service March 16, 2025 Assessment & Plan (1) Osteomyelitis: (2) Diabetic peripheral neuropathy associated with type 2 diabetes mellitus: (3) Urinary retention: Plan 59 y/o male with PMH of poorly controlled T2DM, diabetic peripheral neuropathy, HTN, hyperlipidemia, anxiety/depression, seizures, and history of treated right- sided cerebral AVM. He presented to the ED due to discoloration of his right fourth toe that he noticed turned black 2 days prior to admission. X-ray on admission revealed extensive acute osteomyelitis of the distal right fourth toe. He was admitted for management of such. #Osteomyelitis - right distal phalanx of the fourth toe - History of uncontrolled DM. Right 4th toe ulceration; noticed toe going black 2 days prior to presenting to ED. Hx of osteomyelitis s/p amputation on right great toe - Podiatry consulted - s/p right fourth toe amputation on 03/[address] Landers. This was considered a surgical cure for osteomyelitis, but podiatry is recommending oral antibiotics for continued coverage of Staph aureus pending intraoperative tissue culture - Intraoperative right foot culture growing 2 species of MRSA, sensitive to tetracyclines, final sensitivities pending. Gram stain not showing any gram-negatives - Initially treated with vancomycin and Zosyn IV. Now transition to PO doxycycline BID - Surgical pathology proximal margin excision negative for osteomyelitis. Blood cultures negative > 48 hours - PT/OT consulted - can WBAT with postop shoe to R foot #Urinary retention - patient reports this is an ongoing issue for him - Bladder scanned 1436 cc - Nolasco catheter placed on 03/13 - Start Flomax 0.4 mg daily - Will need a trial of void 1 week after discharge #T2DM - Home regimen of Lantus 28 units daily; patient reports compliance. Disc overed that patient was dialing 2.8 units instead of 28 units of his insulin pen. - A1c remains significantly elevated at 13.6% - now that Roberto is aware of how to correctly dial his insulin pen, anticipate his blood sugar values to improve with the correct dose - Previously on Jardiance - discontinued as it was too expensive - Pharmacy consulted - Requires significant blood sugar control especially in setting of acute wound to promote healing. engraver flatware met with patient and recommended discharge regimen. Plan to discharge on his current insulin pen of 28 units daily, and start metformin ER 750 mg daily - will need Rx for this on discharge. He is now set up with Dexcom for closer blood sugar monitoring #Microcytic anemia - mild, stable from previous. Iron panel most consistent with inflammatory anemia - Continue oral iron supplement - Needs GI workup as an outpatient if not done previously #HTN - continue losartan and amlodipine. Aspirin now resumed #Insomnia - with difficulty falling asleep and staying asleep. Has tried melatonin without much benefit - Increased trazodone to 150 mg HS (previously on 100 mg) - improvement in sleep with this medication increase - continue #Hypotonic hyponatremia | Pseudohyponatremia - Sodium on admission- 125, corrected sodium for hyperglycemia- 135. Serum osmolality normal, urine osmolality low - consistent with pseudohyponatremia - S/p 2 L NSS. Sodium improved and now WNL #Seizures - past history of right cerebral AVM. Continue Keppra 1,00 BID and gabapentin #History of CKD - Creatinine baseline around 1.3. Renal function at baseline. Avoid nephrotoxic agents when possible #Hyperlipidemia - continue statin #Anxiety - continue Lexapro DVT prophylaxis: SCDs Disposition: Pending PT/OT evaluations but will likely need rehab placement. Case management following Resumed aspirin Admission and Anticipated Discharge Date Admission Date: March 12, 2025 Supervising Physician Co-Signing Physician Notes RANDI Supervision Note: I did not personally see or examine the patient today, but I verified all dunn points of RANDI Herrera's assessment and plan with the following exceptions/additions: Wound cultures now also growing Anaerococcus vaginalis which is an anaerobe-add Augmentin 875 mg p.o. twice daily to the doxycycline for MRSA and finish 7-day courses of both Subjective Patient seen and evaluated at bedside. He reports feeling well overall. He denies any pain in his right lower extremity at this time. He reports much better sleep last night after his Benadryl was increased. Still awaiting PT/OT evaluations. Case management has started working on rehab referrals in the meantime. No additional complaints or concerns at this time. Physical Exam Physical Exam: General: No acute distress, nondiaphoretic, well-developed, well-nourished. Skin: Warm, dry. No rashes or peripheral edema noted. Extremities: Right lower extremity in dressing and postoperative surgical shoe. Cardiac: Well-perfused. Rate in 80s. Pulm: Normal respiratory effort. 96% on room air. Neuro: A&O x3. No focal neurological deficits. Results & Data Results & Data Vital Signs (Past 12 Hours) Vital Signs Temp Pulse Resp BP BP Pulse Ox O2 Del Method 03/16/25 07:31 97.3 F L 84 16 143/81 H 96 Room Air 03/15/25 23:38 97.7 F 77 16 121/74 93 Room Air Laboratory Results Reviewed CBC with differential Reviewed BMP Reviewed intraoperative tissue culture Reviewed blood cultures PG Care Time/CCT Total # of Minutes Spent Total Time Spent with Patient: Total time spent is greater than 50% in coordination of care (as documented) at patient's floor/unit and/or counseling patient: Coding Level of Care Code 16454 SUB INP/OBS CARE 2/35MIN Diagnoses Osteomyelitis M86.9 Diabetic peripheral neuropathy associated with type 2 diabetes mellitus E11.42 Urinary retention R33.9"
--- NOTE | 2025-03-16 11:37 | Podiatry Progress Note ---
Date of Service March 16, 2025 Assessment & Plan (1) Status post amputation of lesser toe of right foot: (2) Diabetic peripheral neuropathy associated with type 2 diabetes mellitus: Plan Postop day 3 status post right fourth digit amputation. Wound edges well- approximated with all sutures intact. -Okay to continue weightbearing as tolerated in postop shoe to the right foot. - Intraoperative pathology 03/13/2025: Pending - Intraoperative tissue culture 03/13/2025: Preliminary growing MRSA. Sensitivities pending Wound edges well-approximated with all sutures intact. No active bleeding from the surgical site. Patient is okay to continue weightbearing in postoperative shoe to the right foot as tolerated. Pending sensitivities, patient okay to discharge from podiatry standpoint on p.o. antibiotics for continued coverage. Patient should follow-up in the diabetic foot clinic within 2 weeks of discharge Admission and Anticipated Discharge Date Admission Date: March 12, 2025 Subjective Patient seen resting comfortably in hospital bed having just finished lunch. Denies pain in the right foot. Dressing remains clean dry and intact. He reports use of the postop shoe for short distance and transfer. Denies nausea vomiting fever chills. Review of Systems Review of Systems: Patient denies nausea, vomiting, fever, chills, shortness of breath, chest pain. Denies pain in the right foot. All other systems reviewed and negative unless detailed in HPI. Physical Exam Physical Exam: Const: Appears well developed and well nourished. No signs of acute distress present. CV: Extremities: No cyanosis or edema. Capillary refill time is less than 2 seconds all digits of the bilateral foot. Posterior tibial and dorsalis pedis pulses are palpable bilateral. Lymph: No palpable or visible regional lymphadenopathy. Skin: No scars, rashes, lesions or ecchymosis. Neuro: Loss of protective sensation in the bilateral foot and ankle Psych: Mood/Affect: Mood is normal. Affect is normal. Cognition: Orientation is intact to person, place and time. Focused lower extremity musculoskeletal exam: Leg: No pain with compression of the calf muscle. Ankles: Normal to inspection and palpation. No swelling bilaterally. No tenderness bilaterally. Motor strength is intact. Range of motion pain-free and unlimited. Feet:No obvious instability. History of right hallux amputation with well-healed cicatrix. Status post amputation of the right fourth toe: Postop day 3. Wound edges well- approximated with all sutures intact. Scant sanguinous drainage to dressing. Results & Data Results & Data Vital Signs (Past 12 Hours) Vital Signs Temp Pulse Resp BP BP Pulse Ox O2 Del Method 03/16/25 08:33 Room Air 03/16/25 07:31 36.3 C L 84 16 143/81 H 96 Room Air 03/15/25 23:38 36.5 C 77 16 121/74 93 Room Air Coding Level of Care Code 90633 SUB INP/OBS CARE 2/35MIN Diagnoses Status post amputation of lesser toe of right foot Z89.421 Diabetic peripheral neuropathy associated with type 2 diabetes mellitus E11.42
[2025-03-16] MEDS: AMOXICILLIN/CLAVULANATE 875 MG TAB PO SCH (17:43)
[2025-03-17] MEDS: ASPIRIN 81 MG ECTAB PO SCH (10:03)
--- NOTE | 2025-03-17 11:39 | Hospitalist Progress Note ---
"Date of Service March 17, 2025 Assessment & Plan (1) Osteomyelitis: (2) Diabetic peripheral neuropathy associated with type 2 diabetes mellitus: (3) Urinary retention: Plan 59 y/o male with PMH of poorly controlled T2DM, diabetic peripheral neuropathy, HTN, hyperlipidemia, anxiety/depression, seizures, and history of treated right- sided cerebral AVM. He presented to the ED due to discoloration of his right fourth toe that he noticed turned black 2 days prior to admission. X-ray on admission revealed extensive acute osteomyelitis of the distal right fourth toe. He was admitted for management of such. #Osteomyelitis - right distal phalanx of the fourth toe - History of uncontrolled DM. Right 4th toe ulceration; noticed toe going black 2 days prior to presenting to ED. Hx of osteomyelitis s/p amputation on right great toe - Podiatry consulted - s/p right fourth toe amputation on 03/[address] Landers. This was considered a surgical cure for osteomyelitis, but podiatry is recommending oral antibiotics for continued coverage of intraoperative tissue culture - Intraoperative right foot culture growing 2 species of MRSA, and Anaerococcus vaginalis - Initially treated with vancomycin and Zosyn IV. Now transitioned to doxycycline 100 mg BID and started on Augmentin 875 BID to cover anaerobe. Will need 7 day course of MRSA and anaerobe coverage post-surgery, thus continue doxycycline through 03/19 and Augmentin through 03/23 (started on 03/16) - Surgical pathology proximal margin excision negative for osteomyelitis. Blood cultures negative > 48 hours - PT/OT consulted - recommending rehab. Can WBAT with postop shoe to R foot #Urinary retention - patient reports this is an ongoing issue for him - Bladder scanned 1436 cc - Nolasco catheter placed on 03/13 - Start Flomax 0.4 mg daily - Will need a trial of void in 1 week-around 03/20 #T2DM - Home regimen of Lantus 28 units daily; patient reports compliance. Discovered that patient was dialing 2.8 units instead of 28 units of his insulin pen. - A1c remains significantly elevated at 13.6% - now that Roberto is aware of how to correctly dial his insulin pen, anticipate his blood sugar values to improve with the correct dose - Previously on Jardiance - discontinued as it was too expensive - Pharmacy consulted - Requires significant blood sugar control especially in setting of acute wound to promote healing. clinical staff educator met with patient and recommended discharge regimen. Plan to discharge on his current insulin pen of 28 units daily, and start metformin ER 750 mg daily - will need Rx for this on discharge. He is now set up with Dexcom for closer blood sugar monitoring #Microcytic anemia - mild, stable from previous. Iron panel most consistent with inflammatory anemia - Continue oral iron supplement - Needs GI workup as an outpatient if not done previously #Insomnia - with difficulty falling asleep and staying asleep. Has tried melatonin without much benefit - Increased trazodone to 150 mg HS (previously on 100 mg) - improvement in sleep with this medication increase - continue #Hypotonic hyponatremia | Pseudohyponatremia - Sodium on admission- 125, corrected sodium for hyperglycemia- 135. Serum osmolality normal, urine osmolality low - consistent with pseudohyponatremia - S/p 2 L NSS. Sodium improved and now WNL #HTN - continue losartan, amlodipine, aspirin #Seizures - past history of right cerebral AVM. Continue Keppra 1,00 BID and gabapentin #History of CKD - Creatinine baseline around 1.3. Renal function at baseline. Avoid nephrotoxic agents when possible #Hyperlipidemia - continue statin #Anxiety - continue Lexapro DVT prophylaxis: SCDs Disposition: Awaiting rehab placement. Case management following Outpatient follow-ups: Needs follow-up in the diabetic foot clinic within 2 weeks of discharge. Recommend outpatient GI workup for microcytic anemia. Started Augmentin Admission and Anticipated Discharge Date Admission Date: March 12, 2025 Supervising Physician Co-Signing Physician Notes RANDI Supervision Note: I did not personally see or examine the patient today, but I verified all dunn points of RANDI Herrera's assessment and plan with the following exceptions/additions: Follow CBC, BMP every other day while in the hospital and on antibiotics. Subjective Patient seen and evaluated at bedside. He reports feeling well and has no acute complaints or concerns at this time. He confirms that he wears his postoperative surgical shoe when ambulating. He is excited to watch the [employer] football game later this afternoon. We discussed his intraoperative culture growing an anaerobe and therefore starting Augmentin in addition to his ongoing doxycycline for MRSA. Continuing to wait for rehab placement. He understands that rehab placement over the weekend may not happen. Physical Exam Physical Exam: General: No acute distress, nondiaphoretic, well-developed, well-nourished. Skin: Warm, dry. No rashes or peripheral edema noted. Extremities: Right lower extremity in dressing. Postoperative surgical shoe at bedside. Cardiac: Well-perfused. Rate in 80s. Pulm: Normal respiratory effort. 96% on room air. : Nolasco draining clear yellow urine. Neuro: A&O x3. No focal neurological deficits. Results & Data Results & Data Vital Signs (Past 12 Hours) Vital Signs Temp Pulse Resp BP Pulse Ox O2 Del Method 03/17/25 07:10 98.6 F 95 H 16 114/75 93 Room Air Laboratory Results Reviewed intraoperative culture Reviewed blood cultures PG Care Time/CCT Total # of Minutes Spent Total Time Spent with Patient: Total time spent is greater than 50% in coordination of care (as documented) at patient's floor/unit and/or counseling patient: Coding Level of Care Code 47798 SUB INP/OBS CARE 3/50MIN Diagnoses Osteomyelitis M86.9 Diabetic peripheral neuropathy associated with type 2 diabetes mellitus E11.42 Urinary retention R33.9"
[2025-03-18 07:35] LABS: Hematocrit (blood only) 35.3 % (42.0-52.0); Hemoglobin 11.4 g/dl (14.0-18.0); Immature Granulocytes # (auto) 0.02 K/uL (0.01-0.20); Immature Granulocytes % (auto) 0.5 %; Mean Corpuscular Hemoglobin 25.9 pg (25.0-34.0); Mean Corpuscular Volume 80.0 fL (80.0-100.0); Platelet Count 160 K/uL (130-400); RDW Standard Deviation 39.6 fL (36.4-46.3); Red Blood Count 4.41 M/uL (4.70-6.10); White Blood Count 3.69 K/ul (4.8-10.8)
[2025-03-18 08:18] LABS: Anion Gap 4.0 (3-11); Blood Urea Nitrogen 27.0 mg/dl (6-23); Calcium 8.9 mg/dl (8.6-10.3); Carbon Dioxide 30.0 mmol/L (21-32); Chloride 96.0 mmol/L (98-107); Creatinine Clr Calc Pharmacy 80.9 ml/min; Glucose 143.0 mg/dl (70-99(Fasting)); Potassium 4.3 mmol/L (3.5-5.1); Sodium 130.0 mmol/L (136-145)
--- NOTE | 2025-03-18 13:55 | Hospitalist Progress Note ---
Date of Service March 18, 2025 Assessment & Plan (1) Osteomyelitis: (2) Diabetic peripheral neuropathy associated with type 2 diabetes mellitus: (3) Urinary retention: Plan 59 y/o male with PMH of poorly controlled T2DM, diabetic peripheral neuropathy, HTN, hyperlipidemia, anxiety/depression, seizures, and history of treated right- sided cerebral AVM. He presented to the ED due to discoloration of his right fourth toe that he noticed turned black 2 days prior to admission. X-ray on admission revealed extensive acute osteomyelitis of the distal right fourth toe. He was admitted for management of such. #Osteomyelitis - right distal phalanx of the fourth toe - History of uncontrolled DM. Right 4th toe ulceration; noticed toe going black 2 days prior to presenting to ED. Hx of osteomyelitis s/p amputation on right great toe - Podiatry consulted - s/p right fourth toe amputation on 03/[address] Landers. This was considered a surgical cure for osteomyelitis, but podiatry is recommending oral antibiotics for continued coverage of intraoperative tissue culture - Intraoperative right foot culture growing 2 species of MRSA, and Anaerococcus vaginalis - Initially treated with vancomycin and Zosyn IV. Now transitioned to doxycycline 100 mg BID and started on Augmentin 875 BID to cover anaerobe. Will need 7 day course of MRSA and anaerobe coverage post-surgery, thus continue doxycycline through 03/19 and Augmentin through 03/23 (started on 03/16) - Surgical pathology proximal margin excision negative for osteomyelitis. Blood cultures negative > 48 hours - PT/OT consulted - recommending rehab. Can WBAT with postop shoe to R foot #Urinary retention - patient reports this is an ongoing issue for him - Bladder scanned 1436 cc - Nolasco catheter placed on 03/13 - Start Flomax 0.4 mg daily - Will need a trial of void in 1 week, around 03/20 #T2DM - Home regimen of Lantus 28 units daily; patient reports compliance. Discovered that patient was dialing 2.8 units instead of 28 units of his insulin pen. - A1c remains significantly elevated at 13.6% - now that Roberto is aware of how to correctly dial his insulin pen, anticipate his blood sugar values to improve with the correct dose - Previously on Jardiance - discontinued as it was too expensive - Pharmacy consulted - Requires significant blood sugar control especially in setting of acute wound to promote healing. furnace fitter met with patient and recommended discharge regimen. Plan to discharge on his current insulin pen of 28 units daily, and start metformin ER 750 mg daily - will need Rx for this on discharge. He is now set up with Dexcom for closer blood sugar monitoring #Microcytic anemia - mild, stable from previous. Iron panel most consistent with inflammatory anemia - Continue oral iron supplement - Needs GI workup as an outpatient if not done previously #Insomnia - with difficulty falling asleep and staying asleep. Has tried melatonin without much benefit - Increased trazodone to 150 mg HS (previously on 100 mg) - improvement in sleep with this medication increase - continue #Hypotonic hyponatremia | Pseudohyponatremia - Sodium on admission- 125, corrected sodium for hyperglycemia- 135. Serum osmolality normal, urine osmolality low - consistent with pseudohyponatremia - S/p 2 L NSS. Sodium improved, mildly low again today 03/18 at 130, will monitor -Check urine sodium and urine osmolality - Will give 1 L normal saline #HTN - continue losartan, amlodipine, aspirin #Seizures - past history of right cerebral AVM. Continue Keppra 1,00 BID and gabapentin #History of CKD - Creatinine baseline around 1.3. Renal function at baseline. Avoid nephrotoxic agents when possible #Hyperlipidemia - continue statin #Anxiety - continue Lexapro DVT prophylaxis: SCDs Disposition: Awaiting rehab placement. Case management following Outpatient follow-ups: Needs follow-up in the diabetic foot clinic within 2 weeks of discharge. Recommend outpatient GI workup for microcytic anemia. Admission and Anticipated Discharge Date Admission Date: March 12, 2025 Supervising Physician Co-Signing Physician Notes RANDI Supervision Note: I did not personally see or examine the patient today, but I verified all dunn points of RANDI Herrera's assessment and plan with the following exceptions/additions: None Subjective Patient seen and evaluated in bedside chair. He reports feeling well overall, noting "today is the same old same old." He is sleeping well at night and has a strong appetite. He denies any pain in his RLE. No acute complaints or concerns at this time. Physical Exam Physical Exam: General: No acute distress, nondiaphoretic, well-developed, well-nourished. Skin: Warm, dry. No rashes or peripheral edema noted. Extremities: Right lower extremity in dressing and postoperative surgical shoe. Cardiac: Well-perfused. Rate in 80s. Pulm: Normal respiratory effort. 96% on room air. : Nolasco draining clear yellow urine. Neuro: A&O x3. No focal neurological deficits. Results & Data Results & Data Vital Signs (Past 12 Hours) Vital Signs Temp Pulse Resp BP Pulse Ox O2 Del Method 03/18/25 07:56 97.5 F L 82 16 119/75 96 Room Air Laboratory Results Reviewed CBC with differential Reviewed BMP PG Care Time/CCT Total # of Minutes Spent Total Time Spent with Patient: Total time spent is greater than 50% in coordination of care (as documented) at patient's floor/unit and/or counseling patient: Coding Level of Care Code 17572 SUB INP/OBS CARE 2/35MIN Diagnoses Osteomyelitis M86.9 Diabetic peripheral neuropathy associated with type 2 diabetes mellitus E11.42 Urinary retention R33.9
--- NOTE | 2025-03-18 14:58 | Pharmacy Report ---
Pharmacy Glycemic Short Note 2 - Date of Service March 18, 2025 - Glycemic Short BSG Results (Last 24 hours): 03/17/25 03/17/25 03/18/25 16:26 20:19 07:01 Glucose 143 H POC Glucose 244 H 189 H 03/18/25 03/18/25 07:47 11:18 Glucose POC Glucose 144 H 250 H OUTPATIENT ANTIDIABETIC REGIMEN: * Lantus 28 units once daily ASSESSMENT: 03/18: * Patient received total of 47 units of insulin yesterday, of which 20 units were basal insulin * Fasting BSG 143 mg/dL - continue same basal * BSGs above goal range yesterday, will tighten CF and CR today 03/14: * Faisal received 44 units of insulin yesterday (19 units basal + 25 units bolus) * Fasting BSG of 166 mg/dL is above goal but trending down nicely. Continue dose of Lantus 20 units already ordered for today. * Post prandial BSG elevation. Will tighten carb coverage. 03/13: * 59 year old admitted with toe osteomyelitis. Type 2 diabetic - pharmacy consulted for glycemic management. NPO this AM for possible intervention. Lantus 14 units (50%) given this AM for NPO status. BSG >200 fasting. Diet starting with dinner - will add on an additional Lantus 5 units with dinner. Plan to trial Lantus 20 units once daily starting tomorrow AM PLAN FOR INPATIENT GLYCEMIC CONTROL: * Hold outpatient oral diabetes medications * Basal insulin * Lantus 20 units daily * Bolus insulin * NovoLog per scale ACHS or Q6hrs while NPO * Goal Range: Low 110 mg/dL - High 140 mg/dL * Correction Factor: 15 mg/dL/unit * Nutritional / Prandial insulin per carb ratio of 1 unit per 6 grams CHO consumed
[2025-03-18] MEDS: SODIUM CHLORIDE 0.9% 1,000 ML IV SCH (19:57)
[2025-03-18 23:01] VITALS: O2SAT 97
[2025-03-19 07:19] VITALS: BP 119/71; PULSE 83; RESP 17; TEMP 97.5
[2025-03-19 10:50] LABS: Hematocrit (blood only) 36.2 % (42.0-52.0); Hemoglobin 12.3 g/dl (14.0-18.0); Mean Corpuscular Hemoglobin 27.2 pg (25.0-34.0); Mean Corpuscular Volume 79.9 fL (80.0-100.0); Platelet Count 169 K/uL (130-400); RDW Standard Deviation 39.5 fL (36.4-46.3); Red Blood Count 4.53 M/uL (4.70-6.10); White Blood Count 3.90 K/ul (4.8-10.8)
[2025-03-19 11:05] LABS: Anion Gap 6.0 (3-11); Blood Urea Nitrogen 28.0 mg/dl (6-23); Calcium 9.3 mg/dl (8.6-10.3); Carbon Dioxide 28.0 mmol/L (21-32); Chloride 98.0 mmol/L (98-107); Creatinine Clr Calc Pharmacy 69.1 ml/min; Glucose 195.0 mg/dl (70-99(Fasting)); Potassium 4.4 mmol/L (3.5-5.1); Sodium 132.0 mmol/L (136-145)
--- NOTE | 2025-03-19 12:51 | Podiatry Progress Note ---
Date of Service March 19, 2025 Assessment & Plan (1) Status post amputation of lesser toe of right foot: (2) Diabetic peripheral neuropathy associated with type 2 diabetes mellitus: Plan Status post right fourth digit amputation 03/13/2025. Wound edges well- approximated with all sutures intact. -Okay to continue weightbearing as tolerated in postop shoe to the right foot. - Intraoperative pathology 03/13/2025: proximal margin bone negative for osteomyelitis - Intraoperative tissue culture 03/13/2025: Preliminary growing MRSA resist to erythromycin and oxacillin. Wound edges well-approximated with all sutures intact. No active bleeding from the surgical site. Patient is okay to continue weightbearing in postoperative shoe to the right foot as tolerated. Pending sensitivities, patient okay to discharge from podiatry standpoint on p.o. antibiotics for continued coverage. Patient should follow-up in the diabetic foot clinic within 2 weeks of discharge Admission and Anticipated Discharge Date Admission Date: March 12, 2025 Results & Data Results & Data Vital Signs (Past 12 Hours) Vital Signs Temp Pulse Resp BP Pulse Ox O2 Del Method 03/19/25 08:00 Room Air 03/19/25 07:18 36.4 C L 83 17 119/71 97 Room Air Coding Diagnoses Status post amputation of lesser toe of right foot Z89.421 Diabetic peripheral neuropathy associated with type 2 diabetes mellitus E11.42
--- NOTE | 2025-03-19 14:42 | Discharge Summary ---
"Discharge Summary Date of Service March 19, 2025 Principal Dx & Hospital Course #1 = Principal Diagnosis (1) Osteomyelitis: (2) Diabetic peripheral neuropathy associated with type 2 diabetes mellitus: (3) Urinary retention: Plan 59 y/o male with PMH of poorly controlled T2DM, diabetic peripheral neuropathy, HTN, hyperlipidemia, anxiety/depression, seizures, and history of treated right- sided cerebral AVM. He presented to the ED due to discoloration of his right fourth toe that he noticed turned black 2 days prior to admission. X-ray on admission revealed extensive acute osteomyelitis of the distal right fourth toe. He was admitted for management of such. #Osteomyelitis - right distal phalanx of the fourth toe - History of uncontrolled DM. Right 4th toe ulceration; noticed toe going black 2 days prior to presenting to ED. Hx of osteomyelitis s/p amputation on right great toe - Podiatry consulted - s/p right fourth toe amputation on 03/[address] Landers. This was considered a surgical cure for osteomyelitis, but podiatry is recommending oral antibiotics for continued coverage of intraoperative tissue culture - Intraoperative right foot culture growing 2 species of MRSA, and Anaerococcus vaginalis - Initially treated with vancomycin and Zosyn IV. Then transitioned to doxycycline 100 mg BID and Augmentin 875 BID to cover anaerobe. Completed 7-day course of doxycycline on 03/19. Continue Augmentin through 03/23 (started on 03/16) - Surgical pathology proximal margin excision negative for osteomyelitis. Blood cultures negative, finalized - PT/OT consulted - recommendedrehab. Can WBAT with postop shoe to R foot #Urinary retention - patient reports this is an ongoing issue for him - Bladder scanned 1436 cc - Nolasco catheter placed on 03/13 - Start Flomax 0.4 mg daily - Will need a trial of void in 1 week, around 03/20 - informed SNF of this on discharge #T2DM - Home regimen of Lantus 28 units daily; patient reports compliance. Discovered that patient was dialing 2.8 units instead of 28 units of his insulin pen. - A1c remains significantly elevated at 13.6% - now that Roberto is aware of how to correctly dial his insulin pen, anticipate his blood sugar values to improve with the correct dose - Previously on Jardiance - discontinued as it was too expensive - Pharmacy consulted - Requires significant blood sugar control especially in setting of acute wound to promote healing. womens volleyball coach met with patient and recommended discharge regimen. Discharged on his current insulin pen of 28 units daily, and started metformin ER 750 mg daily. He is now set up with Dexcom for closer blood sugar monitoring. Anticipate significant improvement in his A1c now that his correct insulin dosing has been addressed. #Microcytic anemia - mild, stable from previous. Iron panel most consistent with inflammatory anemia - Continue oral iron supplement - Needs GI workup as an outpatient if not done previously #Insomnia - with difficulty falling asleep and staying asleep. Has tried melatonin without much benefit - Increased trazodone to 150 mg HS (previously on 100 mg) - improvement in sleep with this medication increase #Hypotonic hyponatremia | Pseudohyponatremia - Sodium on admission- 125, corrected sodium for hyperglycemia- 135. Serum osmolality normal, urine osmolality low - consistent with pseudohyponatremia - S/p 2 L NSS. Sodium improved, mildly low again 03/18 at 130 - given 1 L NSS, will monitor - Urine sodium 28 and urine osmolality low at 157 - Sodium improved to 132 on 03/19 following 1 L NSS day prior. Recommend repeating BMP in 2-3 days to monitor hyponatremia #HTN - continue losartan, amlodipine, aspirin #Seizures - past history of right cerebral AVM. Continue Keppra 1,00 BID and gabapentin #History of CKD - Creatinine baseline around 1.3. Renal function at baseline. Avoid nephrotoxic agents when possible #Hyperlipidemia - continue statin #Anxiety - continue Lexapro DVT prophylaxis: SCDs Disposition: Discharged to [facility] 03/19 Outpatient follow-ups: Needs follow-up in the diabetic foot clinic within 2 weeks of discharge. Recommend outpatient GI workup for microcytic anemia. Notes For Next Care Provider Repeat BMP in 2-3 days to monitor hyponatremia. Monitor for urinary retention. Recommend GI workup for microcytic anemia. Needs to follow-up with diabetic foot clinic within 2 weeks of discharge. Medication Changes From Visit Augmentin twice daily through 03/23 Flomax 0.4 mg daily Metformin 750 mg daily Admission HPI Per Admitting Provider 59 y/o male with PMH of HTN, DM2, anxiety/depression, seizures here due to acute right fourth toe osteomyelitis. Patient have history of diabetes, on Lantus 23units. Patient states he is complaint to medications. He noticed the toe turned black two days ago. Denied any pain to the toe. Denied any trauma. Denied any fevers, any chills. Denied any chest pain, SOB, palpitations. Denied any abdominal pain, nausea or vomiting. He was discharge from hospital on 12/2024 to SNF due to seizures. Denied any recent seizures. Ed course: placed on IV zosyn/ IV vancomycin. 1 L NSS Discharge Exam General: No acute distress, nondiaphoretic, well-developed, well-nourished. Skin: Warm, dry. No rashes or peripheral edema noted. Extremities: Right lower extremity in dressing and postoperative surgical shoe. Cardiac: Regular rate and rhythm without murmurs gallops or rubs. Pulm: Clear to auscultation bilaterally without wheezes, rales or rhonchi. Normal respiratory effort. 97% on room air. Abdominal: Soft, nontender, nondistended. Bowel sounds present. : Nolasco draining clear yellow urine. Neuro: A&O x3. No focal neurological deficits. Discharge Plan Discharge Items Patient Disposition: Transfer [facility] Reason For Visit: OSTEOMYELITIS Discharge Diagnosis: Osteomyelitis s/p right fourth toe amputation Urinary retention Condition on Discharge: Serious Activity: Per Instructions section Non-emergency contact: Primary Care Provider and Surgeon Call non-emergency contact if: you have any medication questions and your symptoms worsen Follow-up/Referrals: Major Landers DPM [Surgeon] - (Follow-up in 2 weeks) David Nicole MD [Primary Care Provider] - (Follow-up in 1-2 weeks) Diet: Carb Consistent or DM2 Addtl Attending Provider Instructions: Mr. Ghosh, You were admitted to the hospital due to osteomyelitis of your right fourth toe. You had this amputated by Dr. Landers on 03/13 and tolerated this surgery well wit h no complications. Your A1c was also found to still be significantly elevated at 13.6% which is an average blood sugar of 344. It was discovered that your insulin pen was only dispensing approximately 3 units of insulin, instead of the 28 units you are supposed to take daily. Now that this has been addressed, anticipate your A1c will dramatically improve. Upon discharge from the hospital: * Take Augmentin (oral antibiotic) twice daily through 03/23. This is to complete your antibiotic course for your toe infection. It is important to finish this course of antibiotics even if you feel better. Not finishing the antibiotics can result in the infection returning and/or can make future infections harder to treat. * You can use Tylenol as needed for pain. * Continue your insulin pen with 28 units daily. * Start metformin 750 mg daily. * You were started on Flomax 0.4 mg daily. This is to help with your urinary retention. * Continue your other home medications as prescribed. * Follow-up with Dr. Landers in 2 weeks. * Follow-up with your PCP in 1-2 weeks. FOR MONET: * Check BMP in 2-3 days to monitor hyponatremia. * Remove Nolasco catheter tomorrow 03/20 for a voiding trial. Nolasco was placed on 03/13 after bladder scan revealed >1400 cc of urinary retention. Pending Studies at Discharge: No Stand-Alone Forms: My [facility] Skilled Items Patient informed of condition?: Yes DNR: No Discharge Level of Care: Skilled Communicable Disease: No Discharge Prognosis: Stable Lines: None Urinary Catheter: Yes Medications and DC Order Prescriptions: New tamsulosin 0.4 mg Capsule 0.4 mg PO QAM 30 Days Qty: 30 0RF amoxicillin-pot clavulanate 875-125 mg Tablet 1 tab PO BIDM Qty: 8 0RF metformin 750 mg tablet 750 mg PO DAILY Qty: 30 0RF Continued aspirin 81 mg Capsule 81 mg PO DAILY atorvastatin 80 mg tablet 80 mg PO HS zinc acetate 50 mg (zinc) Capsule 50 mg PO DAILY ascorbic acid (vitamin C) [Vitamin C] 500 mg Tablet 500 mg PO BID gabapentin 300 mg capsule 300 mg PO TID diclofenac sodium 1 % Gel 4 g TOPICAL TID PRN (Reason: Pain) acetaminophen 325 mg Tablet 650 mg PO DAILY levetiracetam [Keppra] 500 mg Tablet 1,000 mg PO BID docusate sodium 50 mg Capsule 50 mg PO DAILY amlodipine 5 mg Tablet 5 mg PO DAILY trazodone 100 mg Tablet 100 mg PO HS nortriptyline 10 mg Capsule 10 mg PO HS losartan 25 mg Tablet 25 mg PO DAILY calcium carbonate 500 mg calcium (1,250 mg) Tablet,Chewable 500 mg PO DAILY senna 8.6 mg Capsule 8.6 mg PO HS escitalopram oxalate [Lexapro] 10 mg Tablet 10 mg PO DAILY insulin glargine [Lantus U-100 Insulin] 100 unit/mL Solution 28 unit subcut QAM Qty: 10 0RF ferrous gluconate 324 mg (38 mg iron) Tablet 324 mg PO BIDM Qty: 30 0RF Discharge Orders: Discharge Order (Routine); Ordered 03/19/25 Ordered By: Abby Herrera Admission Data Admit Date/Time: 03/12/25 21:12 Attending Provider: Marilu Camejo Admit Provider: Clint Huizar Primary Care Provider: David Nicole Other Providers: Jonnathan Lucero; Major Landers; Tania Echeverria [facility]; [facility] Other Interventions: Discharge Summary Assessment (RN) Last Done: 03/19/25 14:43 Hospital Stay Data Consultations 03/12/25 19:48 ED Decision to Admit Stat 03/13/25 00:30 Consult Podiatry Routine Procedures Performed Operation Date: 03/13/25 09:30 Actual Procedures p Right Fourth Toe Amputation(Right) - Major Landers DPM Diagnostic Imagining Performed Toe X-Ray 03/12/25 16:19 Exam: X-ray right toes limited to the right fourth toe. Reason for exam: Fourth digit toe ulceration. Previous studies: None FINDINGS: There is marked soft tissue swelling. There is active bone destruction of the distal phalanx consistent with acute osteomyelitis and overlying soft tissue ulceration. The middle and proximal phalanges appear intact at this time. IMPRESSION: Extensive acute osteomyelitis involving the distal phalanx of the right fourth toe. Electronically signed by Nixon Art 03-12-2025 6:59 PM Pending Results Patient Have Any Pending Studies at Discharge: No Discharge Instructions Given to Patient (Per Discharging Provider) Mr. Ghosh, Christos were admitted to the hospital due to osteomyelitis of your right fourth toe. You had this amputated by Dr. Landers on 03/13 and tolerated this surgery well with no complications. Your A1c was also found to still be significantly elevated at 13.6% which is an average blood sugar of 344. It was discovered that your insulin pen was only dispensing approximately 3 units of insulin, instead of the 28 units you are supposed to take daily. Now that this has been addressed, anticipate your A1c will dramatically improve. Upon discharge from the hospital: * Take Augmentin (oral antibiotic) twice daily through 03/23. This is to complete your antibiotic course for your toe infection. It is important to finish this course of antibiotics even if you feel better. Not finishing the antibiotics can result in the infection returning and/or can make future infections harder to treat. * You can use Tylenol as needed for pain. * Continue your insulin pen with 28 units daily. * Start metformin 750 mg daily. * You were started on Flomax 0.4 mg daily. This is to help with your urinary retention. * Continue your other home medications as prescribed. * Follow-up with Dr. Landers in 2 weeks. * Follow-up with your PCP in 1-2 weeks. FOR MONET: * Check BMP in 2-3 days to monitor hyponatremia. * Remove Nolasco catheter tomorrow 03/20 for a voiding trial. Nolasco was placed on 03/13 after bladder scan revealed >1400 cc of urinary retention. Supervising Physician Co-Signing Physician Notes RANDI Supervision Note: I did not personally see or examine the patient today, but I verified all dunn points of RANDI Herrera's assessment and plan with the following exceptions/additions: None Total Time Total Time Spent Total Time Spent (In Minutes): Greater than 30 minutes spent completing this discharge process including direct patient care, medication reconciliation, documentation, review of labs and images, and coordination of care. Coding Level of Care Code 20466 INP/OBS DISCH >30 MIN Diagnoses Osteomyelitis M86.9 Diabetic peripheral neuropathy associated with type 2 diabetes mellitus E11.42 Urinary retention R33.9"
== END 2025-03-19 16:00 | DRG 617 ==
LOC: ED 16:11 → EDINP 21:12 → SUATTDRO 21:12 → 3N 03-13 00:31 → 3W 03-15 15:08

== ENCOUNTER 2025-04-24 14:04 | Observation (INO) ==
[2025-04-24 15:13] LABS: Hematocrit (blood only) 36.9 % (42.0-52.0); Hemoglobin 12.2 g/dl (14.0-18.0); Immature Granulocytes # (auto) 0.01 K/uL (0.01-0.20); Immature Granulocytes % (auto) 0.2 %; Mean Corpuscular Hemoglobin 26.5 pg (25.0-34.0); Mean Corpuscular Volume 80.2 fL (80.0-100.0); Platelet Count 161 K/uL (130-400); RDW Standard Deviation 40.4 fL (36.4-46.3); Red Blood Count 4.60 M/uL (4.70-6.10); White Blood Count 5.05 K/ul (4.8-10.8)
--- NOTE | 2025-04-24 15:13 | Emergency Department Note ---
Impression & Plan Injury of thumb, right, superficial, infected, Hyperglycemia due to type 2 diabetes mellitus, Toe infection ED Provider Note Provider: Cesario Gregory MD CHIEF COMPLAINT: Right thumb wound, right second toe black spot HISTORY OF PRESENT ILLNESS: Patient is a 59-year-old gentleman significant past medical history including diabetes with history of diabetic ulcer and right toe amputations, seizures, hypertension, diabetic neuropathy presenting here referred by home health. Patient states home health visited yesterday noted that the nail on his right second toe has turned black. Also reports yesterday he was biting the edge of his right thumb and pulled off a large chunk of skin and it bled some. Noted some redness and some pain here over the thumb today. No fevers or chills. No chest pain or shortness of breath or abdominal pain reported. Denies other trauma to the hand or the foot. Blood sugars reportedly be in the 200s at home. PAST MEDICAL HISTORY: As noted above MEDICATIONS: Reviewed home medication list. SOCIAL HISTORY: Non-smoker PHYSICAL EXAM: GENERAL: alert and oriented in no acute distress on stretcher Head: normocephalic and atraumatic EYES: No injection, discharge or icterus. NECK: Trachea midline. ENT: Mucous membranes pink and moist. LUNGS: Airway patent. No retractions. Breath sounds clear with good air entry bilaterally. HEART: Regular rate and rhythm. No chest wall tenderness SKIN: Acyanotic, warm, dry, without rashes EXTREMITIES: 1+ bilateral lower extremity edema. Patient with an approximately 1 cm x 5 cm scab over the distal pad of the right thumb. Patient has some surrounding erythema but good movement of the fingers and hands on the right side with intact strength and sensation. Patient's fingernails on both hands appear although either partially removed or bitten with some slight erythema. Patient with removal of the right 1st and 4th toe. The second toe has a small area of blackness appears to be under the toenail there. No significant erythema or tenderness with significantly diminished sensation here. NEUROLOGICAL: No aphasia. No facial droop or slurred speech. Normal strength and tone in the extremities. Ambulatory. Patient's laboratory studies and imaging reviewed. Differential includes Cellulitis, abscess, MRSA infection, DVT, necrotizing fasciitis, dermatitis, drug eruption, allergic reaction, as well as other pathologies. IMPRESSION/MEDICAL DECISION MAKING: X-rays obtained of the hand and foot. No real trauma history reported other than biting the right thumb which do have concerns for infection here. Significant history of diabetes and osteomyelitis with toe amputations in the past. The right second toe question if there might be just a small amount of contusion here rather than infection but it is difficult to know for sure. Blood work is sent including cultures and inflammatory markers. Blood work here without significant leukocytosis. Lactate is mildly elevated 2.8 but not hypotensive. Blood sugar elevated 391 but I do not believe this represents HHS or DKA. Some slight pseudohyponatremia 132. No significant new acute renal dysfunction or transaminitis noted. Procalcitonin 0.15 not significantly elevated. I doubt sepsis or bacteremia but blood cultures are pending. ESR slightly elevated at 41. CRP pending. Discussed with the patient and given IV dose of Zosyn here initially. Given history of MRSA dose of vancomycin. Evidently it appears he has outpatient follow-up with the wound clinic and Dr. Landers podiatry and on Wednesday. Discussed options of trying outpatient oral antibiotics and follow-up versus observation stay. He certainly has a complex history and is a poorly controlled diabetic with blood sugar of almost 400 today. Discussion with patient and stepfather, they wish to stay for observation and do not feel comfortable going home. Did reached out to the hospitalist team for evaluation for observation here today. DIAGNOSIS: Right thumb infection, right second toe infection, hyperglycemia due to type 2 diabetes DISPOSITION: Hospitalist will evaluate Patient was agreeable with this plan. Past Med/Surg History Problem List (Updated 04/24/25 @ 19:29 by Moses Colmenares MD, PhD) Onychomycosis Hyperglycemia Lactic acid blood increased Self mutilating behavior Toe infection (Acute) Hyperglycemia due to type 2 diabetes mellitus (Acute) Injury of thumb, right, superficial, infected (Acute) Foot drop, right Cellulitis of right foot Status post amputation of lesser toe of right foot Urinary retention Acute hyponatremia (Acute) Axillary abscess Acute hyperglycemia (Acute) Seizure (Acute) Stroke-like symptom Acute confusion (Acute) Seizure (Acute) Metabolic acidosis Breakthrough seizure Tinea pedis Status post partial amputation of foot Loss of sensation History of diabetic ulcer of foot Diabetic peripheral neuropathy associated with type 2 diabetes mellitus Acute renal failure (ARF) (Acute) H/O repair of right rotator cuff (Chronic) Amputated toe (Chronic) "right great toe due to osteomyelitis" Dyslipidemia (Chronic) HTN (hypertension) (Chronic) Medical History Acute osteomyelitis of toe Diabetic ulcer of toe of right foot with necrosis of bone Osteomyelitis Encounter for pre-operative examination Essential hypertension Chronic kidney disease, stage III (moderate) AVM (arteriovenous malformation) Diabetes mellitus Hx of diabetic foot ulcer Gait instability uses cane and walker "due to mobility issues from my AVM" History of seizure "only happened once, this is when they found out he had an AVM" Shakes "due to his AVM" Sleep apnea does not use his device anymore AVM (arteriovenous malformation) brain does not f/u w/specialist Neuropathy Anxiety Diabetes mellitus, type 2 Dyslipidemia Hypertension Surgical History Hx of repair of right rotator cuff History of amputation of toe rt great toe History of bronchoscopy Hx of blepharoplasty bilateral Family History (Updated 04/24/25 @ 19:23 by Moses Colmenares MD, PhD) Father , at unknown age from unknown cause as patient was estranged from his father. No problems noted. Mother , at 78 years of age from CHF, due to acute [place], in the setting of insulin-dependent DM2, not HTN, not tobacco abuse, not ETOH abuse. No problems noted. 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 Feels Safe at Home: Yes Assistive Devices: Walker Allergies Allergies Allergy/AdvReac Type Severity Reaction Status Date / Time No Known Allergies Allergy Verified 04/24/25 16:56 Home Meds Home Medications Medication Instructions Recorded Confirmed aspirin 81 mg capsule 81 mg PO DAILY 08/30/23 04/24/25 acetaminophen 325 mg tablet 650 mg PO DAILY 12/08/24 04/24/25 amlodipine 5 mg tablet 5 mg PO DAILY 12/08/24 04/24/25 calcium carbonate 500 mg PO DAILY 12/08/24 04/24/25 docusate sodium 50 mg capsule 50 mg PO DAILY 12/08/24 04/24/25 escitalopram oxalate 10 mg tablet 10 mg PO DAILY 12/08/24 04/24/25 (Lexapro) levetiracetam 500 mg tablet 1,000 mg PO BID 12/08/24 04/24/25 (Keppra) losartan 25 mg tablet 25 mg PO DAILY 12/08/24 04/24/25 nortriptyline 10 mg capsule 10 mg PO HS 12/08/24 04/24/25 sennosides 8.6 mg capsule (senna) 8.6 mg PO HS 12/08/24 04/24/25 trazodone 100 mg tablet 100 mg PO HS 12/08/24 04/24/25 ascorbic acid (vitamin C) 500 mg 500 mg PO BID 03/12/25 04/24/25 tablet (Vitamin C) atorvastatin 80 mg tablet 80 mg PO HS 03/12/25 04/24/25 diclofenac sodium 1 % topical gel 4 g topical TID PRN Pain 03/12/25 04/24/25 gabapentin 300 mg capsule 300 mg PO TID 03/12/25 04/24/25 zinc acetate 50 mg (zinc) capsule 50 mg PO DAILY 03/12/25 04/24/25 empagliflozin 25 mg tablet 25 mg PO QAM 04/24/25 04/24/25 (Jardiance) Previous Rx's Medication Instructions Recorded ferrous gluconate 324 mg (38 mg 324 mg PO BIDM #30 tabs 12/15/24 iron) tablet insulin glargine 100 unit/mL 28 unit (0.28 mL) subcut QAM #10 mL 12/15/24 subcutaneous solution (Lantus U-100 Insulin) amoxicillin 500 mg-potassium 1 tab PO BID #20 tabs 04/06/25 clavulanate 125 mg tablet (Augmentin) doxycycline hyclate 100 mg capsule 100 mg PO BID #20 caps 04/06/25 Results & Data (ED) Vital Signs Vital Signs - 24 hr 04/24/25 14:22 04/24/25 16:05 04/24/25 18:00 Temperature 36.6 C Temperature Source Temporal Artery Scan Pulse Rate 94 H Pulse Rate [Apical] 89 87 Pulse Rhythm [Apical] Regular Regular Pulse Strength [Apical] Normal Normal Respiratory Rate 18 20 18 Respiratory Effort / Characteristics Non-Labored Spontaneous Non-Labored Spontaneous Non-Labored Spontaneous Respiratory Depth Normal Normal Normal Respiratory Pattern Regular Regular Blood Pressure 109/62 Blood Pressure [Right Arm] 144/87 H 134/70 Blood Pressure Mean 77 Blood Pressure Mean [Right Arm] 106 91 Pulse Oximetry 97 96 94 Oxygen Delivery Method Room Air Room Air Room Air Sepsis Recent Fever Within 48 Hours No Sepsis New/Unexplained Change in Mental Status N/A Sepsis Action Taken by Nursing No Action Required 04/24/25 18:41 04/24/25 19:51 04/24/25 20:09 Temperature Temperature Source Pulse Rate 90 90 Pulse Rate [Apical] 91 H Pulse Rhythm [Apical] Pulse Strength [Apical] Respiratory Rate 17 17 Respiratory Effort / Characteristics Non-Labored Spontaneous Respiratory Depth Normal Respiratory Pattern Regular Blood Pressure 133/75 Blood Pressure [Right Arm] 155/88 H Blood Pressure Mean 94 Blood Pressure Mean [Right Arm] 110 Pulse Oximetry 96 98 Oxygen Delivery Method Room Air Room Air Sepsis Recent Fever Within 48 Hours Sepsis New/Unexplained Change in Mental Status Sepsis Action Taken by Nursing 04/24/25 21:42 04/24/25 21:45 Temperature Temperature Source Pulse Rate 89 Pulse Rate [Apical] 90 Pulse Rhythm [Apical] Pulse Strength [Apical] Respiratory Rate 18 15 Respiratory Effort / Characteristics Non-Labored Spontaneous Respiratory Depth Normal Respiratory Pattern Regular Blood Pressure 167/98 H Blood Pressure [Right Arm] 153/119 H Blood Pressure Mean 121 Blood Pressure Mean [Right Arm] 130 Pulse Oximetry 98 97 Oxygen Delivery Method Room Air Room Air Sepsis Recent Fever Within 48 Hours Sepsis New/Unexplained Change in Mental Status Sepsis Action Taken by Nursing Laboratory Data 04/24/25 14:23 04/24/25 14:23 Lab Results 04/24/25 04/24/25 04/24/25 Range/Units 14:23 15:14 17:32 WBC 5.05 (4.8-10.8) K/ul RBC 4.60 L (4.70-6.10) M/uL Hgb 12.2 L (14.0-18.0) g/dl Hct 36.9 L (42.0-52.0) % MCV 80.2 (80.0-100.0) fL MCH 26.5 (25.0-34.0) pg MCHC 33.1 (32.0-36.0) g/dL RDW Std Deviation 40.4 (36.4-46.3) fL RDW Coeff of Brain 14.1 (11.5-14.5) % Plt Count 161 (130-400) K/uL MPV 8.8 L (9.4-12.4) fL Immature Gran % (Auto) 0.2 % Neut % (Auto) 65.4 % Lymph % (Auto) 20.0 % Hardee % (Auto) 7.9 % Eos % (Auto) 5.5 % Baso % (Auto) 1.0 % Neut # (Auto) 3.30 (1.40-6.50) K/uL Lymph # (Auto) 1.01 L (1.20-3.40) K/uL Hardee # (Auto) 0.40 (0.11-0.59) K/uL Eos # (Auto) 0.28 (0.00-0.50) K/uL Baso # (Auto) 0.05 (0.00-0.20) K/uL Immature Gran # (Auto) 0.01 (0.01-0.20) K/uL ESR 41 H (0-20) mm/hr Sodium 132 L (136-145) mmol/L Potassium 4.5 (3.5-5.1) mmol/L Chloride 97 L (98-107) mmol/L Carbon Dioxide 28 (21-32) mmol/L Anion Gap 7 (3-11) BUN 14 (6-23) mg/dl Creatinine 1.22 (0.6-1.4) mg/dl Est Cr Clr Drug Dosing 74.0 ml/min eGFR 68.29 BUN/Creatinine Ratio 11.5 (10-20) Glucose 391 H* (70-99(Fasting)) mg/dl POC Glucose (70-99) mg/dl Lactate 2.8 H* 2.9 H* (0.4-2.0) mmol/L Calcium 9.1 (8.6-10.3) mg/dl Total Bilirubin 0.4 (0.2-1.0) mg/dl AST 28 (13-39) U/L ALT 38 (7-52) U/L Alkaline Phosphatase 123 H (34-104) U/L C-Reactive Protein < 0.50 (0-0.5) mg/dl Total Protein 7.6 (6.0-8.3) gm/dl Albumin 3.7 (3.4-5.0) gm/dl Globulin 3.9 (2.5-4.0) gm/dl Albumin/Globulin Ratio 0.9 (0.9-2) Procalcitonin 0.15 (0-0.5) ng/ml 04/24/25 04/24/25 04/24/25 Range/Units 17:38 20:10 21:54 WBC (4.8-10.8) K/ul RBC (4.70-6.10) M/uL Hgb (14.0-18.0) g/dl Hct (42.0-52.0) % MCV (80.0-100.0) fL MCH (25.0-34.0) pg MCHC (32.0-36.0) g/dL RDW Std Deviation (36.4-46.3) fL RDW Coeff of Brain (11.5-14.5) % Plt Count (130-400) K/uL MPV (9.4-12.4) fL Immature Gran % (Auto) % Neut % (Auto) % Lymph % (Auto) % Hardee % (Auto) % Eos % (Auto) % Baso % (Auto) % Neut # (Auto) (1.40-6.50) K/uL Lymph # (Auto) (1.20-3.40) K/uL Hardee # (Auto) (0.11-0.59) K/uL Eos # (Auto) (0.00-0.50) K/uL Baso # (Auto) (0.00-0.20) K/uL Immature Gran # (Auto) (0.01-0.20) K/uL ESR (0-20) mm/hr Sodium (136-145) mmol/L Potassium (3.5-5.1) mmol/L Chloride (98-107) mmol/L Carbon Dioxide (21-32) mmol/L Anion Gap (3-11) BUN (6-23) mg/dl Creatinine (0.6-1.4) mg/dl Est Cr Clr Drug Dosing ml/min eGFR BUN/Creatinine Ratio (10-20) Glucose (70-99(Fasting)) mg/dl POC Glucose 245 H 289 H (70-99) mg/dl Lactate 2.6 H* (0.4-2.0) mmol/L Calcium (8.6-10.3) mg/dl Total Bilirubin (0.2-1.0) mg/dl AST (13-39) U/L ALT (7-52) U/L Alkaline Phosphatase (34-104) U/L C-Reactive Protein (0-0.5) mg/dl Total Protein (6.0-8.3) gm/dl Albumin (3.4-5.0) gm/dl Globulin (2.5-4.0) gm/dl Albumin/Globulin Ratio (0.9-2) Procalcitonin (0-0.5) ng/ml Administered Medications Escitalopram Oxalate (Escitalopram Oxalate 10 Mg Tab) 10 mg PO DAILY MARIANO Stop: 05/24/25 17:59 Last Admin: 04/24/25 21:58 Dose: 10 mg Documented By: DMH Heparin Sodium (Porcine) (Heparin Sod 5,000 Unit/0.5 Ml Vial) 5,000 units SQ Q12 MARIANO Stop: 05/24/25 20:59 Last Admin: 04/24/25 21:58 Dose: 5,000 units Documented By: DM Insulin Aspart (Insulin Aspart Per Unit Charge) 14 units SC ACHS MARIANO Stop: 05/24/25 20:59 Last Admin: 04/24/25 21:56 Dose: 14 units Documented By: DM Co-signed By: Insulin Glargine (Lantus Per Unit Charge) 28 units SQ QAM MARIANO Stop: 05/24/25 17:59 Last Admin: 04/24/25 21:55 Dose: 28 units Documented By: DM Co-signed By: Levetiracetam (Levetiracetam 500 Mg Tab) 1,000 mg PO BID MARIANO Stop: 05/24/25 20:59 Last Admin: 04/24/25 21:58 Dose: 1,000 mg Documented By: DMH Nortriptyline HCl (Nortriptyline Hcl 10 Mg Cap) 10 mg PO HS MARIANO Stop: 05/24/25 20:59 Last Admin: 04/24/25 21:58 Dose: 10 mg Documented By: DM Discontinued Medications Piperacillin Sod/Tazobactam Sod (Zosyn) 4.5 gm in 100 mls @ 200 mls/hr IV NOW ONE; Protocol Stop: 04/24/25 17:32 Last Infusion: 04/24/25 18:07 Dose: Infused Documented By: Admin: 04/24/25 17:33 Dose: 200 mls/hr Documented By: TDM Sodium Chloride (Nss) 500 mls @ 999 mls/hr IV .Q31M ONE Stop: 04/24/25 17:33 Last Infusion: 04/24/25 18:07 Dose: Infused Documented By: Admin: 04/24/25 17:34 Dose: 999 mls/hr Documented By: TDM Vancomycin HCl 2,000 mg/ (Sodium Chloride) 540 mls @ 200 mls/hr IV NOW ONE Stop: 04/24/25 19:47 Last Admin: 04/24/25 18:00 Dose: 200 mls/hr Documented By: TDM Ioversol (Optiray 320 100ml) 90 ml IV ONCE ONE Stop: 04/24/25 20:34 Last Admin: 04/24/25 20:33 Dose: 90 ml Documented By: ROSALIE Miscellaneous (Patient's Height &/Or Weight Needed) 1 each N/A NOW STA Stop: 04/24/25 15:05 Last Admin: 04/24/25 15:16 Dose: 1 each Documented By: ASW Imaging Data Radiologist's Impression: Hand X-Ray 04/24/25 14:26 RIGHT HAND 3 VIEWS CLINICAL HISTORY: Right hand injury. FINDINGS: 3 views of the right hand are obtained. No prior studies are available for comparison at the time of dictation. The skeletal structures appear osteopenic. No fracture is seen. Mild osteoarthritic change is noted throughout the wrist and hand. There is mild soft tissue edema throughout the fingers. Advanced atherosclerotic calcification is seen in the regional arteries. IMPRESSION: No acute bony abnormality is identified. Electronically signed by: Davie Mahoney M.D. 04/24/2025 3:33 PM Toe X-Ray 04/24/25 14:26 XR toe(s) RT min 2V HISTORY: 59 years-old Male Toe trauma COMPARISON: Radiographs 03/12/2025 TECHNIQUE: 3 views of the toes FINDINGS: Prior partial resection of the first digit at the level of the distal first metatarsal. Prior resection of the fourth toe at the level of the proximal aspect of the proximal phalanx. Chronic cortical thickening with deformities and subluxation of the second and third metatarsophalangeal joints is noted. Moderate diffuse soft tissue swelling with arterial calcifications. No new sites of acute osteomyelitis identified. IMPRESSION: 1. 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 2. No definite evidence of acute osteomyelitis on today's study. 3. Cortical thickening with subluxation and chronic deformities of the second and third toes. ACT 112: Negative or not required by law. The above report was generated using voice recognition software. It may contain grammatical, syntax or spelling errors. Electronically signed by: El Quarles M.D. 04/24/2025 3:[address] 04/24/25 18:23 Exam(s): CT RIGHT FOOT With Contrast IV Amt: 90 ml optiray 320 EXAM: CT Right Lower Extremity With Intravenous Contrast, Foot CLINICAL HISTORY: Reason for exam: R 2nd toenail black;abscess,gas,osteo?. TECHNIQUE: Axial computed tomography images of the right foot with intravenous contrast. CTDI is 19 mGy and DLP is 527 mGy-cm. Automated exposure control was utilized for the study. A dose lowering technique was utilized adhering to the principles of ALARA. CONTRAST: Patient received 90 ml optiray 320 of IV contrast COMPARISON: No relevant prior studies available. FINDINGS: Bones/joints: Lytic changes within the fourth proximal phalanx consistent with acute osteomyelitis. Scattered severe degenerative changes seen and periosteal changes within the distal metatarsals and phalanges. Difficult to exclude osteomyelitis within the other metatarsals or phalanges. No dislocation. Soft tissues: No soft tissue gas. Soft tissue edema. No fluid collection. No radiopaque foreign body. IMPRESSION: Concern for forefoot osteomyelitis. Recommend MRI. Electronically signed by: Lester Lloyd MD 04/24/25 21:[address] 04/24/25 18:23 Exam(s): CT EXTREMITY RIGHT UPPER With Contrast IV Amt: 90 ml optiray 320 EXAM: CT Right Upper Extremity With Intravenous Contrast CLINICAL HISTORY: Reason for exam: R thumb self-bite 04/23/2025;abscess,gas,osteo?. TECHNIQUE: Axial computed tomography images of the right upper extremity with intravenous contrast. CTDI is 20 mGy and DLP is 556.12 mGy-cm. Automated exposure control was utilized for the study. A dose lowering technique was utilized adhering to the principles of ALARA. CONTRAST: Patient received 90 ml optiray 320 of IV contrast COMPARISON: No relevant prior studies available. FINDINGS: Bones/joints: No acute fracture or malalignment. Soft tissues: No fluid collection or soft tissue gas. IMPRESSION: 1. No fluid collection or soft tissue gas. 2. No acute fracture or malalignment. Electronically signed by: Lester Lloyd MD 04/24/25 21:58 PM Discharge Plan Visit Data Chief Complaint: Toe Injury/Pain Stated Complaint: R FOOT TOE IS BLACK, R HAND THUMB INJURY ED Provider: Cesario Gregory Discharge Problem: Injury of thumb, right, superficial, infected, Hyperglycemia due to type 2 diabetes mellitus, Toe infection Patient Disposition: Being Evaluated by Hospitalist Condition: Fair Forms Stand Alone Forms: [facility] Prescriptions Prescriptions: No Action amoxicillin-pot clavulanate [Augmentin] 500-125 mg tablet 1 tab PO BID Qty: 20 0RF Rx Instructions: STARTED 04/06/25, UNABLE TO VERIFY HOW LONG MED IS TO BE TAKEN. doxycycline hyclate 100 mg capsule 100 mg PO BID Qty: 20 0RF Rx Instructions: ORDERED 04/06/25, UNABLE TO VERIFY HOW LONG TO TAKE THIS MED. aspirin 81 mg Capsule 81 mg PO DAILY atorvastatin 80 mg tablet 80 mg PO HS zinc acetate 50 mg (zinc) Capsule 50 mg PO DAILY ascorbic acid (vitamin C) [Vitamin C] 500 mg Tablet 500 mg PO BID gabapentin 300 mg capsule 300 mg PO TID diclofenac sodium 1 % Gel 4 g TOPICAL TID PRN (Reason: Pain) Jardiance 25 mg Tablet 25 mg PO QAM acetaminophen 325 mg Tablet 650 mg PO DAILY levetiracetam [Keppra] 500 mg Tablet 1,000 mg PO BID docusate sodium 50 mg Capsule 50 mg PO DAILY amlodipine 5 mg Tablet 5 mg PO DAILY trazodone 100 mg Tablet 100 mg PO HS nortriptyline 10 mg Capsule 10 mg PO HS losartan 25 mg Tablet 25 mg PO DAILY calcium carbonate 500 mg calcium (1,250 mg) Tablet,Chewable 500 mg PO DAILY senna 8.6 mg Capsule 8.6 mg PO HS escitalopram oxalate [Lexapro] 10 mg Tablet 10 mg PO DAILY insulin glargine [Lantus U-100 Insulin] 100 unit/mL Solution 28 unit subcut QAM Qty: 10 0RF ferrous gluconate 324 mg (38 mg iron) Tablet 324 mg PO BIDM Qty: 30 0RF Referrals Referrals: David Nicole MD [Primary Care Provider] - Discharge Problem: Injury of thumb, right, superficial, infected Qualifiers: Encounter type: initial encounter Qualified Code(s): S60.931A - Unspecified superficial injury of right thumb, initial encounter
[2025-04-24] MEDS: Patient's HEIGHT &/or WEIGHT Needed STA (15:16)
--- NOTE | 2025-04-24 15:34 | XRay Report ---
RIGHT HAND 3 VIEWS CLINICAL HISTORY: Right hand injury. FINDINGS: 3 views of the right hand are obtained. No prior studies are available for comparison at th e time of dictation. The skeletal structures appear osteopenic. No fracture is seen. Mild osteoarthri tic change is noted throughout the wrist and hand. There is mild soft tissue edema throughout the fin gers. Advanced atherosclerotic calcification is seen in the regional arteries. IMPRESSION: No acute bony abnormality is identified. Electronically signed by: Davie Mahoney M.D. 04/24/2025 3:33 PM
[2025-04-24 15:38] LABS: Alanine Aminotransferase 38 U/L (7-52); Albumin Globulin Ratio 0.9 (0.9-2); Albumin Level 3.7 gm/dl (3.4-5.0); Alkaline Phosphatase 123 U/L (34-104); Anion Gap 7 (3-11); Bilirubin,Total 0.4 mg/dl (0.2-1.0); Blood Urea Nitrogen 14 mg/dl (6-23); Calcium 9.1 mg/dl (8.6-10.3); Carbon Dioxide 28 mmol/L (21-32); Chloride 97 mmol/L (98-107); Creatinine Clr Calc Pharmacy 74.0 ml/min; Globulin 3.9 gm/dl (2.5-4.0); Glucose 391 mg/dl (70-99(Fasting)); Potassium 4.5 mmol/L (3.5-5.1); Sodium 132 mmol/L (136-145); Total Protein 7.6 gm/dl (6.0-8.3)
--- NOTE | 2025-04-24 15:58 | XRay Report ---
XR toe(s) RT min 2V HISTORY: 59 years-old Male Toe trauma COMPARISON: Radiographs 03/12/2025 TECHNIQUE: 3 views of the toes FINDINGS: Prior partial resection of the first digit at the level of the distal first metatarsal. Prior resecti on of the fourth toe at the level of the proximal aspect of the proximal phalanx. Chronic cortical th ickening with deformities and subluxation of the second and third metatarsophalangeal joints is noted . Moderate diffuse soft tissue swelling with arterial calcifications. No new sites of acute osteomyel itis identified. IMPRESSION: 1. 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 2. No definite evidence of acute osteomyelitis on today's study. 3. Cortical thickening with subluxation and chronic deformities of the second and third toes. ACT 112: Negative or not required by law. The above report was generated using voice recognition software. It may contain grammatical, syntax o r spelling errors. Electronically signed by: El Quarles M.D. 04/24/2025 3:57 PM
[2025-04-24] MEDS ORDERED: VANCOMYCIN CONSULT ACTIVE PRN (17:06)
[2025-04-24] MEDS: PIPERACILLIN/TAZOBACTAM 4.5 GM/100 ML BAG IV ONE (17:33)
[2025-04-24] MEDS ORDERED: ACETAMINOPHEN 325 MG TAB PO PRN (17:34)
[2025-04-24] MEDS: SODIUM CHLORIDE 0.9% 500 ML IV ONE (17:34)
[2025-04-24] MEDS: VANCOMYCIN HCL 2,000 MG in SODIUM CHLORIDE 0.9% 500 ML IV ONE (18:00)
[2025-04-24] MEDS ORDERED: DEXTROSE 50% 50 ML SYRINGE IV PRN (18:15)
[2025-04-24] MEDS ORDERED: GLUCOSE 40% GEL 15 GM TUBE PO PRN (18:15)
[2025-04-24] MEDS ORDERED: GLUCOSE 10 TAB/TUBE PO PRN (18:15)
[2025-04-24] MEDS ORDERED: GLUCAGON FOR INJ 1 MG VIAL SQ PRN (18:15)
[2025-04-24] MEDS ORDERED: CARBOHYDRATES FOR HYPOGLYCEMIA PO PRN (18:15)
--- NOTE | 2025-04-24 18:37 | History & Physical Report ---
Date of Service April 24, 2025 Assessment & Plan (1) Self mutilating behavior: Plan: As above in the History of Present Illness. (2) Onychomycosis: Plan: As above in the History of Present Illness. (3) Lactic acid blood increased: Plan: As above in the History of Present Illness. (4) Hyperglycemia: Plan: As above in the History of Present Illness. History of Present Illness Chief Complaint: "My stepdad brought me to the ER this afternoon (04/24/2025, 2:15pm) to get my right thumb checked out as I bit my right thumb yesterday afternoon (04/23/2025, 4:00pm) in a fit of anxiety, after I noticed that my right second toe turned from white to black in a few hours yesterday morning (04/23/2025, 9:00am). I can't see too well, so I don't know what part of my right second toe turned from white to black. Also, I can't feel anything in my right foot or my left foot because I have neuropathy from my diabetes real bad; so I don't have any pain feelings at all. I also can't tell if I bump into anything with my feet or toes. I had my right 4th toe chopped off a couple of weeks ago (e.g., 03/13/2025, 9:30am; [facility] [employer] [address]. Major Landers) because it got infected. Likewise, my right big toe got chopped off 10 years ago here at [facility] for the same thing; I can't remember who the doctor was that chopped off my right big toe. Anyways, both surgeries were ok with no problems, no infections afterwards. I don't have any fevers or chills. No complaints, really. I just want to make sure that my right thumb and my right second toe are not infected, that's all." Primary Care Provider: David Nicole MD 59 years old male with PMH of F[facility], obesity with BMI 32.8 (height 172.72 cm; weight 97.9 kg), hyperlipidemia on atorvastatin 80mg PO qhs, HTN on amlodipine 5mg PO daily and losartan 25mg PO daily, insulin dependent DM2 with HbA1c 13.6% (03/13/2025, 6:50am), no longer on metformin, but on empagliflozin 25mg PO qam and lantus 28 units SSQ qam, diabetic neuropathy on gabapentin 300mg PO tid, seizure disorder on keppra 1000mg PO bid, major depression on escitalopram 20mg PO daily, insomnia disorder on nortriptyline 10mg PO qhs and trazodone 100mg PO qhs, but wants to quit taking trazodone 100mg PO qhs "because I'm still sleepless at night, so it obviously doesn't work," and anxiety disorder, not on anxiolytics, but self-treated by patient biting his fingernails and fingers whenever he starts feeling anxious, who reports: "My stepdad brought me to the ER this afternoon (04/24/2025, 2:15pm) to get my right thumb checked out as I bit my right thumb yesterday afternoon (04/23/2025, 4:00pm) in a fit of anxiety, after I noticed that my right second toe turned from white to black in a few hours yesterday morning (04/23/2025, 9:00am). I can't see too well, so I don't know what part of my right second toe turned from white to black. Also, I can't feel anything in my right foot or my left foot because I have neuropathy from my diabetes real bad; so I don't have any pain feelings at all. I also can't tell if I bump into anything with my feet or toes. I had my right 4th toe chopped off a couple of weeks ago (e.g., 03/13/2025, 9:30am; [facility] [employer] [address]. Major Landers) because it got infected. Likewise, my right big toe got chopped off 10 years ago here at [facility] for the same thing; I can't remember who the doctor was that chopped off my right big toe. Anyways, both surgeries were ok with no problems, no infections afterwards. I don't have any fevers or chills. No complaints, really. I just want to make sure that my right thumb and my right second toe are not infected, that's all." Patient denies antecedent/coincident fevers, chills, diaphoresis, cough, wheeze, sore throat, hemoptysis, shortness of breath, dyspnea on exertion, chest pains, palpitations, pleurisy, nausea, vomiting, diarrhea, abdominal pain, pelvic pain, hematemesis, hematochezia, melena, hematuria, dysuria, frequency, urgency, headaches, dizziness, lightheadedness, visual changes, hearing changes, weakness, falls, syncope, trauma, travel history, sick contacts, or food/drug ingestions novel or new. All other review of systems are reported as negative by the patient on observation date 04/24/2025. In [facility] ER bed #A12B, patient was afebrile @ 36.6 degrees Celsius, HR 94, RR 18, O2 sat 97% on room air, and BP 109/62 (04/24/2025, 2:29pm). Exam was noted for a scabbed-over, 1cm horizontal bite wound to the ventral aspect of patient's right thumb with no surrounding erythema, edema, induration, warmth, tenderness, crepitus, fluctuance, discharge (sanguineous, serous, suppurative), ulceration, malodor, or lymphangitic streaking. In addition, patient's right thumbnail was bitten/chewed in multiple places, along with a triangular patch of skin bitten off at the central-distal right thumb plate with no active bleeding, oozing, ecchymosis, or hematoma noted. Patient's right foot was very dry and desquamating @ former right hallux surgical scar site. Patient's right second toe nail appeared to harbor a subungual hematoma that was non-tender, as was the rest of patient's entire right foot, ankle, knee, and leg. Right second toe was also very dry and desquamating with no surrounding erythema, edema, induration, warmth, tenderness, crepitus, fluctuance, discharge (sanguineous, serous, suppurative), ulceration, malodor, or lymphangitic streaking. Patient's right third toenail was noted for onychomycosis; right third toe was also very dry and desquamating with no surrounding erythema, edema, induration, warmth, tenderness, crepitus, fluctuance, discharge (sanguineous, serous, suppurative), ulceration, malodor, or lymphangitic streaking. Patient's right fourth toe surgical site was well-healed with no wound dehiscence at all. Patient's right fifth toenail was noted for onychomycosis; right fifth toe was also very dry and desquamating with no surrounding erythema, edema, induration, warmth, tenderness, crepitus, fluctuance, discharge (sanguineous, serous, suppurative), ulceration, malodor, or lymphangitic streaking. Patient's right sole was clear/clean and dry, but no desquamation and no surrounding erythema, edema, induration, warmth, tenderness, crepitus, fluctuance, discharge (sanguineous, serous, suppurative), ulceration, malodor, or lymphangitic streaking. Labs in [facility] ER bed #A12B included: ESR #1 41 mm/hr (04/24/2025, 2:23pm). ESR #2 (04/25/2025, 6:00am). CRP #1 (04/24/2025, 2:23pm). WBC 5.05, N65 L20 M8 E6 B1, Hb 12.2, MCV 80.2, MCHC 33.1, platelet 161 (04/24/2025, 2:23pm). Na 132, glucose 391, CO2 28, anion gap 7, Na corrected 137, K 4.5, BUN 14, creatinine 1.22, Ca 9.1 (04/24/2025, 2:23pm). Lactic acid #1 2.8 mmol/L (04/24/2025, 3:14pm). Lactic acid #2 (04/24/2025, 7:14pm). Procalcitonin #1 0.15 ng/mL (04/24/2025, 3:14pm). Additional testing in [facility] ER bed #A12B included: Right hand x-ray, 3 views (04/24/2025, 2:26pm): 1. No acute bony abnormality is identified. Right foot x-ray, 2 views (04/24/2025, 2:26pm): 1. 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 2. No definite evidence of acute osteomyelitis on today's study. 3. Cortical thickening with subluxation and chronic deformities of the second and third toes. Patient was subsequently placed in OBSERVATION on the hospitalist service @ [facility] on 04/24/2025 with the following diagnoses: 1. Self-inflicted, self-mutilating bite wound to right thumb, scabbed over, R/O right thumb abscess/osteomyelitis. 2. Right second toe onychomycosis, R/O right second toe abscess/osteomyelitis. 3. Acute lactic acid elevation with lactic acid #1 2.8 mmol/L (04/24/2025, 3:14pm). 4. Acute hyperglycemia with serum glucose 391 mg/dL, CO2 28, anion gap 7 (04/24/2025, 2:23pm). To address #1, patient awaits right hand/thumb CT with IV contrast (04/24/2025, 6:23pm) to rule out right thumb abscess/osteomyelitis. In the interim, patient received empiric zosyn 4.5g IV x 1 dose (04/24/2025, 5:33pm) and vancomycin 2g IV x 1 dose (04/24/2025, 6:00pm) in [facility] ER bed #A12B. My clinical index of suspicion remains low for right thumb cellulitis/abscess/osteomyelitis, and hence, I have opted to hold off empiric antibiotics on observation date 04/24/2025. In addition, should right hand/thumb CT with IV contrast (04/24/2025, 6:23pm) reveal fluid collection concerning for abscess and/or bony involvement, then holding off empiric antibiotics in order to obtain antibiotic-naive tissue sample for biopsy is reasonable in this patient who does not appear infected at all. I will also check repeat right thumb exam, vitals, WBC w/diff, ESR, CRP, lactic acid, and procalcitonin levels in the 04/25/2025 am. Of final note, I have started patient on lorazepam 0.5mg PO q6 prn anxiety (04/24/2025, 7:32pm) to mitigate further self-inflected, self-mutilating bite wound(s). To address #2, patient awaits right foot CT with IV contrast (04/24/2025, 6:23pm) to rule out right second toe abscess/osteomyelitis. In the interim, patient received empiric zosyn 4.5g IV x 1 dose (04/24/2025, 5:33pm) and vancomycin 2g IV x 1 dose (04/24/2025, 6:00pm) in [facility] ER bed #A12B. My clinical index of suspicion remains low for right second toe cellulitis/abscess/osteomyelitis, and hence, I have opted to hold off empiric antibiotics on observation date 04/24/2025. In addition, should right foot CT with IV contrast (04/24/2025, 6:23pm) reveal fluid collection concerning for abscess and/or bony involvement, then holding off empiric antibiotics in order to obtain antibiotic-naive tissue sample for biopsy is reasonable in this patient who does not appear infected at all. I will also check repeat right second toe exam, vitals, WBC w/diff, ESR, CRP, lactic acid, and procalcitonin levels in the 04/25/2025 am. To address #3, patient received 500 mL of 0.9% NS @ 999 mL/hr (04/24/2025, 5:34pm). I will check repeat, post-hydration lactic acid #2 (04/24/2025, 7:14pm). At this time, I surmise that the etiology of acute lactic acid elevation is due to acute dehydration, which in turn, is due to acute hyperglycemia-mediated osmotic diuresis. To address #4, patient was started on a carbohydrate consistent diet and hospital-started aspart insulin 14 units SQ qac + qhs, POC glucose qac + qhs, while continuing patient's home-scheduled lantus insulin 28 units SQ qam. Of note, patient is being held off his home-scheduled SGLT2 inhibitor, empagliflozin 25mg PO qam, given the potential that patient may need to undergo surgical / podiatric intervention within the next 3 days, currently deemed improbable, but still possible, pending performance and publication of right hand/thumb CT with IV contrast (04/24/2025, 6:23pm) and right foot CT with IV contrast (04/24/2025, 6:23pm). Allergies Allergy/AdvReac Type Severity Reaction Status Date / Time No Known Allergies Allergy Verified 04/24/25 16:56 Home Medications Medication Instructions Recorded Confirmed Type aspirin 81 mg capsule 81 mg PO DAILY 08/30/23 04/24/25 History acetaminophen 325 mg tablet 650 mg PO DAILY 12/08/24 04/24/25 History amlodipine 5 mg tablet 5 mg PO DAILY 12/08/24 04/24/25 History calcium carbonate 500 mg PO DAILY 12/08/24 04/24/25 History docusate sodium 50 mg capsule 50 mg PO DAILY 12/08/24 04/24/25 History escitalopram oxalate 10 mg tablet 10 mg PO DAILY 12/08/24 04/24/25 History (Lexapro) levetiracetam 500 mg tablet 1,000 mg PO BID 12/08/24 04/24/25 History (Keppra) losartan 25 mg tablet 25 mg PO DAILY 12/08/24 04/24/25 History nortriptyline 10 mg capsule 10 mg PO HS 12/08/24 04/24/25 History sennosides 8.6 mg capsule (senna) 8.6 mg PO HS 12/08/24 04/24/25 History trazodone 100 mg tablet 100 mg PO HS 12/08/24 04/24/25 History ferrous gluconate 324 mg (38 mg 324 mg PO BIDM #30 tabs 12/15/24 04/24/25 Rx iron) tablet insulin glargine 100 unit/mL 28 unit (0.28 mL) subcut QAM #10 mL 12/15/24 04/24/25 Rx subcutaneous solution (Lantus U-100 Insulin) ascorbic acid (vitamin C) 500 mg 500 mg PO BID 03/12/25 04/24/25 History tablet (Vitamin C) atorvastatin 80 mg tablet 80 mg PO HS 03/12/25 04/24/25 History diclofenac sodium 1 % topical gel 4 g topical TID PRN Pain 03/12/25 04/24/25 History gabapentin 300 mg capsule 300 mg PO TID 03/12/25 04/24/25 History zinc acetate 50 mg (zinc) capsule 50 mg PO DAILY 03/12/25 04/24/25 History amoxicillin 500 mg-potassium 1 tab PO BID #20 tabs 04/06/25 04/24/25 Rx clavulanate 125 mg tablet (Augmentin) doxycycline hyclate 100 mg capsule 100 mg PO BID #20 caps 04/06/25 04/24/25 Rx empagliflozin 25 mg tablet 25 mg PO QAM 04/24/25 04/24/25 History (Jardiance) Past Med/Surg History Problem List (Updated 04/24/25 @ 19:29 by Moses Colmenares MD, PhD) Onychomycosis Hyperglycemia Lactic acid blood increased Self mutilating behavior Toe infection (Acute) Hyperglycemia due to type 2 diabetes mellitus (Acute) Injury of thumb, right, superficial, infected (Acute) Foot drop, right Cellulitis of right foot Status post amputation of lesser toe of right foot Urinary retention Acute hyponatremia (Acute) Axillary abscess Acute hyperglycemia (Acute) Seizure (Acute) Stroke-like symptom Acute confusion (Acute) Seizure (Acute) Metabolic acidosis Breakthrough seizure Tinea pedis Status post partial amputation of foot Loss of sensation History of diabetic ulcer of foot Diabetic peripheral neuropathy associated with type 2 diabetes mellitus Acute renal failure (ARF) (Acute) H/O repair of right rotator cuff (Chronic) Amputated toe (Chronic) "right great toe due to osteomyelitis" Dyslipidemia (Chronic) HTN (hypertension) (Chronic) Medical History Acute osteomyelitis of toe Diabetic ulcer of toe of right foot with necrosis of bone Osteomyelitis Encounter for pre-operative examination Essential hypertension Chronic kidney disease, stage III (moderate) AVM (arteriovenous malformation) Diabetes mellitus Hx of diabetic foot ulcer Gait instability uses cane and walker "due to mobility issues from my AVM" History of seizure "only happened once, this is when they found out he had an AVM" Shakes "due to his AVM" Sleep apnea does not use his device anymore AVM (arteriovenous malformation) brain does not f/u w/specialist Neuropathy Anxiety Diabetes mellitus, type 2 Dyslipidemia Hypertension Surgical History Hx of repair of right rotator cuff History of amputation of toe rt great toe History of bronchoscopy Hx of blepharoplasty bilateral Family History (Updated 04/24/25 @ 19:23 by Moses Colmenares MD, PhD) Father , at unknown age from unknown cause as patient was estranged from his father. No problems noted. Mother , at 78 years of age from CHF, due to acute TN, in the setting of insulin-dependent DM2, not HTN, not tobacco abuse, not ETOH abuse. No problems noted. 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 Feels Safe at Home: Yes Assistive Devices: Walker Review of Systems Constitutional: As above in the History of Present Illness. Physical Exam Constitutional: General: Comfortable, cooperative, coherent. Wide awake and alert. Not confused, lethargic, or obtunded. Patient speaks in complete, fluent, and articulate sentences without pause, interruption, cough, or wheeze. HEENT: NC/AT. EOMI. PERRL. No nystagmus, gaze paresis, anisocoria, miosis, mydriasis, chemosis, hyphema, scleral injection, conjunctivitis, or pterygium. No otorrhea. No rhinorrhea. Neck: Supple, no stridor, bruit, or goiter. Jugular venous pressure could not be estimated due to patient's obesity with BMI 32.8 (height 172.7 cm; weight 97.9 kg) which precluded identification of jugular veins in the neck and sternal angle of Jose on the chest. Lymph: No anterior/posterior cervical lymphadenopathy, supraclavicular/infraclavicular lymphadenopathy, axilla/epitrochlear/inguinal lymphadenopathy. Chest: Symmetric rise and fall with respirations. Non-tender to palpation. Heart: RRR, S1 and S2. No S3 or S4 summation gallop. No tripartite friction rub. No murmur. Lungs: Bibasilar crackles. No audible expiratory wheeze, egophony, pectoriloquy, increase in tactile fremitus, or flatness/dullness to percussion at the bases. Abd: Soft, non-tender, non-distended. Bowel sounds auscultated in all 4 quadrants. No rebound, guarding, White's sign, or organomegaly. Ext: No clubbing, cyanosis, or edema. Skin: No decubitus ulcer or enanthem. Skin: Scabbed-over, 1cm horizontal bite wound to the ventral aspect of patient's right thumb with no surrounding erythema, edema, induration, warmth, tenderness, crepitus, fluctuance, discharge (sanguineous, serous, suppurative), ulceration, malodor, or lymphangitic streaking. In addition, patient's right thumbnail was bitten/chewed in multiple places, along with a triangular patch of skin bitten off at the central-distal right thumb plate with no active bleeding, oozing, ecchymosis, or hematoma noted. Patient's right foot was very dry and desquamating @ former right hallux surgical scar site. Patient's right second toe nail appeared to harbor a subungual hematoma that was non-tender, as was the rest of patient's entire right foot, ankle, knee, and leg. Right second toe was also very dry and desquamating with no surrounding erythema, edema, induration, warmth, tenderness, crepitus, fluctuance, discharge (sanguineous, serous, suppurative), ulceration, malodor, or lymphangitic streaking. Patient's right third toenail was noted for onychomycosis; right third toe was also very dry and desquamating with no surrounding erythema, edema, induration, warmth, tenderness, crepitus, fluctuance, discharge (sanguineous, serous, suppurative), ulceration, malodor, or lymphangitic streaking. Patient's right fourth toe surgical site was well-healed with no wound dehiscence at all. Patient's right fifth toenail was noted for onychomycosis; right fifth toe was also very dry and desquamating with no surrounding erythema, edema, induration, warmth, tenderness, crepitus, fluctuance, discharge (sanguineous, serous, suppurative), ulceration, malodor, or lymphangitic streaking. Patient's right sole was clear/clean and dry, but no desquamation and no surrounding erythema, edema, induration, warmth, tenderness, crepitus, fluctuance, discharge (sanguineous, serous, suppurative), ulceration, malodor, or lymphangitic streaking. Neuro: No tremors, tics, or myoclonus. DTR+. 5/5 motor strength in all 4 extremities, both proximally and distally. Urology: No madera catheter. No urethral discharge. Results & Data Results & Data Vital Signs (Past 12 Hours) Vital Signs Temp Pulse Pulse Resp BP BP Pulse Ox 04/24/25 18:00 87 18 134/70 94 04/24/25 16:05 89 20 144/87 H 96 04/24/25 14:22 36.6 C 94 H 18 109/62 97 O2 Del Method 04/24/25 18:00 Room Air 04/24/25 16:05 Room Air 04/24/25 14:22 Room Air Laboratory Results As above in the History of Present Illness. Diagnostic Findings As above in the History of Present Illness. Code Status & VTE Plan VTE Prophylaxis Plan VTE Prophylaxis will be ordered: Yes PG Care Time/CCT Total # of Minutes Spent Total Time Spent with Patient: Total time spent is greater than 50% in coordination of care (as documented) at patient's floor/unit and/or counseling patient: Coding Level of Care Code 34035 INT INP/OBS CARE 2/55MIN Diagnoses Self mutilating behavior Z72.89 Onychomycosis B35.1 Lactic acid blood increased R79.89 Hyperglycemia R73.9
[2025-04-24] MEDS ORDERED: LORazepam 0.5 MG TAB PO PRN (19:30)
[2025-04-24] MEDS: OPTIRAY 320 100ml IV ONE (20:33)
--- NOTE | 2025-04-24 21:51 | CT Scan Report ---
Exam(s): CT RIGHT FOOT With Contrast IV Amt: 90 ml optiray 320 EXAM: CT Right Lower Extremity With Intravenous Contrast, Foot CLINICAL HISTORY: Reason for exam: R 2nd toenail black;abscess,gas,osteo?. TECHNIQUE: Axial computed tomography images of the right foot with intravenous contrast. CTDI is 19 mGy and DLP is 527 mGy-cm. Automated exposure control was utilized for the study. A dose lowering technique was utilized adhering to the principles of ALARA. CONTRAST: Patient received 90 ml optiray 320 of IV contrast COMPARISON: No relevant prior studies available. FINDINGS: Bones/joints: Lytic changes within the fourth proximal phalanx consistent with acute osteomyelitis. Scattered severe degenerative changes seen and periosteal changes within the distal metatarsals and phalanges. Difficult to exclude osteomyelitis within the other metatarsals or phalanges. No dislocation. Soft tissues: No soft tissue gas. Soft tissue edema. No fluid collection. No radiopaque foreign body. IMPRESSION: Concern for forefoot osteomyelitis. Recommend MRI. Electronically signed by: Lester Lloyd MD 04/24/25 21:50 PM
[2025-04-24] MEDS: LANTUS PER UNIT CHARGE SQ SCH (21:55)
[2025-04-24] MEDS: INSULIN ASPART PER UNIT CHARGE SC SCH (21:56)
[2025-04-24] MEDS: levETIRAcetam 500 MG TAB PO SCH (21:58)
[2025-04-24] MEDS: NORTRIPTYLINE HCL 10 MG CAP PO SCH (21:58)
[2025-04-24] MEDS: ESCITALOPRAM OXALATE 10 MG TAB PO SCH (21:58)
[2025-04-24] MEDS: HEPARIN SOD 5,000 UNIT/0.5 ML VIAL SQ SCH (21:58)
--- NOTE | 2025-04-24 21:59 | CT Scan Report ---
Exam(s): CT EXTREMITY RIGHT UPPER With Contrast IV Amt: 90 ml optiray 320 EXAM: CT Right Upper Extremity With Intravenous Contrast CLINICAL HISTORY: Reason for exam: R thumb self-bite 04/23/2025;abscess,gas,osteo?. TECHNIQUE: Axial computed tomography images of the right upper extremity with intravenous contrast. CTDI is 20 mGy and DLP is 556.12 mGy-cm. Automated exposure control was utilized for the study. A dose lowering technique was utilized adhering to the principles of ALARA. CONTRAST: Patient received 90 ml optiray 320 of IV contrast COMPARISON: No relevant prior studies available. FINDINGS: Bones/joints: No acute fracture or malalignment. Soft tissues: No fluid collection or soft tissue gas. IMPRESSION: 1. No fluid collection or soft tissue gas. 2. No acute fracture or malalignment. Electronically signed by: Lester Lloyd MD 04/24/25 21:58 PM
[2025-04-25 00:13] VITALS: RESP 18
[2025-04-25] MEDS: VANCOMYCIN HCL / NSS 1,000 MG/270 ML BAG IV SCH (05:49)
[2025-04-25 08:11] LABS: Hematocrit (blood only) 36.3 % (42.0-52.0); Hemoglobin 12.2 g/dl (14.0-18.0); Immature Granulocytes # (auto) 0.01 K/uL (0.01-0.20); Immature Granulocytes % (auto) 0.3 %; Mean Corpuscular Hemoglobin 26.9 pg (25.0-34.0); Mean Corpuscular Volume 80.1 fL (80.0-100.0); Platelet Count 156 K/uL (130-400); RDW Standard Deviation 40.6 fL (36.4-46.3); Red Blood Count 4.53 M/uL (4.70-6.10); White Blood Count 3.67 K/ul (4.8-10.8)
[2025-04-25 08:28] LABS: Alanine Aminotransferase 31 U/L (7-52); Albumin Globulin Ratio 0.9 (0.9-2); Albumin Level 3.3 gm/dl (3.4-5.0); Alkaline Phosphatase 107 U/L (34-104); Anion Gap 7 (3-11); Bilirubin,Total 0.6 mg/dl (0.2-1.0); Blood Urea Nitrogen 16 mg/dl (6-23); Calcium 9.1 mg/dl (8.6-10.3); Carbon Dioxide 30 mmol/L (21-32); Chloride 103 mmol/L (98-107); Creatinine Clr Calc Pharmacy 79.7 ml/min; Globulin 3.8 gm/dl (2.5-4.0); Glucose 118 mg/dl (70-99(Fasting)); Potassium 4.4 mmol/L (3.5-5.1); Sodium 140 mmol/L (136-145); Total Protein 7.1 gm/dl (6.0-8.3)
--- NOTE | 2025-04-25 11:10 | Pharmacy Report ---
Pharmacy PK ABX Note - Date of Service April 25, 2025 - Assessment and Plan Assessment 59 year old M receiving vancomycin for treatment of right toe infection. Patient with diabetic neuropathy--recent (03/2025) amputation of right 4th toe and past amputation of right 1st toe (~10 years ago) d/t infection. Patient also currently with right thumb wound due to self-bite. -CT of right foot --concern for forefoot osteomyelitis, MRI has been ordered to assess. -CT of right thumb ruled out abscess/osteomyelitis. -Pertinent microbiologic data includes: Blood cultures x 2 from 04/24 are pending Day # 2 of antimicrobial therapy. Plan Vancomycin * Loading dose: 2000 mg IV x 1 * Maintenance dose: 1000 mg IV every 12 hours * Regimen is predicted to achieve target AUC/DONNA of 400-600 mg/L.hr * Random level ordered for: 04/26 with morning labs. Pharmacy will continue to follow and will adjust dose/frequency as necessary. Thank you. Pharmacy has transitioned to AUC monitoring for vancomycin. AUC/DONNA is the preferred PK/PD target and is associated with decreased risk of nephrotoxicity compared to traditional trough targets.
[2025-04-25] MEDS: GADOBUTROL 65ML VIAL IV ONE (12:32)
--- NOTE | 2025-04-25 12:57 | Magnetic Resonance Report ---
MR foot RT wo/w con HISTORY: 59 years-old Male Eval for osteomyelitis in right foot, right 2nd to chronic pain of the ri ght foot with open wound. Clinical concern for acute osteomyelitis. COMPARISON: Foot CT 04/24/2025, radiographs 04/24/2025 and also 03/12/2025 TECHNIQUE: Multiplanar multisequence MRI of the right foot was obtained with and without IV contrast. FINDINGS: Study is motion degraded. Prior partial resection of the first digit at the level of the distal first metatarsal with subcortic al cystic change and sclerosis at the amputation site and no evidence of acute osteomyelitis. Prior r esection of the fourth toe at the level of the proximal aspect of the proximal phalanx without defini te evidence of acute osteomyelitis. Chronic cortical thickening with deformities and subluxation of t he second and third metatarsophalangeal joints is noted. Moderate diffuse subcutaneous edema with mus peyton atrophy arterial calcifications. No new sites of acute osteomyelitis identified. The imaged flexo r and extensor tendons appear intact. No abnormal enhancement or drainable fluid collection. Small am ount of the distal second toe. IMPRESSION: 1. 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 2. No definite evidence of acute osteomyelitis on today's study. 3. Cortical thickening with subluxation and chronic deformities of the second and third metatarsophal angeal joints. 4. Small wound of the distal second toe without abscess. ACT 112: Negative or not required by law. The above report was generated using voice recognition software. It may contain grammatical, syntax o r spelling errors. Electronically signed by: El Quarles M.D. 04/25/2025 12:55 PM
--- NOTE | 2025-04-25 17:35 | Hospitalist Progress Note ---
Date of Service April 25, 2025 Assessment & Plan (1) Self mutilating behavior: Plan: To address #1, patient underwent right hand/thumb CT with IV contrast (04/24/2025, 6:23pm), which excluded right thumb abscess/osteomyelitis. In the interim, patient received empiric zosyn 4.5g IV x 1 dose (04/24/2025, 5:33pm) and vancomycin 2g IV x 1 dose (04/24/2025, 6:00pm) in [facility] ER bed #A12B. My clinical index of suspicion remains low for right thumb cellulitis/abscess/osteomyelitis, and hence, I have opted to hold off empiric antibiotics on observation date 04/24/2025 and post-observation date 04/25/2025. I will check repeat right thumb exam, vitals, WBC w/diff, ESR, CRP, lactic acid, and procalcitonin levels in the 04/26/2025 am. Of final note, I started patient on lorazepam 0.5mg PO q6 prn anxiety (04/24/2025, 7:32pm) to mitigate further self-inflected, self-mutilating bite wound(s). (2) Onychomycosis: Plan: To address #2, patient underwent right foot CT with IV contrast (04/24/2025, 6:23pm) to rule out right second toe abscess/osteomyelitis. cf., CT right foot with IV contrast (04/24/2025. 6:23pm): 1. Bones/joints: Lytic changes within the fourth proximal phalanx consistent with acute osteomyelitis. 2. Scattered severe degenerative changes seen and periosteal changes within the distal metatarsals and phalanges. Difficult to exclude osteomyelitis within the other metatarsals or phalanges. 3. No dislocation. 4. Soft tissues: No soft tissue gas. Soft tissue edema. No fluid collection. 5. No radiopaque foreign body. In the interim, patient received empiric zosyn 4.5g IV x 1 dose (04/24/2025, 5:33pm) and vancomycin 2g IV x 1 dose (04/24/2025, 6:00pm) in [facility] ER bed #A12B. My clinical index of suspicion remains low for right second toe cellulitis/abscess/osteomyelitis, and hence, I opted to hold off empiric antibiotics on observation date 04/24/2025. Patient subsequently underwent: cf., MRI right foot with/without IV contrast (04/25/2025, 10:44am): 1. 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 2. No definite evidence of acute osteomyelitis on today's study. 3. Cortical thickening with subluxation and chronic deformities of the second and third metatarsophalangeal joints. 4. Small wound of the distal second toe without abscess. Given the patient's unremarkable right foot exam on observation date 04/24/2025, on post-observation date 04/25/2025, along with repeat blood tests (see below) demonstrating marginally elevated ESR levels, normal CRP levels, resolved acute lactic acid elevation after having received IV fluid rehydration therapy utilizing 1 liter of 0.9% NS @ 999 mL/hr (04/24/2025, 5:34pm)(thereby suggesting that acute lactic acid elevation was due to acute dehydration, which in turn, was due to acute hyperglycemia-mediated osmotic diuresis with initial serum glucose 391 mg/dL, normal CO2 28, and normal anion gap 7 (04/24/2025, 2:23pm), and was NOT due to acute infection of right foot/right second toe), and normal procalcitonin levels, my clinical index of suspicion for acute right foot/right 2nd toe abscess/osteomyelitis remains low on 04/25/2025. Hence, I have opted to hold off empiric antibiotics. I will also check repeat right second toe exam, vitals, WBC w/diff, ESR, CRP, lactic acid, and procalcitonin levels in the 04/26/2025 am. cf., ESR #1 41 mm/hr (04/24/2025, 2:23pm). cf., ESR #2 35 mm/hr (04/25/2025, 7:36am). cf., CRP #1 < 0.50 mg/dL (04/24/2025, 2:23pm). cf., CRP #2 < 0.50 mg/dL (04/25/2025, 7:36am). cf., Lactic acid #1 2.8 mmol/L (04/24/2025, 3:14pm). cf., Lactic acid #2 2.9 mmol/L (04/24/2025, 5:32pm). cf., Lactic acid #3 2.6 mmol/L (04/24/2025, 8:10pm). cf., Lactic acid #4 1.0 mmol/L (04/25/2025, 7:36am). cf., Procalcitonin #1 0.15 ng/mL (04/24/2025, 3:14pm). cf., Procalcitonin #2 0.14 ng/mL (04/25/2025, 7:36am). cf., WBC 5.05, N65 L20 M8 E6 B1, Hb 12.2, MCV 80.2, MCHC 33.1, platelet 161 (04/24/2025, 2:23pm). cf., WBC 3.67, N56 L26 M9 E6 B1, Hb 12.2, MCV 80.1, MCHC 33.6, platelet 156 (04/25/2025, 7:36am). (3) Lactic acid blood increased: Plan: To address #3, patient received 500 mL of 0.9% NS @ 999 mL/hr (04/24/2025, 5:34pm). Subsequently, acute lactic acid elevation RESOLVED, as shown below: cf., Lactic acid #1 2.8 mmol/L (04/24/2025, 3:14pm). cf., Lactic acid #2 2.9 mmol/L (04/24/2025, 5:32pm). cf., Lactic acid #3 2.6 mmol/L (04/24/2025, 8:10pm). cf., Lactic acid #4 1.0 mmol/L (04/25/2025, 7:36am). At this time, I surmise that the etiology of acute lactic acid elevation was due to acute dehydration, which in turn, was due to acute hyperglycemia-mediated osmotic diuresis with initial serum glucose 391 mg/dL, normal CO2 28, and normal anion gap 7 (04/24/2025, 2:23pm). (4) Hyperglycemia: Plan: To address #4, patient was started on a carbohydrate consistent diet and hospital-started aspart insulin 14 units SQ qac + qhs, POC glucose qac + qhs, while continuing patient's home-scheduled lantus insulin 28 units SQ qam. Of note, patient is being held off his home-scheduled SGLT2 inhibitor, empagliflozin 25mg PO qam, given that patient's serum glucose level is well- controlled on 04/25/2025 with a serum glucose level of 118 mg/dL (04/25/2025, 7:36am). Admission and Anticipated Discharge Date Admission Date: April 24, 2025 Subjective "I feel fine today. No problems." Review of Systems Constitutional: Negative for antecedent/coincident fevers, chills, diaphoresis, cough, wheeze, sore throat, hemoptysis, chest pains, palpitations, pleurisy, nausea, vomiting, diarrhea, abdominal pain, pelvic pain, hematemesis, hematochezia, melena, hematuria, dysuria, frequency, urgency, headaches, dizziness, lightheadedness, visual changes, hearing changes, weakness, falls, syncope, trauma, travel history, sick contacts, or food/drug ingestions novel or new. All other review of systems are reported as negative by the patient on 05/26/2025. Physical Exam Constitutional: General: Comfortable, cooperative, coherent. Wide awake and alert. Not confused, lethargic, or obtunded. Patient speaks in complete, fluent, and articulate sentences without pause, interruption, cough, or wheeze. HEENT: NC/AT. EOMI. PERRL. No nystagmus, gaze paresis, anisocoria, miosis, mydriasis, chemosis, hyphema, scleral injection, conjunctivitis, or pterygium. No otorrhea. No rhinorrhea. Neck: Supple, no stridor, bruit, or goiter. Jugular venous pressure could not be estimated due to patient's obesity with BMI 32.8 (height 172.7 cm; weight 97.9 kg) which precluded identification of jugular veins in the neck and sternal angle of Jose on the chest. Lymph: No anterior/posterior cervical lymphadenopathy, supraclavicular/infraclavicular lymphadenopathy, axilla/epitrochlear/inguinal lymphadenopathy. Chest: Symmetric rise and fall with respirations. Non-tender to palpation. Heart: RRR, S1 and S2. No S3 or S4 summation gallop. No tripartite friction rub. No murmur. Lungs: Bibasilar crackles. No audible expiratory wheeze, egophony, pectoriloquy, increase in tactile fremitus, or flatness/dullness to percussion at the bases. Abd: Soft, non-tender, non-distended. Bowel sounds auscultated in all 4 quadrants. No rebound, guarding, White's sign, or organomegaly. Ext: No clubbing, cyanosis, or edema. Skin: No decubitus ulcer or enanthem. Skin: Scabbed-over, 1cm horizontal bite wound to the ventral aspect of patient's right thumb with no surrounding erythema, edema, induration, warmth, tenderness, crepitus, fluctuance, discharge (sanguineous, serous, suppurative), ulceration, malodor, or lymphangitic streaking. In addition, patient's right thumbnail was bitten/chewed in multiple places, along with a triangular patch of skin bitten off at the central-distal right thumb plate with no active bleeding, oozing, ecchymosis, or hematoma noted. Patient's right foot was very dry and desquamating @ former right hallux surgical scar site. Patient's right second toe nail appeared to harbor a subungual hematoma that was non-tender, as was the rest of patient's entire right foot, ankle, knee, and leg. Right second toe was also very dry and desquamating with no surrounding erythema, edema, induration, warmth, tenderness, crepitus, fluctuance, discharge (sanguineous, serous, suppurative), ulceration, malodor, or lymphangitic streaking. Patient's right third toenail was noted for onychomycosis; right third toe was also very dry and desquamating with no surrounding erythema, edema, induration, warmth, tenderness, crepitus, fluctuance, discharge (sanguineous, serous, suppurative), ulceration, malodor, or lymphangitic streaking. Patient's right fourth toe surgical site was well-healed with no wound dehiscence at all. Patient's right fifth toenail was noted for onychomycosis; right fifth toe was also very dry and desquamating with no surrounding erythema, edema, induration, warmth, tenderness, crepitus, fluctuance, discharge (sanguineous, serous, suppurative), ulceration, malodor, or lymphangitic streaking. Patient's right sole was clear/clean and dry, but no desquamation and no surrounding erythema, edema, induration, warmth, tenderness, crepitus, fluctuance, discharge (sanguineous, serous, suppurative), ulceration, malodor, or lymphangitic streaking. Neuro: No tremors, tics, or myoclonus. DTR+. 5/5 motor strength in all 4 extremities, both proximally and distally. Urology: No madera catheter. No urethral discharge. Results & Data Results & Data Vital Signs (Past 12 Hours) Vital Signs Temp Pulse Resp BP Pulse Ox O2 Del Method 04/25/25 15:16 36.6 C 89 18 127/73 97 Room Air 04/25/25 07:58 36.6 C 84 18 138/74 93 Room Air Laboratory Results ESR #1 41 mm/hr (04/24/2025, 2:23pm). ESR #2 35 mm/hr (04/25/2025, 7:36am). CRP #1 < 0.50 mg/dL (04/24/2025, 2:23pm). CRP #2 < 0.50 mg/dL (04/25/2025, 7:36am). Lactic acid #1 2.8 mmol/L (04/24/2025, 3:14pm). Lactic acid #2 2.9 mmol/L (04/24/2025, 5:32pm). Lactic acid #3 2.6 mmol/L (04/24/2025, 8:10pm). Lactic acid #4 1.0 mmol/L (04/25/2025, 7:36am). Procalcitonin #1 0.15 ng/mL (04/24/2025, 3:14pm). Procalcitonin #2 0.14 ng/mL (04/25/2025, 7:36am). WBC 5.05, N65 L20 M8 E6 B1, Hb 12.2, MCV 80.2, MCHC 33.1, platelet 161 (04/24/2025, 2:23pm). WBC 3.67, N56 L26 M9 E6 B1, Hb 12.2, MCV 80.1, MCHC 33.6, platelet 156 (04/25/2025, 7:36am). Na 132, glucose 391, CO2 28, anion gap 7, Na corrected 137, K 4.5, BUN 14, creatinine 1.22, Ca 9.1 (04/24/2025, 2:23pm). Na 140, glucose 118, CO2 30, anion gap 7, K 4.4, BUN 16, creatinine 1.13, Ca 9.1 (04/25/2025, 7:36am). Diagnostic Findings Right hand x-ray, 3 views (04/24/2025, 2:26pm): 1. No acute bony abnormality is identified. Right foot x-ray, 2 views (04/24/2025, 2:26pm): 1. 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 2. No definite evidence of acute osteomyelitis on today's study. 3. Cortical thickening with subluxation and chronic deformities of the second and third toes. CT right foot with IV contrast (04/24/2025. 6:23pm): 1. Bones/joints: Lytic changes within the fourth proximal phalanx consistent with acute osteomyelitis. 2. Scattered severe degenerative changes seen and periosteal changes within the distal metatarsals and phalanges. Difficult to exclude osteomyelitis within the other metatarsals or phalanges. 3. No dislocation. 4. Soft tissues: No soft tissue gas. Soft tissue edema. No fluid collection. 5. No radiopaque foreign body. CT right hand with IV contrast (04/24/2025, 6:23pm): 1. Bones/joints: No acute fracture or malalignment. 2. Soft tissues: No fluid collection or soft tissue gas. MRI right foot with/without IV contrast (04/25/2025, 10:44am): 1. 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 2. No definite evidence of acute osteomyelitis on today's study. 3. Cortical thickening with subluxation and chronic deformities of the second and third metatarsophalangeal joints. 4. Small wound of the distal second toe without abscess. PG Care Time/CCT Total # of Minutes Spent Total Time Spent with Patient: Total time spent is greater than 50% in coordination of care (as documented) at patient's floor/unit and/or counseling patient: Coding Level of Care Code 68105 SUB INP/OBS CARE 235MIN Diagnoses Self mutilating behavior Z72.89 Onychomycosis B35.1 Lactic acid blood increased R79.89 Hyperglycemia R73.9
[2025-04-25 23:07] VITALS: TEMP 98.1; O2SAT 96
[2025-04-26] MEDS ORDERED: VANCOMYCIN LEVEL ONE (05:00)
[2025-04-26 06:27] LABS: Hematocrit (blood only) 36.0 % (42.0-52.0); Hemoglobin 11.7 g/dl (14.0-18.0); Immature Granulocytes # (auto) 0.01 K/uL (0.01-0.20); Immature Granulocytes % (auto) 0.3 %; Mean Corpuscular Hemoglobin 26.2 pg (25.0-34.0); Mean Corpuscular Volume 80.5 fL (80.0-100.0); Platelet Count 144 K/uL (130-400); RDW Standard Deviation 41.4 fL (36.4-46.3); Red Blood Count 4.47 M/uL (4.70-6.10); White Blood Count 3.61 K/ul (4.8-10.8)
[2025-04-26 06:52] LABS: Anion Gap 7 (3-11); Blood Urea Nitrogen 18 mg/dl (6-23); Calcium 9.0 mg/dl (8.6-10.3); Carbon Dioxide 29 mmol/L (21-32); Chloride 104 mmol/L (98-107); Creatinine Clr Calc Pharmacy 84.2 ml/min; Glucose 93 mg/dl (70-99(Fasting)); Potassium 4.2 mmol/L (3.5-5.1); Sodium 140 mmol/L (136-145)
[2025-04-26 08:21] VITALS: BP 157/88; PULSE 71
--- NOTE | 2025-04-26 09:38 | Discharge Summary ---
Discharge Summary Date of Service April 26, 2025 Principal Dx & Hospital Course #1 = Principal Diagnosis (1) Self mutilating behavior: To address #1, patient underwent right hand/thumb CT with IV contrast (04/24/2025, 6:23pm), which excluded right thumb abscess/osteomyelitis. In the interim, patient received empiric zosyn 4.5g IV x 1 dose (04/24/2025, 5:33pm) and vancomycin 2g IV x 1 dose (04/24/2025, 6:00pm) in [facility] ER bed #A12B. My clinical index of suspicion remains low for right thumb cellulitis/abscess/osteomyelitis, and hence, I have opted to hold off empiric antibiotics on observation date 04/24/2025 and post-observation date 04/25/2025. I will check repeat right thumb exam, vitals, WBC w/diff, ESR, CRP, lactic acid, and procalcitonin levels in the 04/26/2025 am. Of final note, I started patient on lorazepam 0.5mg PO q6 prn anxiety (04/24/2025, 7:32pm) to mitigate further self-inflected, self-mutilating bite wound(s). (2) Onychomycosis: To address #2, patient underwent right foot CT with IV contrast (04/24/2025, 6:23pm) to rule out right second toe abscess/osteomyelitis. cf., CT right foot with IV contrast (04/24/2025. 6:23pm): 1. Bones/joints: Lytic changes within the fourth proximal phalanx consistent with acute osteomyelitis. 2. Scattered severe degenerative changes seen and periosteal changes within the distal metatarsals and phalanges. Difficult to exclude osteomyelitis within the other metatarsals or phalanges. 3. No dislocation. 4. Soft tissues: No soft tissue gas. Soft tissue edema. No fluid collection. 5. No radiopaque foreign body. In the interim, patient received empiric zosyn 4.5g IV x 1 dose (04/24/2025, 5:33pm) and vancomycin 2g IV x 1 dose (04/24/2025, 6:00pm) in [facility] ER bed #A12B. My clinical index of suspicion remains low for right second toe cellulitis/abscess/osteomyelitis, and hence, I opted to hold off empiric antibiotics on observation date 04/24/2025 through discharge date . Patient subsequently underwent: cf., MRI right foot with/without IV contrast (04/25/2025, 10:44am): 1. 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 2. No definite evidence of acute osteomyelitis on today's study. 3. Cortical thickening with subluxation and chronic deformities of the second and third metatarsophalangeal joints. 4. Small wound of the distal second toe without abscess. Given the patient's unremarkable right foot exam on observation date 04/24/2025, on post-observation date 04/25/2025, along with repeat blood tests (see below) demonstrating marginally elevated ESR levels, normal CRP levels, resolved acute lactic acid elevation after having received IV fluid rehydration therapy utilizing 1 liter of 0.9% NS @ 999 mL/hr (04/24/2025, 5:34pm)(thereby suggesting that acute lactic acid elevation was due to acute dehydration, which in turn, was due to acute hyperglycemia-mediated osmotic diuresis with initial serum glucose 391 mg/dL, normal CO2 28, and normal anion gap 7 (04/24/2025, 2:23pm), and was NOT due to acute infection of right foot/right second toe), and normal procalcitonin levels, my clinical index of suspicion for acute right foot/right 2nd toe abscess/osteomyelitis remains low on 04/25/2025. Hence, I opted to hold off empiric antibiotics. cf., ESR #1 41 mm/hr (04/24/2025, 2:23pm). cf., ESR #2 35 mm/hr (04/25/2025, 7:36am). cf., ESR #3 32 mm/hr (04/26/2025, 6:17am). cf., CRP #1 < 0.50 mg/dL (04/24/2025, 2:23pm). cf., CRP #2 < 0.50 mg/dL (04/25/2025, 7:36am). cf., CRP #3 < 0.50 mg/dL (04/26/2025, 6:17am). cf., Lactic acid #1 2.8 mmol/L (04/24/2025, 3:14pm). cf., Lactic acid #2 2.9 mmol/L (04/24/2025, 5:32pm). cf., Lactic acid #3 2.6 mmol/L (04/24/2025, 8:10pm). cf., Lactic acid #4 1.0 mmol/L (04/25/2025, 7:36am). cf., Lactic acid #5 0.7 mmol/L (04/26/2025, 6:17am). cf., Procalcitonin #1 0.15 ng/mL (04/24/2025, 3:14pm). cf., Procalcitonin #2 0.14 ng/mL (04/25/2025, 7:36am). cf., Procalcitonin #3 0.12 ng/mL (04/26/2025, 6:17am). cf., WBC 5.05, N65 L20 M 8 E6 B1, Hb 12.2, MCV 80.2, MCHC 33.1, platelet 161 (04/24/2025, 2:23pm). cf., WBC 3.67, N56 L26 M 9 E6 B1, Hb 12.2, MCV 80.1, MCHC 33.6, platelet 156 (04/25/2025, 7:36am). cf., WBC 3.61, N52 L29 M11 E6 B1, Hb 11.7, MCV 80.5, MCHC 32.5, platelet 144 (04/26/2025, 6:17am). (3) Lactic acid blood increased: To address #3, patient received 500 mL of 0.9% NS @ 999 mL/hr (04/24/2025, 5:34pm). Subsequently, acute lactic acid elevation RESOLVED, as shown below: cf., Lactic acid #1 2.8 mmol/L (04/24/2025, 3:14pm). cf., Lactic acid #2 2.9 mmol/L (04/24/2025, 5:32pm). cf., Lactic acid #3 2.6 mmol/L (04/24/2025, 8:10pm). cf., Lactic acid #4 1.0 mmol/L (04/25/2025, 7:36am). cf., Lactic acid #5 0.7 mmol/L (04/26/2025, 6:17am). At this time, I surmise that the etiology of acute lactic acid elevation was due to acute dehydration, which in turn, was due to acute hyperglycemia-mediated osmotic diuresis with initial serum glucose 391 mg/dL, normal CO2 28, and normal anion gap 7 (04/24/2025, 2:23pm). (4) Hyperglycemia: To address #4, patient was started on a carbohydrate consistent diet and hos pital-started aspart insulin 14 units SQ qac + qhs, POC glucose qac + qhs, while continuing patient's home-scheduled lantus insulin 28 units SQ qam. Of note, patient was held off his home-scheduled SGLT2 inhibitor, empagliflozin 25mg PO qam, given that patient's serum glucose level was well-controlled on 04/25/2025 with a serum glucose level of 118 mg/dL (04/25/2025, 7:36am) and remained well-controlled on discharge date 04/26/2025 with a discharge serum glucose level of 93 mg/dL (04/26/2025, 6:17am). Patient will continue with a carbohydrate consistent diet and his home-scheduled lantus insulin 28 units SQ qam, and patient will resume his home-scheduled empagliflozin 25mg PO qam on hospital discharge back to his home on 04/26/2025. 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% (03/13/2025, 6:50am), no longer on metformin, but on empagliflozin 25mg PO qam and lantus 28 units SSQ qam, diabetic neuropathy on gabapentin 300mg PO tid, seizure disorder on keppra 1000mg PO bid, major depression on escitalopram 20mg PO daily, insomnia disorder on nortriptyline 10mg PO qhs and trazodone 100mg PO qhs, but wants to quit taking trazodone 100mg PO qhs "because I'm still sleepless at night, so it obviously doesn't work," and anxiety disorder, not on anxiolytics, but self-treated by patient biting his fingernails and fingers whenever he starts feeling anxious, who reports: "My stepdad brought me to the ER this afternoon (04/24/2025, 2:15pm) to get my right thumb checked out as I bit my right thumb yesterday afternoon (04/23/2025, 4:00pm) in a fit of anxiety, after I noticed that my right second toe turned from white to black in a few hours yesterday morning (04/23/2025, 9:00am). I can't see too well, so I don't know what part of my right second toe turned from white to black. Also, I can't feel anything in my right foot or my left foot because I have neuropathy from my diabetes real bad; so I don't have any pain feelings at all. I also can't tell if I bump into anything with my feet or toes. I had my right 4th toe chopped off a couple of weeks ago (e.g., 03/13/2025, 9:30am; [facility] [employer] Dr. Major Landers) because it got infected. Likewise, my right big toe got chopped off 10 years ago here at [facility] for the same thing; I can't remember who the doctor was that chopped off my right big toe. Anyways, both surgeries were ok with no problems, no infections afterwards. I don't have any fevers or chills. No complaints, really. I just want to make sure that my right thumb and my right second toe are not infected, that's all." Patient denies antecedent/coincident fevers, chills, diaphoresis, cough, wheeze, sore throat, hemoptysis, shortness of breath, dyspnea on exertion, chest pains, palpitations, pleurisy, nausea, vomiting, diarrhea, abdominal pain, pelvic pain, hematemesis, hematochezia, melena, hematuria, dysuria, frequency, urgency, headaches, dizziness, lightheadedness, visual changes, hearing changes, weakness, falls, syncope, trauma, travel history, sick contacts, or food/drug ingestions novel or new. All other review of systems are reported as negative by the patient on observation date 04/24/2025. In [facility] ER bed #A12B, patient was afebrile @ 36.6 degrees Celsius, HR 94, RR 18, O2 sat 97% on room air, and BP 109/62 (04/24/2025, 2:29pm). Exam was noted for a scabbed-over, 1cm horizontal bite wound to the ventral aspect of patient's right thumb with no surrounding erythema, edema, induration, warmth, tenderness, crepitus, fluctuance, discharge (sanguineous, serous, suppurative), ulceration, malodor, or lymphangitic streaki ng. In addition, patient's right thumbnail was bitten/chewed in multiple places, along with a triangular patch of skin bitten off at the central-distal right thumb plate with no active bleeding, oozing, ecchymosis, or hematoma noted. Patient's right foot was very dry and desquamating @ former right hallux surgical scar site. Patient's right second toe nail appeared to harbor a subungual hematoma that was non-tender, as was the rest of patient's entire right foot, ankle, knee, and leg. Right second toe was also very dry and desquamating with no surrounding erythema, edema, induration, warmth, tenderness, crepitus, fluctuance, discharge (sanguineous, serous, suppurative), ulceration, malodor, or lymphangitic streaking. Patient's right third toenail was noted for onychomycosis; right third toe was also very dry and desquamating with no surrounding erythema, edema, induration, warmth, tenderness, crepitus, fluctuance, discharge (sanguineous, serous, suppurative), ulceration, malodor, or lymphangitic streaking. Patient's right fourth toe surgical site was well-healed with no wound dehiscence at all. Patient's right fifth toenail was noted for onychomycosis; right fifth toe was also very dry and desquamating with no surrounding erythema, edema, induration, warmth, tenderness, crepitus, fluctuance, discharge (sanguineous, serous, suppurative), ulceration, malodor, or lymphangitic streaking. Patient's right sole was clear/clean and dry, but no desquamation and no surrounding erythema, edema, induration, warmth, tenderness, crepitus, fluctuance, discharge (sanguineous, serous, suppurative), ulceration, malodor, or lymphangitic streaking. Labs in [facility] ER bed #A12B included: ESR #1 41 mm/hr (04/24/2025, 2:23pm). ESR #2 (04/25/2025, 6:00am). CRP #1 (04/24/2025, 2:23pm). WBC 5.05, N65 L20 M8 E6 B1, Hb 12.2, MCV 80.2, MCHC 33.1, platelet 161 (04/24/2025, 2:23pm). Na 132, glucose 391, CO2 28, anion gap 7, Na corrected 137, K 4.5, BUN 14, creatinine 1.22, Ca 9.1 (04/24/2025, 2:23pm). Lactic acid #1 2.8 mmol/L (04/24/2025, 3:14pm). Lactic acid #2 (04/24/2025, 7:14pm). Procalcitonin #1 0.15 ng/mL (04/24/2025, 3:14pm). Additional testing in [facility] ER bed #A12B included: Right hand x-ray, 3 views (04/24/2025, 2:26pm): 1. No acute bony abnormality is identified. Right foot x-ray, 2 views (04/24/2025, 2:26pm): 1. 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 2. No definite evidence of acute osteomyelitis on today's study. 3. Cortical thickening with subluxation and chronic deformities of the second and third toes. Patient was subsequently placed in OBSERVATION on the hospitalist service @ [facility] on 04/24/2025 with the following diagnoses: 1. Self-inflicted, self-mutilating bite wound to right thumb, scabbed over, R/O right thumb abscess/osteomyelitis. 2. Right second toe onychomycosis, R/O right second toe abscess/osteomyelitis. 3. Acute lactic acid elevation with lactic acid #1 2.8 mmol/L (04/24/2025, 3:14pm). 4. Acute hyperglycemia with serum glucose 391 mg/dL, CO2 28, anion gap 7 (04/24/2025, 2:23pm). To address #1, patient awaits right hand/thumb CT with IV contrast (04/24/2025, 6:23pm) to rule out right thumb abscess/osteomyelitis. In the interim, patient received empiric zosyn 4.5g IV x 1 dose (04/24/2025, 5:33pm) and vancomycin 2g IV x 1 dose (04/24/2025, 6:00pm) in [facility] ER bed #A12B. My clinical index of suspicion remains low for right thumb cellulitis/abscess/osteomyelitis, and hence, I have opted to hold off empiric antibiotics on observation date 04/24/2025. In addition, should right hand/thumb CT with IV contrast (04/24/2025, 6:23pm) reveal fluid collection concerning for abscess and/or bony involvement, then holding off empiric antibiotics in order to obtain antibiotic-naive tissue sample for biopsy is reasonable in this patient who does not appear infected at all. I will also check repeat right thumb exam, vitals, WBC w/diff, ESR, CRP, lactic acid, and procalcitonin levels in the 04/25/2025 am. Of final note, I have started patient on lorazepam 0.5mg PO q6 prn anxiety (04/24/2025, 7:32pm) to mitigate further self-inflected, self-mutilating bite wound(s). To address #2, patient awaits right foot CT with IV contrast (04/24/2025, 6:23pm) to rule out right second toe abscess/osteomyelitis. In the interim, patient received empiric zosyn 4.5g IV x 1 dose (04/24/2025, 5:33pm) and vancomycin 2g IV x 1 dose (04/24/2025, 6:00pm) in [facility] ER bed #A12B. My clinical index of suspicion remains low for right second toe cellulitis/abscess/osteomyelitis, and hence, I have opted to hold off empiric antibiotics on observation date 04/24/2025. In addition, should right foot CT with IV contrast (04/24/2025, 6:23pm) reveal fluid collection concerning for abscess and/or bony involvement, then holding off empiric antibiotics in order to obtain antibiotic-naive tissue sample for biopsy is reasonable in this patient who does not appear infected at all. I will also check repeat right second toe exam, vitals, WBC w/diff, ESR, CRP, lactic acid, and procalcitonin levels in the 04/25/2025 am. To address #3, patient received 500 mL of 0.9% NS @ 999 mL/hr (04/24/2025, 5:34pm). I will check repeat, post-hydration lactic acid #2 (04/24/2025, 7:14pm). At this time, I surmise that the etiology of acute lactic acid elevation is due to acute dehydration, which in turn, is due to acute hyperglycemia-mediated osmotic diuresis. To address #4, patient was started on a carbohydrate consistent diet and hospital-started aspart insulin 14 units SQ qac + qhs, POC glucose qac + qhs, while continuing patient's home-scheduled lantus insulin 28 units SQ qam. Of note, patient is being held off his home-scheduled SGLT2 inhibitor, empagliflozin 25mg PO qam, given the potential that patient may need to undergo surgical / podiatric intervention within the next 3 days, currently deemed improbable, but still possible, pending performance and publication of right hand/thumb CT with IV contrast (04/24/2025, 6:23pm) and right foot CT with IV contrast (04/24/2025, 6:23pm). Discharge Exam Constitutional General: Comfortable, cooperative, coherent. Wide awake and alert. Not confused, lethargic, or obtunded. Patient speaks in complete, fluent, and articulate sentences without pause, interruption, cough, or wheeze. HEENT: NC/AT. EOMI. PERRL. No nystagmus, gaze paresis, anisocoria, miosis, mydriasis, chemosis, hyphema, scleral injection, conjunctivitis, or pterygium. No otorrhea. No rhinorrhea. Neck: Supple, no stridor, bruit, or goiter. Jugular venous pressure cannot be estimated due to patient's obesity with BMI 32.8 (height 172.7 cm; weight 97.9 kg) which precluded identification of jugular veins in the neck and sternal angle of Jose on the chest. Lymph: No anterior/posterior cervical lymphadenopathy, supraclavicular/infraclavicular lymphadenopathy, axilla/epitrochlear/inguinal lymphadenopathy. Chest: Symmetric rise and fall with respirations. Non-tender to palpation. Heart: RRR, S1 and S2. No S3 or S4 summation gallop. No tripartite friction rub. No murmur. Lungs: Bibasilar crackles. No audible expiratory wheeze, egophony, pectoriloquy, increase in tactile fremitus, or flatness/dullness to percussion at the bases. Abd: Soft, non-tender, non-distended. Bowel sounds auscultated in all 4 quadrants. No rebound, guarding, White's sign, or organomegaly. Ext: No clubbing, cyanosis, or edema. Skin: No decubitus ulcer or enanthem. Skin: Scabbed-over, 1cm horizontal self-bite wound to the ventral aspect of patient's right thumb with no surrounding erythema, edema, induration, warmth, tenderness, crepitus, fluctuance, discharge (sanguineous, serous, suppurative), ulceration, malodor, or lymphangitic streaking. In addition, patient's right thumbnail was self-bitten/chewed in multiple places, along with a triangular patch of skin bitten off at the central-distal right thumb plate with no active bleeding, oozing, ecchymosis, or hematoma noted. Patient's right foot is very dry and desquamating @ former right hallux surgical scar site. Patient's right second toe nail appears to harbor a subungual hematoma that was non-tender, as was the rest of patient's entire right foot, ankle, knee, and leg. Right second toe was also very dry and desquamating with no surrounding erythema, edema, induration, warmth, tenderness, crepitus, fluctuance, discharge (sanguineous, serous, suppurative), ulceration, malodor, or lymphangitic streaking. Patient's right third toenail is noted for onychomycosis; right third toe was also very dry and desquamating with no surrounding erythema, edema, induration, warmth, tenderness, crepitus, fluctuance, discharge (sanguineous, serous, suppurative), ulceration, malodor, or lymphangitic streaking. Patient's right fourth toe surgical site is well-healed with no wound dehiscence at all. Patient's right fifth toenail is noted for onychomycosis; right fifth toe was also very dry and desquamating with no surrounding erythema, edema, induration, warmth, tenderness, crepitus, fluctuance, discharge (sanguineous, serous, suppurative), ulceration, malodor, or lymphangitic streaking. Patient's right sole is clear/clean and dry, but no desquamation and no surrounding erythema, edema, induration, warmth, tenderness, crepitus, fluctuance, discharge (sanguineous, serous, suppurative), ulceration, malodor, or lymphangitic streaking. Neuro: No tremors, tics, or myoclonus. DTR+. 5/5 motor strength in all 4 extremities, both proximally and distally. Urology: No madera catheter. No urethral discharge. Discharge Plan Discharge Items Reason For Visit: PATIENT HIT HIS OWN RIGHT THUMB AND RIPPED OF HIS Discharge Diagnosis: 1. Self-inflicted, self-mutilating bite wound to right thumb, scabbed over; s/p R/O right thumb abscess/osteomyelitis. 2. Right second toe onychomycosis; s/p R/O right second toe abscess/osteomyelitis. 3. Acute lactic acid elevation with lactic acid #1 2.8 mmol/L (04/24/2025, 3:14pm); RESOLVED with repeat lactic acid #2 0.7 mmol/L (04/26/2025, 6:17am). 4. Acute hyperglycemia with serum glucose 391 mg/dL, CO2 28, anion gap 7 (04/24/2025, 2:23pm); RESOLVED with repeat serum glucose 118 mg/dL (04/25/2025, 7:36am) and discharge serum glucose 93 mg/dL (04/26/2025, 6:17am). Condition on Discharge: Fair Activity: Resume your previous activity Lifting: Gradually increase as tolerated Bathing: No limitations Exercise/Sports: Gradually increase as tolerated Weightbearing: Full weightbearing Non-emergency contact: Primary Care Provider Call non-emergency contact if: you have any medication questions Follow-up/Referrals: David Nicole MD [Primary Care Provider] - Diet: Carb Consistent or DM2 and Heart Healthy Addtl Attending Provider Instructions: See your PCP Dr. David Nicole within 5-7 days of hospital discharge. Pending Studies at Discharge: No Stand-Alone Forms: My [facility] Social, Smoking Cessation Medications and DC Order Prescriptions: Continued aspirin 81 mg Capsule 81 mg PO DAILY atorvastatin 80 mg tablet 80 mg PO HS zinc acetate 50 mg (zinc) Capsule 50 mg PO DAILY ascorbic acid (vitamin C) [Vitamin C] 500 mg Tablet 500 mg PO BID gabapentin 300 mg capsule 300 mg PO TID diclofenac sodium 1 % Gel 4 g TOPICAL TID PRN (Reason: Pain) Jardiance 25 mg Tablet 25 mg PO QAM acetaminophen 325 mg Tablet 650 mg PO DAILY levetiracetam [Keppra] 500 mg Tablet 1,000 mg PO BID docusate sodium 50 mg Capsule 50 mg PO DAILY amlodipine 5 mg Tablet 5 mg PO DAILY trazodone 100 mg Tablet 100 mg PO HS nortriptyline 10 mg Capsule 10 mg PO HS losartan 25 mg Tablet 25 mg PO DAILY calcium carbonate 500 mg calcium (1,250 mg) Tablet,Chewable 500 mg PO DAILY senna 8.6 mg Capsule 8.6 mg PO HS escitalopram oxalate [Lexapro] 10 mg Tablet 10 mg PO DAILY insulin glargine [Lantus U-100 Insulin] 100 unit/mL Solution 28 unit subcut QAM Qty: 10 0RF ferrous gluconate 324 mg (38 mg iron) Tablet 324 mg PO BIDM Qty: 30 0RF Discontinued amoxicillin-pot clavulanate [Augmentin] 500-125 mg tablet 1 tab PO BID Qty: 20 0RF Rx Instructions: STARTED 04/06/25, UNABLE TO VERIFY HOW LONG MED IS TO BE TAKEN. doxycycline hyclate 100 mg capsule 100 mg PO BID Qty: 20 0RF Rx Instructions: ORDERED 10/3/25, UNABLE TO VERIFY HOW LONG TO TAKE THIS MED. Admission Data Admit Date/Time: 04/24/25 17:34 Attending Provider: Moses Colmenares Admit Provider: Moses Colmenares Primary Care Provider: David Nicole Other Providers: Moses Colmenares; [place],[facility] Hospital Stay Data Consultations 04/24/25 17:24 ED Decision to Admit Stat Diagnostic Imagining Performed 04/24/25 18:23 CT foot RT w con Stat CT hand RT w con Stat 04/25/25 10:44 MRI Foot [MR foot RT wo/w con] Stat Pending Results Patient Have Any Pending Studies at Discharge: No Discharge Instructions Given to Patient (Per Discharging Provider) See your PCP Dr. David Nicole within 5-7 days of hospital discharge. Total Time Total Time Spent Total Time Spent (In Minutes): 35 minutes. Of this time period, 19 minutes were spent in coordinating patient's discharge. Coding Level of Care Code 30723 INP/OBS DISCH >30 MIN Diagnoses Self mutilating behavior Z72.89 Onychomycosis B35.1 Lactic acid blood increased R79.89 Hyperglycemia R73.9
== END 2025-04-26 11:42 | disposition home health service (06) ==
LOC: SUATTDRO → ED 14:04 → 2N 17:34 → INTOOBSV 17:34 → 2N 22:10